=== PATIENT | male | born 1955 | race Caucasian/White ===

== ENCOUNTER 2017-12-11 09:53 | Outpatient (CLI) | payer MEDICARE, MEDICAID, SELFPAY ==
[2017-12-11] MEDS: Albuterol HFA 18 GM 200 PUFF INH IH (10:59)
[2017-12-11] MEDS: Inhaler, Assist Device 1 EACH MC (10:59)
--- NOTE | 2017-12-11 15:42 | PFT_ITS ---
PULMONARY FUNCTION TEST REPORT DATE OF SERVICE: December 11, 2017 REQUESTING PROVIDER: Tatyana Pugh APRN Spirometry shows no evidence of obstructive airways disease, but there is significant bronchodilator response. The flow-volume loop appears to have a fairly flattened inspiratory and expiratory loop. Lung volumes show mild restriction. Diffusion capacity normal. Airways resistance normal. IMPRESSION: Mild restrictive defect; this can represent restrictive lung disease however, given the fairly flattened appearance of the inspiratory and expiratory loop on flow-volume loop extrathoracic airway obstruction is also in the differential diagnosis. Therefore clinical correlation is recommended. CHICHI/brina D/ SEE SCANNED DOCUMENT IN THE EMR FOR DATA AND GRAPHS
== END 2017-12-11 10:13 ==
PROVIDERS: PCP Nurse Practitioner; Visit Provider Nurse Practitioner
DX: R05 Cough (principal)
CPT/HCPCS: 94060; 94150; 94726; 94729

== ENCOUNTER 2018-01-13 13:12 | Outpatient (REF) | payer MEDICARE, MEDICAID, SELFPAY ==
[2018-01-13 19:13] LABS: COMMENT (LAB VIEW ONLY) 44.14 mg/dL; Microalb ug/mg Crea 13.8 ug/mg Cr
== END 2018-01-13 13:32 ==
LOC: NCHCN 13:12
PROVIDERS: PCP Nurse Practitioner; Visit Provider Nurse Practitioner
DX: E11.9 Type 2 diabetes mellitus without complications (principal)
CPT/HCPCS: 82043; 82570

== ENCOUNTER → 2018-04-03 13:28 | Outpatient (BNVA) | payer MEDICARE, MEDICAID, SELFPAY | PROVIDERS: PCP Nurse Practitioner; Referring Provider Nurse Practitioner; Visit Provider Student in an Organized Health Care Education/Training Program | DX: R69 Illness, unspecified (principal) ==

== ENCOUNTER 2018-04-03 13:58 | Outpatient (CLI) | payer MEDICARE, MEDICAID, SELFPAY ==
[2018-04-03 14:44] LABS: Hemoglobin A1C 6.3 % (4.5-6.2)
[2018-04-03 14:45] LABS: Abs Immature Grans 0.01 k/cumm (0.0-0.09); Absolute Basophil Count 0.03 k/cumm (0.0-0.2); Absolute Monocyte Count 0.32 k/cumm (0.11-0.7); Absolute Neutrophil Count 2.42 k/cumm (1.2-6.7); Basophils % 0.7; Eosinophils % 4.6; HCT 39.3 % (40.0-50.0); HGB 12.8 g/dL (13.5-17.5); Immature Grans % 0.2; Mean Corp. HGB Concentration 32.6 g/dL (32.0-36.0); Mean Corpuscular Volume 89.1 fL (80-95); Mean Platelet Volume 9.6 fL (8.0-11.0); Monocytes % 7.3; Neutrophils % 55.2; Platelet Count 209 x1000/uL (130-400); RBC 4.41 m/cumm (4.50-6.00); RBC Distribution Width 13.2 % (11.8-14.1); White Blood Cell Count 4.38 k/cumm (4.4-10.8)
[2018-04-03 16:50] LABS: ALT 24 U/L (12-78); AST 20 U/L (15-37); Albumin 3.8 g/dL (3.4-5.0); Alkaline Phosphatase 79 U/L (46-116); Anion Gap 8.4 mmol/L (3-11); BUN 21 mg/dL (7-18); Bilirubin, Total 0.3 mg/dL (0.2-1.0); CO2 30.6 mmol/L (21.0-32.0); CREATININE 1.14 mg/dL (0.70-1.30); Chloride 102 mmol/L (98-107); Glucose 161 mg/dL (70-100); Magnesium 2.2 mg/dL (1.8-2.4); Potassium 3.9 mmol/L (3.5-5.1); Sodium 141 mmol/L (136-145); Total Protein 6.9 g/dL (6.4-8.2)
[2018-04-03 16:58] LABS: TSH (W/Ref FT4) 1.21 uIU/mL (0.358-3.74)
[2018-04-03 17:15] LABS: Cholesterol 115 mg/dL (50-200); HDL Cholesterol 28 mg/dL (40-60); LDL CHOLESTEROL 70 mg/dL (<100); Triglyceride 111 mg/dL (30-150)
== END 2018-04-03 14:18 ==
PROVIDERS: PCP Nurse Practitioner; Visit Provider Student in an Organized Health Care Education/Training Program
DX: I25.10 Atherosclerotic heart disease of native coronary artery without angina pectoris (principal); E11.9 Type 2 diabetes mellitus without complications; Z79.84 Long term (current) use of oral hypoglycemic drugs; I10 Essential (primary) hypertension
CPT/HCPCS: 36415; 80048; 80061; 80076; 83721; 99204; 99215; 83036; 83735; 84443; 85025; 93005; 93010; 93225

== ENCOUNTER → 2018-09-21 10:59 | Outpatient (BNVA) | payer MEDICARE, MEDICAID, SELFPAY | PROVIDERS: PCP Nurse Practitioner; Referring Provider Nurse Practitioner; Visit Provider Physical Therapy Assistant | DX: Z12.11 Encounter for screening for malignant neoplasm of colon (principal); I10 Essential (primary) hypertension; E11.9 Type 2 diabetes mellitus without complications; J44.9 Chronic obstructive pulmonary disease, unspecified; Z79.84 Long term (current) use of oral hypoglycemic drugs ==

== ENCOUNTER 2018-10-06 06:49 | Day surgery (SDC) | payer MEDICARE, MEDICAID, SELFPAY ==
[2018-10-06 07:38] VITALS: BP 128/84; PULSE 52; RESP 16; TEMP 36.4; O2SAT 98
[2018-10-06] MEDS: Lactated Ringers 1,000 ML 80 ML IV (07:44)
--- NOTE | 2018-10-06 09:14 | W.PM.DSUDISC ---
Discharge Plan Disposition Patient Disposition: HOME Condition: Good Discharge Details Attending Provider: Alisson Flower Primary Care Provider: Tatyana Pugh Home Meds and New Rx's Prescriptions: Continued metformin 500 mg tablet 500 mg PO DAILY RF: 0 aspirin [Aspir-81] 81 mg tablet,delayed release (DR/EC) 81 mg PO DAILY RF: 0 citalopram 20 mg tablet 20 mg PO DAILY RF: 0 omeprazole 20 mg capsule,delayed release(DR/EC) 20 mg PO DAILY RF: 0 metoprolol succinate 25 mg tablet extended release 24 hr 25 mg PO DAILY RF: 0 loratadine 10 mg capsule 10 mg PO DAILY RF: 0 Jardiance 10 mg tablet 10 mg PO DAILY RF: 0 One Daily Multi-Vit w-Mineral 4.5 mg iron tablet PO DAILY PRNRF: 0 sildenafil [Viagra] 50 mg tablet 50 mg PO DAILY PRNRF: 0 Symbicort 160-4.5 mcg/actuation HFA aerosol inhaler 2 puff IH Q12H RF: 0 lisinopril-hydrochlorothiazide 20-12.5 mg tablet 1 tab PO DAILY RF: 0 atorvastatin [Lipitor] 20 mg tablet 20 mg PO DAILY RF: 0 furosemide [Lasix] 20 mg tablet 20 mg PO DAILY RF: 0 ibuprofen 200 mg Tablet 800 mg PO PRN PRNRF: 0 Discontinued polyethylene glycol 3350 17 gram/dose powder 238 g PO ONCE Qty: 238 RF: 0 bisacodyl [Dulcolax (bisacodyl)] 5 mg tablet,delayed release (DR/EC) 5 mg PO ONCE Qty: 4 RF: 0 Discharge Instructions Additional Instructions: Your colonoscopy showed mild diverticulosis Make sure to take in 30 grams of fiber daily Plan for a screening colonoscopy in 10 years Activity:: Activity as Tolerated Diet:: As Tolerated Discharge Orders Discharge Orders: Discharge Order (Routine); Ordered 10/06/18 Ordered By: Alisson Flower DS: Diagnosis Discharge Diagnosis (1) Diverticulosis: Start date: 10/06/18 Start time: 09:16 Status: Acute
[2018-10-06 10:00] VITALS: BP 142/87; PULSE 60; RESP 16; TEMP 36.4; O2SAT 96
--- NOTE | 2018-10-06 13:59 | COLE_ITS ---
DATE OF PROCEDURE: October 06, 2018 PREOPERATIVE DIAGNOSIS: Need for screening. POSTOPERATIVE DIAGNOSIS: Mild diverticulosis. PROCEDURE: Colonoscopy. SURGEON: Alisson Flower M.D. ANESTHESIA: General. INDICATIONS: This is a 62-year-old man who presents for a routine colon evaluation. His last one wa s more than ten years ago. He has no symptoms or family history of colon cancer. PROCEDURE: He was placed in the left Melara' position. Propofol was titrated to sedation. Digital re ctal examination revealed no abnormalities. The scope was advanced to the cecum without difficulty. His prep was good. The distal ileum was briefly intubated and appeared normal. The scope was slowl y withdrawn with no abnormalities seen within the ascending, transverse or descending colon. In the sigmoid region he had scattered diverticular change. The rectum was normal, including on retroflex v iew. He tolerated the procedure well and was stable to recovery. He will need a follow-up screening exam again in ten years or sooner if symptoms indicate. cc: Tatyana Pugh APRN
== END 2018-10-06 10:10 | disposition home or self-care (01) ==
PROVIDERS: PCP Nurse Practitioner; Visit Provider Surgery
PROC: 0DJD8ZZ Inspection of Lower Intestinal Tract, Via Natural or Artificial Opening Endoscopic (ICD-10-PCS; CPT 45378; principal; 2018-10-06 08:30)
DX: Z12.11 Encounter for screening for malignant neoplasm of colon (principal); K57.30 Diverticulosis of large intestine without perforation or abscess without bleeding; I10 Essential (primary) hypertension; J44.9 Chronic obstructive pulmonary disease, unspecified
CPT/HCPCS: G0121

== ENCOUNTER 2019-02-08 11:30 | Outpatient (REF) | payer MEDICARE, MEDICAID, SELFPAY ==
[2019-02-08 18:56] LABS: COMMENT (LAB VIEW ONLY) 99.05 mg/dL
== END 2019-02-08 11:50 ==
LOC: NCHCN 11:30
PROVIDERS: PCP Nurse Practitioner; Visit Provider Nurse Practitioner
DX: E11.9 Type 2 diabetes mellitus without complications (principal)
CPT/HCPCS: 82043; 82570

== ENCOUNTER → 2019-04-08 09:02 | Outpatient (BNVA) | payer MEDICARE, MEDICAID, SELFPAY | PROVIDERS: PCP Nurse Practitioner; Referring Provider Nurse Practitioner; Visit Provider Internal Medicine Cardiovascular Disease | DX: R00.2 Palpitations (principal); I47.1 Supraventricular tachycardia; I49.1 Atrial premature depolarization; I25.10 Atherosclerotic heart disease of native coronary artery without angina pectoris; I10 Essential (primary) hypertension; E78.5 Hyperlipidemia, unspecified; I49.3 Ventricular premature depolarization | CPT/HCPCS: 99204; 99215; 93225 ==

== ENCOUNTER 2019-04-11 10:15 | Outpatient (CLI) | payer MEDICARE, MEDICAID, SELFPAY ==
--- NOTE | 2019-04-12 08:27 | W.HOLTRPT ---
Date of service: 04/12/19 Time of Service: 08:28 Holter Monitor Report Holter Monitor Note: This was a 2-day Holter monitor ordered for the indication of palpitations. ?The patient was in normal sinus rhythm for majority of the recording. ?There was one episode of supraventricular tachycardia which lasted 3 beats. There were rare (less than 1%) premature atrial contractions. ?There were 0 episodes of ventricular tachycardia and 8 single ventricular ectopic events. ?There were no episodes of atrial fibrillation, pauses greater than 3 seconds or evidence of high degree heart block. ?Patient diary events were associated with sinus rhythm, sinus tachycardia and lone premature atrial contraction.
== END 2019-04-11 10:35 ==
PROVIDERS: PCP Nurse Practitioner; Visit Provider Student in an Organized Health Care Education/Training Program
DX: R00.2 Palpitations (principal); I47.1 Supraventricular tachycardia; I49.1 Atrial premature depolarization; I49.3 Ventricular premature depolarization
CPT/HCPCS: 93226

== ENCOUNTER 2019-04-12 08:27 | Outpatient (CLI) | payer MEDICARE, MEDICAID, SELFPAY | END 2019-04-12 08:47 | PROVIDERS: PCP Nurse Practitioner; Referring Provider Nurse Practitioner; Visit Provider Internal Medicine Cardiovascular Disease | DX: R00.2 Palpitations (principal); I47.1 Supraventricular tachycardia; I49.1 Atrial premature depolarization; I49.3 Ventricular premature depolarization | CPT/HCPCS: 93227 ==

== ENCOUNTER 2019-05-04 13:25 | Outpatient (REF) | payer MEDICARE, MEDICAID, SELFPAY ==
[2019-05-04 14:41] LABS: ALT 34 U/L (16-63); AST 22 U/L (15-37); Anion Gap 11.4 mmol/L (3-11); BUN 18 mg/dL (7-18); Bilirubin, Total 0.6 mg/dL (0.2-1.0); CO2 25.6 mmol/L (21.0-32.0); CREATININE 1.03 mg/dL (0.70-1.30); Calculated LDL 55 mg/dL (<100); Chloride 103 mmol/L (98-107); Cholesterol 109 mg/dL (<200); Glucose 127 mg/dL (74-106); HDL Cholesterol 29 mg/dL (40-60); Potassium 4.5 mmol/L (3.5-5.1); Sodium 140 mmol/L (136-145); Total Protein 6.9 g/dL (6.4-8.2); Triglyceride 128 mg/dL (<150)
[2019-05-04 14:58] LABS: Alkaline Phosphatase 64 U/L (46-116); Calcium 8.4 mg/dL (8.5-10.1)
[2019-05-04 15:44] LABS: Hemoglobin A1C 6.5 % (3.8-5.6)
== END 2019-05-04 13:45 ==
LOC: NCHCN 13:25
PROVIDERS: PCP Nurse Practitioner; Visit Provider Nurse Practitioner
DX: E11.9 Type 2 diabetes mellitus without complications (principal); I10 Essential (primary) hypertension; E78.5 Hyperlipidemia, unspecified
CPT/HCPCS: 80053; 80061; 83036

== ENCOUNTER 2020-04-12 05:34 | Emergency (ER) | payer OTHER, MEDICAID, SELFPAY ==
[2020-04-12 05:39] VITALS: BP 144/80; PULSE 75; RESP 18; TEMP 36.6; O2SAT 97
[2020-04-12 05:46] VITALS: RESP 18
--- NOTE | 2020-04-12 05:51 | ED.GENADUL_ITS ---
Discharge Plan Disposition Patient Disposition: HOME Condition: Stable Discharge Details Clinical Impression: Globus pharyngeus Primary Care Provider: Tatyana Pugh ED Provider: Mark Wills Home Meds and New Rx's Prescriptions: New prednisone 20 mg tablet 60 mg PO DAILY 4 Days Qty: 12 RF: 0 Continued metformin 500 mg tablet 500 mg PO DAILY RF: 0 aspirin [Aspir-81] 81 mg tablet,delayed release (DR/EC) 81 mg PO DAILY RF: 0 citalopram 20 mg tablet 20 mg PO DAILY RF: 0 omeprazole 20 mg capsule,delayed release(DR/EC) 20 mg PO DAILY RF: 0 metoprolol succinate 25 mg tablet extended release 24 hr 25 mg PO DAILY RF: 0 loratadine 10 mg capsule 10 mg PO DAILY RF: 0 Jardiance 10 mg tablet 10 mg PO DAILY RF: 0 One Daily Multi-Vit w-Mineral 4.5 mg iron tablet PO DAILY PRNRF: 0 sildenafil [Viagra] 50 mg tablet 50 mg PO DAILY PRNRF: 0 Symbicort 160-4.5 mcg/actuation HFA aerosol inhaler 2 puff IH Q12H RF: 0 lisinopril-hydrochlorothiazide 20-12.5 mg tablet 1 tab PO DAILY RF: 0 atorvastatin [Lipitor] 20 mg tablet 20 mg PO DAILY RF: 0 furosemide [Lasix] 20 mg tablet 20 mg PO DAILY RF: 0 ibuprofen 200 mg Tablet 800 mg PO PRN PRNRF: 0 Discharge Instructions Additional Instructions: you likley are experiencing globus pharyngis which is the sensation of swelling in the throat I placed you on our follow up list to see an ears nose and throat specialist if you have inability to swallow liquids, feel more ill or have difficulty breathing return to the emergency department Medical Decision Making 64 yo male with hx of cad, copd, gerd, htn, t2dm comes in with feeling as though his tonsils are swollen. He states since he was in his 20's he's felt his tonsils have been enlarged but the last 3 months more so. This morning he felt a lump in the back of his throat so came here. Denies fevers, pain, difficulty breathing or swallowing. Arrives speaking in full sentences and swallowing normally without drooling. no submandibular swelling, no pain over the hyoid and no restricted neck movements. His uvual is midline, and doesn't appear swollen and no pharyngeal swelling, erythema or exudates. He is swallowing water n ormally and voice is unchanged per patient. I suspect globus pharyngeus and discussed this with the patient. I did offer to perform CT imaging but at this time given reassuring exam and chronicity of symptoms he would prefer to hold off and follow up with ENT for an exam and return if he feels he is worsening which I feel is reasonable given he has no findings on exam to suggest rpa, port captain or epiglotitis. Will place him on our care management follow up list to see ENT within a week and return precautions given. Differential Diagnosis Differential Diagnosis: globus pharyngeus, tonsilar hypertrophy Medical Records Medical records reviewed: Yes I reviewed the patient's medical records. HPI General Mode of arrival: ambulatory . Date/Time Provider Initiated Documentation: 04/12/20 05:36 . Limitations to Documentation: no limitations . Information obtained by: patient . History of Present Illness 64 year old M presents to the emergency department with the chief complaint of feels tonsils are swollen, Patient started experiencing this month(s) (3) and it has been constant. No relieving factors improve symptom(s), No exacerbating factors reported . Patient notes no other symptoms.. Patient did receive the following treatments prior to arrival, none Related Data Home Medications Medication Instructions Recorded Confirmed aspirin 81 mg tablet,delayed 81 mg PO DAILY 04/03/18 04/12/20 release citalopram 20 mg tablet 20 mg PO DAILY 04/03/18 04/12/20 empagliflozin 10 mg tablet 10 mg PO DAILY 04/03/18 04/12/20 loratadine 10 mg capsule 10 mg PO DAILY 04/03/18 04/12/20 metformin 500 mg tablet 500 mg PO DAILY tab 04/03/18 04/12/20 metoprolol succinate 25 mg 25 mg PO DAILY 04/03/18 04/12/20 tablet,extended release 24 hr omeprazole 20 mg capsule,delayed 20 mg PO DAILY 04/03/18 04/12/20 release atorvastatin 20 mg tablet 20 mg PO DAILY 09/01/18 04/12/20 budesonide-formoterol HFA 160 2 puff IH Q12H 09/01/18 04/12/20 mcg-4.5 mcg/actuation aerosol inhaler furosemide 20 mg tablet 20 mg PO DAILY 09/01/18 04/12/20 lisinopril 20 1 tab PO DAILY 09/01/18 04/12/20 mg-hydrochlorothiazide 12.5 mg tablet multivitamin with minerals-ferrous mg PO DAILY PRN tab 09/01/18 04/08/19 sulfate 4.5 mg iron tablet sildenafil 50 mg tablet 50 mg PO DAILY PRN 09/01/18 04/12/20 ibuprofen 800 mg PO PRN PRN 10/06/18 04/12/20 prednisone 60 mg PO DAILY 4 Days #12 tab 04/12/20 Previous Rx's Medication Instructions Recorded prednisone 60 mg PO DAILY 4 Days #12 tab 04/12/20 Allergies Allergy/AdvReac Type Severity Reaction Status Date / Time No Known Allergies Allergy Verified 04/08/19 09:14 General Stated Complaint: GenMedical EMILIANO: 3 Review of Systems All systems reviewed & are unremarkable except as noted in HPI and below Constitutional Constitutional: Denies chills, Denies fever(s) and Denies weakness ENT Ears, Nose, Mouth, and Throat: Denies change in voice Cardiovascular Cardiovascular: Denies chest pain and Denies dyspnea Respiratory Respiratory: Denies cough and Denies dyspnea Gastrointestinal Gastrointestinal: Denies abdominal pain, Denies nausea and Denies vomiting Musculoskeletal Musculoskeletal: Denies joint swelling Neurologic Neurologic: Denies weakness Psychiatric Psychiatric: Denies depression [facility] Medical History (Updated 04/12/20 @ 05:53 by Mark Wills MD) Balance problems CAD (coronary artery disease) Chest pain Chronic cough Chronic low back pain Depression Diverticulosis Dyslipidemia GERD (gastroesophageal reflux disease) History of non-insulin dependent diabetes mellitus Hypertension Positive cardiac stress test (~2015) PVD (peripheral vascular disease) Surgical History Bone spur of foot Excision Hx of heart artery stent SYLVESTER to D1 and RCA Hx of inguinal hernia repair Hx of umbilical hernia repair S/P colonoscopy done 10/06/18 Social History Smoking/Tobacco Use Status: Never Smoking risk assessment performed?: Yes Alcohol Intake: never Drug use: Never Substance use type: does not use What type of physical activity do you participate in: none Do you feel safe at home: Yes Do you feel safe in your relationship?: Yes Exam Const General: no acute distress Orientation: alert HENMT Head: normal to inspection Ears: external ears normal General nose exam: external nose normal Mouth: moist mucous membranes Eyes General: appearance normal, both eyes and all related structures Neck Neck: normal visual inspection Resp Effort & Inspection: normal respiratory effort and able to speak in complete sentences Cardio Rate: regular rate Skin General skin exam: no rashes or lesions noted Neuro General: patient alert and patient oriented x3 Extrem General: normal to inspection Psych Mental Status: mental status grossly normal Course Vital Signs Vital signs: Vital Signs Temperature 36.6 C 04/12/20 05:39 Pulse 75 04/12/20 05:39 Respiratory Rate 18 04/12/20 05:39 Blood Pressure 144/80 H 04/12/20 05:39 Pulse Oximetry 97 04/12/20 05:39 Temperature 36.6 C 04/12/20 05:39 Temperature Source Skin 04/12/20 05:39 Pulse 75 04/12/20 05:39 Respiratory Rate 18 04/12/20 05:46 Respiratory Effort Non-Labored 04/12/20 05:46 Respiratory Depth Normal 04/12/20 05:46 Respiratory Pattern Normal 04/12/20 05:46 Blood Pressure 144/80 H 04/12/20 05:39 Blood Pressure Position Sitting 04/12/20 05:39 Pulse Oximetry 97 04/12/20 05:39 Oxygen Delivery Method Room Air 04/12/20 05:39 Oxygen Flow Rate 0 04/12/20 05:39
[2020-04-12] MEDS: predniSONE 20 MG TAB 60 MG PO (05:57)
[2020-04-12 06:05] VITALS: BP 144/80; PULSE 75; RESP 18; TEMP 36.6; O2SAT 97
--- NOTE | 2020-04-12 07:25 | NUR.NOTE ---
Referral faxed to ENT for follow-up.Nursing Note:
== END 2020-04-12 06:05 | disposition home or self-care (01) ==
PROVIDERS: Emergency Provider Emergency Medicine; PCP Nurse Practitioner
DX: F45.8 Other somatoform disorders (principal); J44.9 Chronic obstructive pulmonary disease, unspecified; I10 Essential (primary) hypertension; E11.9 Type 2 diabetes mellitus without complications; Z79.84 Long term (current) use of oral hypoglycemic drugs
CPT/HCPCS: 99283; J7512

== ENCOUNTER → 2020-04-17 13:49 | Outpatient (BNVA) | payer OTHER, MEDICAID, SELFPAY | PROVIDERS: PCP Nurse Practitioner; Referring Provider Nurse Practitioner; Visit Provider Internal Medicine Cardiovascular Disease | DX: I25.10 Atherosclerotic heart disease of native coronary artery without angina pectoris (principal); J44.9 Chronic obstructive pulmonary disease, unspecified; R00.2 Palpitations | CPT/HCPCS: 99214; 99442 ==

== ENCOUNTER 2020-05-15 20:27 | Outpatient (REF) | payer OTHER, MEDICAID, SELFPAY ==
[2020-05-15 19:05] LABS: ALT 50 U/L (16-63); AST 27 U/L (15-37); Albumin 3.7 g/dL (3.4-5.0); Alkaline Phosphatase 60 U/L (46-116); Anion Gap 10.9 mmol/L (3-11); BUN 26 mg/dL (7-18); Bilirubin, Total 0.4 mg/dL (0.2-1.0); CO2 26.1 mmol/L (21.0-32.0); CREATININE 1.1 mg/dL (0.70-1.30); Calcium 8.6 mg/dL (8.5-10.1); Calculated LDL 31 mg/dL (<100); Chloride 104 mmol/L (98-107); Cholesterol 118 mg/dL (<200); Glucose 220 mg/dL (74-106); HDL Cholesterol 25 mg/dL (40-60); Potassium 4.1 mmol/L (3.5-5.1); Sodium 141 mmol/L (136-145); Total Protein 6.7 g/dL (6.4-8.2); Triglyceride 313 mg/dL (<150)
[2020-05-15 19:12] LABS: COMMENT (LAB VIEW ONLY) 37.01 mg/dL
== END 2020-05-15 20:28 | disposition home or self-care (01) ==
LOC: NCHCN 20:27
PROVIDERS: PCP Nurse Practitioner; Visit Provider Nurse Practitioner
DX: E11.8 Type 2 diabetes mellitus with unspecified complications (principal); I10 Essential (primary) hypertension; I25.10 Atherosclerotic heart disease of native coronary artery without angina pectoris; E78.5 Hyperlipidemia, unspecified
CPT/HCPCS: 80053; 80061; 82043; 82570; 83036

== ENCOUNTER → 2020-05-23 01:15 | Outpatient (CLI) | payer OTHER, MEDICAID, SELFPAY ==
--- NOTE | 2020-05-23 06:45 | DI.NM_ITS ---
APPROVED REPORT Exam: Pharmacologic Patient Location: Out-Patient Room/Bed: Stress Nurse: Betty Sharif RN Ordering Provider:IRA HAGEN, Contact Number: BMI: 35.87 Baseline Rhythm: Sinus Rhythm, RBBB Comment: inverted T waves in leads V1-V3 Indications: Shortness of breath, Coronary artery disease. Medical History Medical History: GERD, HTN, HLD, CAD, COPD, DM II, PVD, ARMANDO. Cardiac Medications: Sildenafil, Omeprazole, Metoprolol succinate, Metformin, Furosemdie, Atorvastati n, Aspirin, Empagliflozin. , Allergies: No known drug allergies Cardiac Risk Factors: HTN, Hyperlipidemia, Diabetes (non-insulin), FHX of CAD, COPD, PVD, CVD, Obesit y Previous Cardiac Procedures: PCI w/ stents x 2 Pretest Chest Pain Characteristics: No chest pain Exercise History: Sedentary Physical Disabilities: None. Lung Sounds: Clear to auscultation Heart Sounds: Regular Stress Test Details Test: Exercise stress converted to pharmacologic stress due to failure to obtain a diagnostic stress test. Reason for pharmacologic stress test: physical limitation. Nuclear Acquisition: Rest Tc-99m/Stress Tc-99m 1 day Rest Isotope: Tc-99m Sestamibi. Dose: 11.5 Date: 05/23/2020 Injection Time: 0915 Stress Isotope: Tc-99m Sestamibi. Dose: 32.8 Date: 05/23/2020 Injection Time: 1035 HR Resting HR Supine: 64 bpm Max Heart Rate (APMHR): 157 bpm Resting HR Standin bpm Target HR (85% APMHR): 133 bpm Max HR Achieved: 135 bpm % of APMHR: 85 Recovery HR: 96 bpm HR response to stress: Normal HR response to stress Comment: metoprolol succinate held for 48 hours. BP Resting BP Supine: 118/68 mmHg Resting BP Standin/68 mmHg Max BP: 130/72 mmHg Recovery BP: 124/68 mmHg BP response to stress: Normal blood pressure response to stress. ECG Resting ECG: Sinus Rhythm, RBBB Ectopy: None. Comment: inverted T waves in leads V1-V3 Stress ECG: Sinus Tachycardia, RBBB ST Change: No significant ST segment changes noted Arrhythmia: None Comment: T wave inversions in leads V1-V3 Recovery ECG: Sinus Rhythm, RBBB Recovery ST Change: No significant ST segment changes noted Recovery Arrhythmia: None Comment: inverted T waves in leads V1-V3 Clinical Reason for Termination: Dizziness Stress Symptoms: Headache, Dyspnea, Stomach pain, Dizziness Exercise duration: 4 min15 sec Highest Stage Reached: Stage 2: 2.5 mph at 12% grade. Exercise capacity: 6.21 METs Chopra Treadmill Score: 5.5 Rate Pressure Product: [id number] Stress ECG Conclusion 1. The patient exercised for 4 minutes (6 METS). Exercise was stopped due to dizziness. 2. Patient had no symptoms consistent with ischemia. 3. The ECG portion of this exam is nondiagnostic due to baseline abnormalities. Chopra Treadmill Score is 5.5 which is Low risk. Stress Test Summary STAGE Time (mins) Speed (mph) Grade (%) HR BP SYMPTOMS METS Supine 64 118/68 Standing 79 120/68 SpO2 97% 1 min post Lexiscan injection 119 122/70 SOB, stomach pain 3 min post Lexiscan injection 105 126/72 Headache. 6 min post Lexiscan injection 96 124/68 Symptoms resolved. MPI Conclusion The ejection fraction was 57% with stress. There were no wall motion abnormalities. There is a small area on the basal to mid lateral wall with a reversible perfusion defect suggestive of ischemia. This represents an abnormal SPECT stress test.
[2020-05-23] MEDS: Regadenoson 0.4 MG/5 ML SYR IVP (10:58)
== END ==
PROVIDERS: PCP Nurse Practitioner; Visit Provider Internal Medicine Cardiovascular Disease
DX: I25.10 Atherosclerotic heart disease of native coronary artery without angina pectoris (principal); R06.02 Shortness of breath; I10 Essential (primary) hypertension; E78.5 Hyperlipidemia, unspecified; E11.51 Type 2 diabetes mellitus with diabetic peripheral angiopathy without gangrene; Z82.49 Family history of ischemic heart disease and other diseases of the circulatory system; J44.9 Chronic obstructive pulmonary disease, unspecified; E66.9 Obesity, unspecified; G47.33 Obstructive sleep apnea (adult) (pediatric)
CPT/HCPCS: 78452; 93016; 93018; 93017; J2785

== ENCOUNTER 2020-06-07 16:42 | Inpatient (IN) | payer OTHER, MEDICAID, SELFPAY ==
[2020-06-07] VITALS (49 sets, daily range): BP systolic 102–150; BP diastolic 62–108; PULSE 53–73; RESP 10–21; TEMP 36–36.5; O2SAT 91–98
--- NOTE | 2020-06-07 16:45 | RT.EKG_ITS ---
APPROVED REPORT Exam: Resting ECG Patient Location: E HR:64 bpm ECG Measurements Heart Rate 64 AXIS AZ 160 P 39 QRSd 136 QRS -37 QT 440 T 17 QTc 453 Conclusion Sinus rhythm. Right bundle branch block Non specific ST changes
--- NOTE | 2020-06-07 16:54 | ED.GENADUL_ITS ---
Discharge Plan Disposition Patient Disposition: [facility] INPATIENT Condition: Stable Discharge Details Clinical Impression: CAD (coronary artery disease), Chest pain Admit Date/Time: 06/07/20 19:47 Admit Provider: Sinan Moreira Attending Provider: Sinan Moreira Primary Care Provider: Tatyana Pugh ED Provider: Chanda Sanches Discharge Data Discharge Date/Time-TO BE ENTERED AT DEPARTURE: 06/07/20 20:30 Medical Decision Making <Chanda Sanches - Last Filed: 06/08/20 21:03> 64-year-old male presents to the ER chief complaint of right-sided chest pain which he describes as sharp, intermittent comes and goes which began this morning. He is recent status post stent placement at [facility] on Friday. He reports headache, no nausea vomiting diarrhea, denies any shortness of breath or cough. He does state that movement makes it somewhat worse. He does take a baby aspirin daily and did take his normal daily medications today. He denies taking the Viagra he states last taken was 1 week ago. He has a past medical history of coronary artery disease, COPD, GERD, hypertension, type 2 diabetes, hyperlipidemia, obstructive sleep apnea. He had an abnormal cardiac SPECT stress test on May 23, 2020 which showed ejection fraction 57% with stress no wall motion abnormalities, the small area to the basal and mid lateral wall with reversible perfusion defect suggestive of acute ischemia. EKG was reviewed by Jose Diaz MD ER attending, please see his official report, there was old available for review. Normal sinus rhythm right bundle branch block nonspecific ST abnormalities. At this time 0.4 mg nitro sublingual x1 ordered patient states he has not taken Viagra in the last week. Patient states that pain came down from a 7 to 6 sublingual nitro. Instructed RN to give a second 0.4 mg nitro sublingual. 1700: Chest pain is now resolved after the second sublingual nitroglycerin sublingual tablet. 1710: O2 sat drops down to 88-89% on room air increases to 92% with deep breathing, will place patient on 2 L nasal cannula. O2 sat is now at 96% with encouraged deep breathing. Initial troponin is elevated at 0.10, patient denies any chest pain at this time after 2-0.4 sublingual nitro's. 181: Call made to transfer center to speak with cardiology at [facility] regarding patient possible transfer versus admission for observation. And serial troponins. 1856: Spoke with Dr. Torres with [facility] cardiology they are currently listing beds for tomorrow. He reccommends heparin gtt, and keeping him on the Brilinta, he accepts patient for transfer for tomorrow, [facility] is accepting. He did state that if troponins are increasing and chest pain returns or patient worsens in any way that they will consider a more urgent transfer for recatheterization. 1947: Spoke with Dr. Moreira who is on for hospitalist at this time he does accept patient for admission to ICU pending transfer to [facility]. Medical Records Medical records reviewed: Yes I reviewed the patient's medical records. Medical records narrative: Records reviewed from [facility] catheter which was done on 06/05, insurance agent was Dr. Reagan CAO he had a PCI of the ostial RCA with SYLVESTER stent placed, laser atherectomy, prior to stent placed he had 80 to 90% lesion of the RCA he was instructed to continue 81 mg aspirin daily, 90 mg Brilinta and increase his Lipitor to 40 mg a day. <Jose Diaz MD - Last Filed: 06/07/20 19:04> Patient seen, evaluated [id number], discussed with Ms. Sanches. I agree with her assessment and plan. HPI <Chanda Myron - Last Filed: 06/08/20 21:03> General Mode of arrival: wheelchair . Date/Time Provider Initiated Documentation: 06/07/20 16:43 . Limitations to Documentation: no limitations . Information obtained by: patient . HPI Narrative: 64-year-old male presents to the ER chief complaint of right-sided chest pain which he describes as sharp, intermittent comes and goes which began this morning. He is recent status post stent placement at [facility] on Friday. He reports headache, no nausea vomiting diarrhea, denies any shortness of breath or cough. He does state that movement makes it somewhat worse. He does take a baby aspirin daily and did take his normal daily medications today. He denies taking the Viagra he states last taken was 1 week ago. He has a past medical history of coronary artery disease, COPD, GERD, hypertension, type 2 diabetes, hyperlip idemia, obstructive sleep apnea. He had an abnormal cardiac SPECT stress test on May 23, 2020 which showed ejection fraction 57% with stress no wall motion abnormalities, the small area to the basal and mid lateral wall with reversible perfusion defect suggestive of acute ischemia. Related Data Home Medications Medication Instructions Recorded Confirmed aspirin 81 mg tablet,delayed 81 mg PO DAILY 04/03/18 06/07/20 release citalopram 20 mg tablet 20 mg PO DAILY 04/03/18 06/07/20 empagliflozin 10 mg tablet 10 mg PO DAILY 04/03/18 06/07/20 loratadine 10 mg capsule 10 mg PO DAILY 04/03/18 06/07/20 metformin 500 mg tablet 500 mg PO DAILY tab 04/03/18 06/07/20 metoprolol succinate 25 mg 25 mg PO DAILY 04/03/18 06/07/20 tablet,extended release 24 hr omeprazole 20 mg capsule,delayed 20 mg PO DAILY 04/03/18 06/07/20 release budesonide-formoterol HFA 160 2 puff IH Q12H 09/01/18 06/07/20 mcg-4.5 mcg/actuation aerosol inhaler furosemide 20 mg tablet 20 mg PO DAILY 09/01/18 06/07/20 lisinopril 20 1 tab PO DAILY 09/01/18 06/07/20 mg-hydrochlorothiazide 12.5 mg tablet multivitamin with minerals-ferrous mg PO DAILY PRN tab 09/01/18 04/08/19 sulfate 4.5 mg iron tablet sildenafil 50 mg tablet 50 mg PO DAILY PRN 09/01/18 06/07/20 ibuprofen 800 mg PO PRN PRN 10/06/18 06/07/20 Brilinta mg 06/07/20 06/07/20 atorvastatin [Lipitor] 40 mg PO QPM #0 tab 06/08/20 heparin (porcine) in 5 % dex 25,000 units IV INFUSION #0 ml 06/08/20 Previous Rx's Medication Instructions Recorded atorvastatin [Lipitor] 40 mg PO QPM #0 tab 06/08/20 heparin (porcine) in 5 % dex 25,000 units IV INFUSION #0 ml 06/08/20 Allergies Allergy/AdvReac Type Severity Reaction Status Date / Time No Known Allergies Allergy Verified 06/07/20 17:04 General EMILIANO: 3 Review of Systems <Chanda Sanches - Last Filed: 06/08/20 21:03> Narrative: Constitutional: Negative for weight loss, alert and oriented, well groomed, normal body habitus, appears comfortable. HEENT: Denies trauma, headaches, blurry vision, nasal discharge, sore throat, trouble swallowing. Chest: Denies palpitations, irregular rhythm, reports right sided sharp intermittent chest pains that began this morning. Respiratory: Denies cough, hemoptysis. Positive shortness of breath with exertion. GI: Denies abdominal pain, vomiting, diarrhea, constipation. Positive nausea no vomiting. : Denies dysuria, hematuria, flank pain, rectal bleeding. Neuro: Denies dizziness, blurry vision, weakness, syncope, headache or facial numbness. Hematologic: Denies easy bruising, intolerance to heat or cold, hair loss. PFSH <Chanda Sanches - Last Filed: 06/08/20 21:03> Medical History Balance problems CAD (coronary artery disease) Chest pain Chronic cough Chronic low back pain Depression Diverticulosis Dyslipidemia GERD (gastroesophageal reflux disease) History of non-insulin dependent diabetes mellitus Hypertension Positive cardiac stress test (~2015) PVD (peripheral vascular disease) Surgical History Bone spur of foot Excision Hx of heart artery stent SYLVESTER to D1 and RCA Hx of inguinal hernia repair Hx of umbilical hernia repair S/P colonoscopy done 10/06/18 Social History Smoking/Tobacco Use Status: Never Smoking risk assessment performed?: Yes Alcohol Intake: never Drug use: Never Substance use type: does not use What type of physical activity do you participate in: none Do you feel safe at home: Yes Do you feel safe in your relationship?: Yes Exam <Chanda Sanches - Last Filed: 06/08/20 21:03> Narrative Exam Narrative: Constitutional: Alert and oriented x3. Appears stated age. Normal body habitus. Head: Normocephalic, no trauma. Eyes: Pupils PERRLA, Red reflex noted, EOM's intact. Eyelids symmetrical without lesions, discharge, or swelling. ENT: Bilateral TM's WNL, External ear normal to inspection, no mastoid TTP, swelling, or erythema, Nasal turbinates WNL, no nasal discharge. Normal dentition, Posterior pharynx WNL, no exudate. Chest: RRR, Normal S1, S2, distal pulses intact. Resp: Lungs clear to auscultation bilaterally, no wheezes, rales, or rhonchi. Musculoskeletal: Normal gait, 5/5 strength to all four extremities. Skin: No suspicious rashes or lesions. Capillary refill less than 2 sec. Neurologic: Cranial nerves II-XII intact. Alert and oriented x 3. DTR's intact. Hematologic/Lymphatic: No ecchymosis, no lymphadenopathy.
[2020-06-07] MEDS: nitroGLYcerin 0.4 MG TAB SL ×2 (16:58→17:04)
[2020-06-07] MEDS: Normal Saline 1,000 ML 125 ML IV (17:00)
[2020-06-07] MEDS: Aspirin 81 MG CHEW 162 MG CH (17:02)
[2020-06-07 17:24] LABS: Abs Immature Grans 0.01 10^3/uL (0.0-0.06); Absolute Basophil Count 0.03 10^3/uL (0.0-0.2); Absolute Eosinophil Count 0.27 10^3/uL (0.0-0.7); Absolute Lymphocyte Count 1.79 10^3/uL (1.2-3.4); Absolute Monocyte Count 0.44 10^3/uL (0.1-0.8); Absolute Neutrophil Count 3.35 10^3/uL (1.2-6.7); Basophils % 0.5; Eosinophils % 4.6; HCT 44.8 % (40.0-50.0); HGB 14.6 g/dL (13.5-17.5); Immature Grans % 0.2; Lymphocytes % 30.4; MCH 28.3 pg (27.0-33.0); MCHC 32.6 % (32.0-36.0); MPV 9.8 fL (8.0-11.0); Monocytes % 7.5; Neutrophils % 56.8; Nucleated RBC 0 %; Platelet Count 251 10^3/uL (130-400); RBC 5.15 10^6/uL (4.36-5.78); RDW 13.5 % (11.8-14.1); RDW-SD 43.4 fL; WBC 5.89 10^3/uL (4.4-10.8)
[2020-06-07 17:37] LABS: Prothrombin Time 9.8 sec (9.3-11.0)
[2020-06-07 17:48] LABS: ALT 45 U/L (16-63); AST 19 U/L (15-37); Albumin 4.2 g/dL (3.4-5.0); Alkaline Phosphatase 70 U/L (46-116); Anion Gap 9.7 mmol/L (3-11); BUN 22 mg/dL (7-18); Bilirubin, Total 0.6 mg/dL (0.2-1.0); CO2 26.3 mmol/L (21.0-32.0); CREATININE 1.1 mg/dL (0.70-1.30); Calcium 9.1 mg/dL (8.5-10.1); Chloride 101 mmol/L (98-107); Glucose 127 mg/dL (74-106); Magnesium 2.3 mg/dL (1.8-2.4); Sodium 137 mmol/L (136-145); Total Protein 7.8 g/dL (6.4-8.2)
--- NOTE | 2020-06-07 18:32 | DI.RAD_ITS ---
EXAM: XR CHEST 2V PA LATERAL CLINICAL HISTORY: Chest pain, Recent Stent placed. TECHNIQUE: 2D digital imaging was performed. COMPARISON: No exams were available for comparison FINDINGS: Heart size is upper normal. The mediastinum is not widened. There is platelike atelectasis in the left lung base. Right lung is clear. No pleural effusion. No pneumothorax. IMPRESSION: Subsegmental platelike atelectasis or scarring in the lingular segment of the left lung base. DATA REPOSITORY: RADIATION DOSE DELIVERED:
--- NOTE | 2020-06-07 18:41 | DI.VRAD_ITS ---
PROCEDURE INFORMATION: Exam: XR Chest Exam date and time: 06/07/2020 4:53 PM Age: 64 years old Clinical indication: Chest pain; Prior surgery TECHNIQUE: Imaging protocol: XR of the chest Views: 2 views. COMPARISON: No relevant prior studies available. FINDINGS: Lungs: Clear lungs. Pleural spaces: No pneumothorax. No sizable pleural effusion. Heart/Mediastinum: No cardiomegaly. Bones/joints: Unremarkable. IMPRESSION: Clear lungs. Dictated and Authenticated by: Shyam Alexandre MD. Ordering:BRANDEE Armas MD
[2020-06-07] MEDS: nitroGLYcerin 2% 1 INCH/1 GM PKT TP (18:58)
[2020-06-07] MEDS: Aspirin 81 MG CHEW CH (19:24)
--- NOTE | 2020-06-07 19:30 | RT.EKG_ITS ---
APPROVED REPORT Exam: Resting ECG Patient Location: E HR:54 bpm ECG Measurements Heart Rate 54 AXIS WI 183 P -7 QRSd 144 QRS -34 QT 473 T 4 QTc 448 Conclusion Sinus bradycardia Right bundle branch block. Nonspecific st changes
[2020-06-07] MEDS: Acetaminophen 500 MG TAB PO (19:36)
[2020-06-07] MEDS: Atorvastatin 40 MG TAB PO (19:36)
[2020-06-07] MEDS: Ticagrelor 90 MG TAB PO (19:37)
[2020-06-07 20:13] LABS: Troponin I 0.12 ng/mL (<0.06)
[2020-06-07 20:22] LABS: PTT Activated 23.6 sec (21.0-27.5)
[2020-06-07] MEDS: Budesonide/Formoterol 160/4.5 6 GM 60 PUFF INH IH (21:28)
[2020-06-07] MEDS: Citalopram 20 MG TAB PO (21:28)
--- NOTE | 2020-06-07 21:34 | W.PM.HP.N ---
Date of service: 06/07/20 Time of Service: 21:34 Assessment and Plan Assessment and plan (1) Acute coronary syndrome with high troponin: Status: Acute Assessment and plan: Systemic heparin topical Nitropaste his blood pressure allows, serial troponin levels, dual antiplatelet therapy and beta-blockers. Transfer to [facility] cardiology service in the morning bed becomes available. We will keep n.p.o. after midnight in the event he needs urgent cardiac catheterization. (2) CAD (coronary artery disease): Status: Chronic Assessment and plan: Continue beta-blockers, atorvastatin, and dual antiplatelet therapy with Brilinta and aspirin. Continue systemic heparin Qualifiers: Associated angina: with unstable angina Coronary Disease-Associated Artery/Lesion type: [place] artery [place] vs. transplanted heart: [place] heart Qualified Code(s): I25.110 - Atherosclerotic heart disease of [place] coronary artery with unstable angina pectoris (3) Hypertension: Status: Chronic Assessment and plan: Continue lisinopril and hydrochlorothiazide Qualifiers: Hypertension type: essential hypertension Qualified Code(s): I10 - Essential (primary) hypertension (4) Type 2 diabetes mellitus: Status: Chronic Assessment and plan: Hold patient's Jardiance and Metformin. Will monitor blood sugars before meals and at bedtime and cover with sliding scale NovoLog Qualifiers: Diabetes mellitus complication detail: with polyneuropathy Diabetes mellitus complication status: with neurologic complications Diabetes mellitus intermediate project manager insulin use: without intermediate project manager use Qualified Code(s): E11.42 - Type 2 diabetes mellitus with diabetic polyneuropathy (5) Hyperlipidemia: Status: Chronic Assessment and plan: Continue high-dose atorvastatin Qualifiers: Hyperlipidemia type: unspecified Qualified Code(s): E78.5 - Hyperlipidemia, unspecified History of Present Illness History of Present Illness Chief Complaint: chest pain Narrative: 64-year-old male non-smoker with history of diabetes mellitus type 2, essential hypertension, coronary artery disease who is status post drug-eluting stent to first diagonal as well as the ostium of his RCA in 2016 who recently underwent stress MPI and was found to have ischemia in his RCA territory subsequently underwent cardiac catheterization found to have 75% in-stent restenosis of his ostial RCA stent with patent diagonal stent. He underwent cardiac catheterization June 05, 2020 which she had laser atherectomy without complications. Since that time patient's been experiencing exertional dyspnea and right-sided sharp chest pains with exertion and alleviated with rest. Symptoms have been waxing and waning throughout the day with activity but relieved w/ rest. 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 Upon arrival to emergency department he was found to have EKG was sinus rhythm with right bundle branch block but no acute ischemic ST or T wave changes. Initial troponin 0.1 0 repeat at 3 hours after admission was 0.12. Chest pain was alleviated by 2 sublingual nitroglycerin tablets and was put on nitroglycerin paste. CHAVA Costa in the emergency department at [facility] contacted [facility] financial aid director cement contractor and spoke with the [employer] administrator Dr.Rajan Torres, who indicated that the patient's troponin may be residual from the PCI procedure on Friday or the patient may have sustained an NSTEMI today and he recommended hospitalization at [facility] and initiation of heparin. Patient's been compliant with his dual platelet antitherapy including Brilinta and aspirin. [facility] do not have any beds available tonight but indicated that they would take him tomorrow soon as a bed becomes available. Patient is now admitted to intensive care unit on nitroglycerin paste on a heparin drip along his continue beta-blockers and dual antiplatelet therapy and atorvastatin. Dr. Torres recommended exercising caution with use of nitrates because of the patient's area of his stent could involve his RV and if he sustains an RV infarct he may become preload dependent and developed hypotension. Currently patient is pain-free. Review of Systems All systems reviewed & are unremarkable except as noted in HPI and below Constitutional Constitutional: Reports as per HPI Cardiovascular Cardiovascular: Reports as per HPI, Reports chest pain with activity, Reports dyspnea and Reports dyspnea on exertion Respiratory Respiratory: Denies chest congestion, Denies cough, Reports dyspnea, Reports dyspnea on exertion and Denies wheezing Gastrointestinal Gastrointestinal: Reports system reviewed and no additional complaints, except as documented Genitourinary Genitourinary: Reports system reviewed and no additional complaints, except as documented Musculoskeletal Musculoskeletal: Reports system reviewed and no additional complaints, except as documented Allergic/Immunologic Allergic/Immunologic: Denies wheezing [facility] Medical History (Updated 06/07/20 @ 23:01 by Sinan Moreira) Balance problems CAD (coronary artery disease) Chest pain Chronic cough Chronic low back pain Depression Diverticulosis Dyslipidemia GERD (gastroesophageal reflux disease) History of non-insulin dependent diabetes mellitus Hypertension Positive cardiac stress test (~2016) PVD (peripheral vascular disease) Surgical History Bone spur of foot Excision Hx of heart artery stent SYLVESTER to D1 and RCA Hx of inguinal hernia repair Hx of umbilical hernia repair S/P colonoscopy done 10/06/18 Social History Smoking/Tobacco Use Status: Never Smoking risk assessment performed?: Yes Alcohol Intake: never Drug use: Never Substance use type: does not use What type of physical activity do you participate in: none Do you feel safe at home: Yes Do you feel safe in your relationship?: Yes Meds Home Medications and Allergies Allergies Allergy/AdvReac Type Severity Reaction Status Date / Time No Known Allergies Allergy Verified 06/07/20 17:04 Home Medications Medication Instructions Recorded Confirmed Type aspirin 81 mg tablet,delayed 81 mg PO DAILY 04/03/18 06/07/20 History release citalopram 20 mg tablet 20 mg PO DAILY 04/03/18 06/07/20 History empagliflozin 10 mg tablet 10 mg PO DAILY 04/03/18 06/07/20 History loratadine 10 mg capsule 10 mg PO DAILY 04/03/18 06/07/20 History metformin 500 mg tablet 500 mg PO DAILY tab 04/03/18 06/07/20 History metoprolol succinate 25 mg 25 mg PO DAILY 04/03/18 06/07/20 History tablet,extended release 24 hr omeprazole 20 mg capsule,delayed 20 mg PO DAILY 04/03/18 06/07/20 History release atorvastatin 20 mg tablet 20 mg PO DAILY 09/01/18 06/07/20 History budesonide-formoterol HFA 160 2 puff IH Q12H 09/01/18 06/07/20 History mcg-4.5 mcg/actuation aerosol inhaler furosemide 20 mg tablet 20 mg PO DAILY 09/01/18 06/07/20 History lisinopril 20 1 tab PO DAILY 09/01/18 06/07/20 History mg-hydrochlorothiazide 12.5 mg tablet multivitamin with minerals-ferrous mg PO DAILY PRN tab 09/01/18 04/08/19 History sulfate 4.5 mg iron tablet sildenafil 50 mg tablet 50 mg PO DAILY PRN 09/01/18 06/07/20 History ibuprofen 800 mg PO PRN PRN 10/06/18 06/07/20 History ticagrelor [Brilinta] mg 06/07/20 06/07/20 History Exam Narrative Exam Narrative: Obese male sitting up in bed in semifowler position in no acute distress. HEENT is remarkable for scarred left cornea. Right pupils equally round and reactive. Fundi without papilledema. Oropharynx noninjected no exudate he is edentulous. Neck is supple no JVD no HJR normal carotid pulses no bruits no thyromegaly no cervical lymphadenopathy Lungs with bibasilar rales no rhonchi or wheezes Heart regular rate and rhythm without appreciable murmur rub or gallop. Abdomen is obese soft nontender no bruits no organomegaly no palpable masses Lower extremities without peripheral edema he has normal pedal pulses. Neuro exam grossly intact nonfocal. Genitalia rectal exam deferred Results Imaging Chest x-ray: report reviewed and image reviewed EKG: image reviewed Labs Result diagrams: 06/07/20 16:57 06/07/20 16:57 Labs: Laboratory Results - last 24 hr 06/07/20 06/07/20 06/07/20 16:57 16:57 16:57 WBC 5.89 RBC 5.15 Hgb 14.6 Hct 44.8 MCV 87.0 MCH 28.3 MCHC 32.6 RDW 13.5 Plt Count 251 MPV 9.8 Immature Gran % 0.2 Neutrophils % 56.8 Lymphocytes % 30.4 Monocytes % 7.5 Eosinophils % 4.6 Basophils % 0.5 Nucleated RBC % 0 Absolute Neutrophils 3.35 Absolute Lymphocytes 1.79 Absolute Monocytes 0.44 Absolute Eosinophils 0.27 Absolute Basophils 0.03 PT 9.8 INR 1.0 APTT Sodium 137 Potassium 4.0 Chloride 101 Carbon Dioxide 26.3 Anion Gap 9.7 BUN 22 H Creatinine 1.1 Estimated GFR/1.73 m2 >= 60.00 Glucose 127 H Calcium 9.1 Magnesium 2.3 Total Bilirubin 0.6 AST 19 ALT 45 Alkaline Phosphatase 70 Troponin I 0.10 H* Total Protein 7.8 Albumin 4.2 COVID-19 Source 06/07/20 06/07/20 06/07/20 16:57 18:50 19:45 WBC RBC Hgb Hct MCV MCH MCHC RDW Plt Count MPV Immature Gran % Neutrophils % Lymphocytes % Monocytes % Eosinophils % Basophils % Nucleated RBC % Absolute Neutrophils Absolute Lymphocytes Absolute Monocytes Absolute Eosinophils Absolute Basophils PT INR APTT 23.6 Sodium Potassium Chloride Carbon Dioxide Anion Gap BUN Creatinine Estimated GFR/1.73 m2 Glucose Calcium Magnesium Total Bilirubin AST ALT Alkaline Phosphatase Troponin I 0.12 H* Total Protein Albumin COVID-19 Source Nasopharyx Last Vital Signs Temp 36.5 C 06/07/20 20:43 Pulse 56 L 06/07/20 20:43 Resp 20 06/07/20 20:43 BP 143/74 H 06/07/20 20:43 Pulse Ox 95 06/07/20 20:43 COVID-19 Screening Have you, or household traveled for leisure in last 14 days?: No Had IN PERSON contact w/suspected or confirmed C-19 person: No
[2020-06-07 21:44] LABS: COVID-19 PCR Negative (Negative)
[2020-06-07] MEDS: Insulin Aspart 300 UNITS/3 ML PEN SC (22:18)
[2020-06-07 23:23] LABS: Troponin I 0.11 ng/mL (<0.06)
[2020-06-08] VITALS (21 sets, daily range): BP systolic 105–134; BP diastolic 62–82; PULSE 54–75; RESP 11–22; TEMP 36.2–36.5; O2SAT 93–98
[2020-06-08 01:54] LABS: NT-proBNP 126 pg/mL (<300)
[2020-06-08] MEDS: Acetaminophen 325 MG TAB PO ×2 (02:19→11:40)
[2020-06-08] MEDS: nitroGLYcerin 2% 1 INCH/1 GM PKT 0.5 GM TP ×2 (06:00→12:08)
[2020-06-08] MEDS: Budesonide/Formoterol 160/4.5 6 GM 60 PUFF INH IH (07:43)
--- NOTE | 2020-06-08 07:50 | RESPIRATORY ---
Addendum entered by aYnni Sevilla 06/08/20 14:44: RT called patients DME of [facility] to find out setting for device: Patient has a DreamStation with Auto-titrating CPAP min 6/max 16 on RA and wears a full face mask size Medium. Original Note: RT spoke with patient concerning his history of ARMANDO listed in his medical records. Pt stated he does have a machine to use at night but hasn't been because it feels like its suffocating him when he sleeps. He stated he has a history of claustrophomia and feels like he can't breathe with the full face mask on. RT informed Patient to contact the DME to see if maybe they can do something different concerning different type of full face mask. He mentioned he doesn't know the settings of his current device but may bring in to take to [facility] so they can work with him concerning the mask. Patient was instructed to bring in his home unit the next time he's admitted into the hospital so he can use his own personal unit.
[2020-06-08] MEDS: Metoprolol CR 25 MG TABCR PO (08:26)
[2020-06-08] MEDS: Aspirin E.C. 81 MG TABEC PO (08:26)
[2020-06-08] MEDS: Ticagrelor 90 MG TAB PO (08:26)
[2020-06-08 08:28] LABS: PTT Activated 54.3 sec (21.0-27.5)
[2020-06-08] MEDS: Normal Saline 1,000 ML 50 ML IV (09:52)
[2020-06-08] MEDS: Normal Saline Flush 10 ML SYR IVP (10:40)
--- NOTE | 2020-06-08 14:42 | DSE_ITS ---
Date of service: 06/08/20 Time of Service: 14:43 DS: Diagnosis Discharge Diagnosis (1) Acute coronary syndrome with high troponin: Status: Acute (2) CAD (coronary artery disease): Status: Chronic (3) Hypertension: Status: Chronic (4) Type 2 diabetes mellitus: Status: Chronic (5) Hyperlipidemia: Status: Chronic Discharge Plan Disposition Patient Disposition: [facility] Condition: Stable Discharge Details Reason For Visit: ACUTE CORONARY SYNDROME Admit Date/Time: 06/07/20 19:47 Admit Provider: Sinan Moreira Attending Provider: Sinan Moreira Primary Care Provider: Tatyana Pugh Hospital Course Hospital Course: 64-year-old male non-smoker with history of diabetes mellitus type 2, essential hypertension, coronary artery disease who is status post drug-eluting stent to first diagonal as well as the ostium of his RCA in 2016 who recently underwent stress MPI and was found to have ischemia in his RCA territory subsequently underwent cardiac catheterization found to have 75% in-stent restenosis of his ostial RCA stent with patent diagonal stent. He underwent cardiac catheterization June 05, 2020 which she had laser atherectomy without complications. Since that time patient's been experiencing exertional dyspnea and right-sided sharp chest pains with exertion and alleviated with rest. Symptoms have been waxing and waning throughout the day with activity but relieved w/ rest. 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 Upon arrival to emergency department he was found to have EKG was sinus rhythm with right bundle branch block but no acute ischemic ST or T wave changes. Initial troponin 0.1 0 repeat at 3 hours after admission was 0.12. Chest pain was alleviated by 2 sublingual nitroglycerin tablets and was put on nitroglycerin paste. CHAVA Costa in the emergency department at [facility] contacted [facility] sustainable development policy analyst elementary instructional coach and spoke with the design inserter Dr.Rajan Torres, who indicated that the patient's troponin may be residual from the PCI procedure on Friday or the patient may have sustained an NSTEMI today and he recommended hospitalization at [facility] and initiation of heparin. Patient's been compliant with his dual platelet anti-platlet therapy including Brilinta and aspirin. [facility] do not have any beds available initially but indicated that they would take him the following day and this did occur. Patient is now admitted to intensive care unit on nitroglycerin paste on a heparin drip along his continue beta-blockers and dual antiplatelet therapy and atorvastatin. Dr. Torres recommended exercising caution with use of nitrates because of the patient's area of his stent could involve his RV and if he sustains an RV infarct he may become preload dependent and developed hypotension. Upon admission he was pain-free. Subsequent troponins were 0.11 and 0.10. Transferring to [facility] for further evaluation. Home Meds and New Rx's Prescriptions: New atorvastatin [Lipitor] 40 mg Tablet 40 mg PO QPM Qty: 0 RF: 0 heparin (porcine) in 5 % dex 25,000 unit/250 mL(100 unit/mL) Parenteral Solution 25,000 units IV INFUSION Qty: 0 RF: 0 Continued metformin 500 mg tablet 500 mg PO DAILY RF: 0 aspirin [Aspir-81] 81 mg tablet,delayed release (DR/EC) 81 mg PO DAILY RF: 0 citalopram 20 mg tablet 20 mg PO DAILY RF: 0 omeprazole 20 mg capsule,delayed release(DR/EC) 20 mg PO DAILY RF: 0 metoprolol succinate 25 mg tablet extended release 24 hr 25 mg PO DAILY RF: 0 loratadine 10 mg capsule 10 mg PO DAILY RF: 0 Jardiance 10 mg tablet 10 mg PO DAILY RF: 0 One Daily Multi-Vit w-Mineral 4.5 mg iron tablet PO DAILY PRNRF: 0 sildenafil [Viagra] 50 mg tablet 50 mg PO DAILY PRNRF: 0 Symbicort 160-4.5 mcg/actuation HFA aerosol inhaler 2 puff IH Q12H RF: 0 lisinopril-hydrochlorothiazide 20-12.5 mg tablet 1 tab PO DAILY RF: 0 furosemide [Lasix] 20 mg tablet 20 mg PO DAILY RF: 0 Brilinta 90 mg tablet RF: 0 ibuprofen 200 mg Tablet 800 mg PO PRN PRNRF: 0 Discontinued atorvastatin [Lipitor] 20 mg tablet 20 mg PO DAILY RF: 0 Discharge Instructions Activity:: bedrest Diet:: NPO Discharge Orders Discharge Orders: Discharge Order (Routine); Ordered 06/08/20 Ordered By: Fabian Vang DS: Summary Time Spent with Patient providing and/or coordinating discharge services: Greater than 30 minutes Status at Discharge Functional status at discharge: bed bound (precautionary) Overall status at discharge: patient is not back to baseline Mental Status: mental status grossly normal Speech and Movement: speech and movement normal Mood: congruent mood Affect: normal affect Exam Const General: cooperative and no acute distress Eyes Sclera: sclerae normal Pupils: PERRL Resp Effort & Inspection: normal respiratory effort Auscultation: clear to auscultation bilaterally Cardio Rate: regular rate Rhythm: regular rhythm Heart Sounds: S1 normal and S2 normal GI Palpation: soft and nontender Extrem General: no pedal edema and no calf tenderness Psych Mental Status: mental status grossly normal Speech and Movement: speech and movement normal Mood: congruent mood Affect: normal affect DS: Data Vitals/I&O Vitals and I&O: Vital Signs Temperature 36.5 C 06/08/20 12:00 Temperature Source Temporal Artery Scan 06/08/20 12:00 Pulse 61 06/08/20 14:07 Pulse 61 06/08/20 14:07 Respiratory Rate 14 06/08/20 14:07 Respiratory Effort 06/08/20 12:00 Respiratory Depth Normal 06/08/20 12:00 Respiratory Pattern Normal 06/08/20 12:00 Blood Pressure 117/74 06/08/20 14:07 Blood Pressure Mean 80 06/08/20 14:07 Blood Pressure Position Sitting 06/08/20 12:00 Pulse Oximetry 96 06/08/20 14:07 Oxygen Delivery Method Room Air 06/08/20 12:00 Oxygen Flow Rate 0 06/08/20 12:00 Pain Level 5 06/08/20 12:00 Comment 06/07/20 17:02 Intake & Output 06/07/20 06/08/20 06/08/20 23:59 11:59 23:59 Intake Total 906.333 / 996.333 768.367 / 768.367 Output Total 550 / 550 475 / 475 Balance 356.333 / 446.333 293.367 / 293.367 Weight 102.6 kg Intake: IV 456.333 / 546.333 768.367 / 768.367 Oral 450 / 450 Output: Urine 550 / 550 475 / 475 Other: Urine Color Yellow Yellow Urine Appearance Clear Clear Urine Odor None None Comment Mixed with loose BM Stool Size Small Stool Characteristics Liquid Brown Voiding Methods Urinal Urinal Data Completed and Pending Labs on day of discharge: Labs from last 24 hours 06/08/20 06/08/20 06/08/20 08:00 06:25 00:24 WBC RBC Hgb Hct MCV MCH MCHC RDW Plt Count MPV Immature Gran % Neutrophils % Lymphocytes % Monocytes % Eosinophils % Basophils % Nucleated RBC % Absolute Neutrophils Absolute Lymphocytes Absolute Monocytes Absolute Eosinophils Absolute Basophils PT INR APTT 54.3 H D 39.0 H D Sodium Potassium Chloride Carbon Dioxide Anion Gap BUN Creatinine Estimated GFR/1.73 m2 Glucose Calcium Magnesium Total Bilirubin AST ALT Alkaline Phosphatase Troponin I 0.10 H* NT-Pro-B Natriuret Pep Total Protein Albumin COVID-19 Source SARS-CoV-2 (PCR) 06/07/20 06/07/20 06/07/20 22:58 19:45 18:50 WBC RBC Hgb Hct MCV MCH MCHC RDW Plt Count MPV Immature Gran % Neutrophils % Lymphocytes % Monocytes % Eosinophils % Basophils % Nucleated RBC % Absolute Neutrophils Absolute Lymphocytes Absolute Monocytes Absolute Eosinophils Absolute Basophils PT INR APTT Sodium Potassium Chloride Carbon Dioxide Anion Gap BUN Creatinine Estimated GFR/1.73 m2 Glucose Calcium Magnesium Total Bilirubin AST ALT Alkaline Phosphatase Troponin I 0.11 H* 0.12 H* NT-Pro-B Natriuret Pep 126 Total Protein Albumin COVID-19 Source Nasopharyx SARS-CoV-2 (PCR) Negative 06/07/20 06/07/20 06/07/20 16:57 16:57 16:57 WBC 5.89 RBC 5.15 Hgb 14.6 Hct 44.8 MCV 87.0 MCH 28.3 MCHC 32.6 RDW 13.5 Plt Count 251 MPV 9.8 Immature Gran % 0.2 Neutrophils % 56.8 Lymphocytes % 30.4 Monocytes % 7.5 Eosinophils % 4.6 Basophils % 0.5 Nucleated RBC % 0 Absolute Neutrophils 3.35 Absolute Lymphocytes 1.79 Absolute Monocytes 0.44 Absolute Eosinophils 0.27 Absolute Basophils 0.03 PT INR APTT 23.6 Sodium 137 Potassium 4.0 Chloride 101 Carbon Dioxide 26.3 Anion Gap 9.7 BUN 22 H Creatinine 1.1 Estimated GFR/1.73 m2 >= 60.00 Glucose 127 H Calcium 9.1 Magnesium 2.3 Total Bilirubin 0.6 AST 19 ALT 45 Alkaline Phosphatase 70 Troponin I 0.10 H* NT-Pro-B Natriuret Pep Total Protein 7.8 Albumin 4.2 COVID-19 Source SARS-CoV-2 (PCR) 06/07/20 16:57 WBC RBC Hgb Hct MCV MCH MCHC RDW Plt Count MPV Immature Gran % Neutrophils % Lymphocytes % Monocytes % Eosinophils % Basophils % Nucleated RBC % Absolute Neutrophils Absolute Lymphocytes Absolute Monocytes Absolute Eosinophils Absolute Basophils PT 9.8 INR 1.0 APTT Sodium Potassium Chloride Carbon Dioxide Anion Gap BUN Creatinine Estimated GFR/1.73 m2 Glucose Calcium Magnesium Total Bilirubin AST ALT Alkaline Phosphatase Troponin I NT-Pro-B Natriuret Pep Total Protein Albumin COVID-19 Source SARS-CoV-2 (PCR) [facility] Medical History Balance problems CAD (coronary artery disease) Chest pain Chronic cough Chronic low back pain Depression Diverticulosis Dyslipidemia GERD (gastroesophageal reflux disease) History of non-insulin dependent diabetes mellitus Hypertension Positive cardiac stress test (~2015) PVD (peripheral vascular disease) Surgical History Bone spur of foot Excision Hx of heart artery stent SYLVESTER to D1 and RCA Hx of inguinal hernia repair Hx of umbilical hernia repair S/P colonoscopy done 10/06/18 Social History Smoking/Tobacco Use Status: Never Smoking risk assessment performed?: Yes Alcohol Intake: never Drug use: Never Substance use type: does not use What type of physical activity do you participate in: none Do you feel safe at home: Yes Do you feel safe in your relationship?: Yes
== END 2020-06-08 15:32 | disposition short-term general hospital (02) | DRG 311 ==
LOC: ER 19:47 → ICU 20:36
PROVIDERS: Admitting Provider Internal Medicine; Emergency Provider Registered Nurse Emergency; PCP Nurse Practitioner; Visit Provider Internal Medicine
DX: I24.9 Acute ischemic heart disease, unspecified (principal); I25.110 Atherosclerotic heart disease of native coronary artery with unstable angina pectoris; E78.5 Hyperlipidemia, unspecified; E11.42 Type 2 diabetes mellitus with diabetic polyneuropathy; Z95.5 Presence of coronary angioplasty implant and graft; I45.10 Unspecified right bundle-branch block; Z79.84 Long term (current) use of oral hypoglycemic drugs; G89.29 Other chronic pain; M54.5 Low back pain; F32.9 Major depressive disorder, single episode, unspecified; I10 Essential (primary) hypertension; I73.9 Peripheral vascular disease, unspecified
CPT/HCPCS: 36415; 80053; 87635; 93005; 94640; 96361; 96365; 96376; 99223; 99239; 99285; 71046; 83735; 83880; 84484; 85025; 85610; 85730; 93010; J3490

== ENCOUNTER 2020-06-26 14:53 | Outpatient (RCR) | payer OTHER, MEDICAID, SELFPAY ==
--- OUTSIDE RECORDS SUMMARY | 2020-06-30 14:47 | XMS_ITS ---
:1955 Author Care Team Providers Name Role Phone MICHAEL LAND Primary Care Provider [phone] Allergies Code Code System Name Reaction Severity Status Onset Seasonale (91) ? ? Active ? Medications Name Status Start Date Stop Date ? ? atorvastatin 20 mg tablet Active ? Not av ailable Take 1 tablet every day by oral route. calcium Active ? Not available citalopram 20 mg tablet Active ? Not avai lable Take 1 tablet every day by oral route. Flonase Allergy Relief Active ? Not avail able furosemide 20 mg tablet Active ? Not avai lable Take 1 tablet every day by oral route. Jardiance 10 mg tablet Active ? Not avail able Take 1 tablet every day by oral route. lisinopril 20 mg-hydrochlorothiazide 12.5 mg tablet Active ? Not available Take 1 tablet every day by oral route. loratadine 10 mg capsule Active ? Not francis ilable Take by oral route. Low Dose Aspirin 81 mg tablet,delayed release Active ? Not available Take 1 tablet every day by oral route. metformin 500 mg tablet Active ? Not avai lable Take 1 tablet twice a day by oral route. metoprolol succ 25 mg-hydrochlorothiazide 12.5 mg tablet,ext.rel 24 hr Active ? Not available Take 1 tablet every day by oral route. multivitamin Active ? Not available omeprazole 20 mg capsule,delayed release Active ? Not available Take 1 capsule every day by oral route. Proair Digihaler 90 mcg/actuation aerosol powder breath act, sen sor Active ? Not available Inhale 2 puffs every 4 hours by inhalation route. sildenafil 100 mg tablet Active ? Not francis ilable Take 1 tablet every day by oral route. Symbicort 160 mcg-4.5 mcg/actuation HFA aerosol inhaler Active ? Not available Inhale 2 puffs twice a day by inhalation route. zolpidem 5 mg tablet Completed ? 01/25/2020 take 1-2 PO night of sleep study if needed Problems Name Status Onset Date Source ? 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 Type 2 Diabetes Mellitus Active 11/18/2019 ? Dyslipidemia Active 11/18/2019 ? Impotence Active 11/18/2019 ? Depressive Disorder Active 11/18/2019 ? Hypertensive Disorder Active 11/18/2019 ? Coronary Arteriosclerosis Active 11/18/2019 ? Peripheral Vascular Disease Active 11/18/2019 ? Gastroesophageal Reflux Disease Active 11/18/2019 ? Low Back Pain Active 11/18/2019 ? Coordination Problem Active 11/18/2019 ? Cough Active 11/18/2019 ? At Risk of Apnea Active 11/18/2019 ? Snoring Active 11/24/2019 ? Obstructive Sleep Apnea Syndrome Active 01/21/2020 ? Procedures Date Name Performed by ? 11/25/2019 Polysomnogram Information not avai lable Results Lab Results None recorded. Past Encounters 04/04/2020 Obstructive Sleep Apnea Syndrome [facility] [employer]: [address] [place] [phone], Ph. 01/25/2020 Obstructive Sleep Apnea Syndrome [facility] [employer]: [address] [place] [phone], Ph. 11/25/2019 Snoring; Sleeptalking [facility] [employer]: [address] [place] [phone], Ph. Social History Tobacco Smoking Status Never Smoker Vaccine List None recorded. Plan of Care Reminders Provider Appointments None ? ? recorded. Lab None ? ? recorded. Referral None ? ? recorded. Procedures None ? ? recorded. Surgeries None ? ? recorded. Imaging None ? ? recorded. Vitals 04/04/2020 01:30PM Office 30 Height Weight BMI 172.72 cm 99.79 kg 33.5 kg/m2 01/25/2020 09:45AM Office 30 Height Weight BMI 172.72 cm 99.79 kg 33.5 kg/m2 11/25/2019 10:00AM Office 30 Height Weight BMI Blood Pressure 172.72 cm 106.59 kg 35.7 kg/m2 126/82 mm[Hg]
--- OUTSIDE RECORDS SUMMARY | 2020-06-30 14:48 | XMS_ITS | Encounter Summary ---
:1955 Author Care Team Providers Name Role Phone Tatyana Pugh Primary Care Provider [phone] Reason for Visit Telehealth visit - Patient at home Assessment and Plan Assessment Note This visit was performed virtually using synchronous audio-visual connection via Zoom. As such, the physical examination is necessarily limited. The risks and benefits of the use of this alternative platform were discussed with the parent and verbal consent was obtained. My assessme nt and plans are based on such examination. Further evaluation, including in-person examination, may be needed depending on the response to management or today's recomm endation. 1. Obstructive sleep apnea syndr ome Mild ARMANDO with a RDI of 9.4/hr. I ordered CPAP 6-16cm last visit but he still has not received this because of an insurance issue that has since been resolved. He does not have any teeth so an oral appliance is not an option. He stil l has symptoms of loud snoring, daytime sleepiness (ESS 13), nocturnal gasping, sleep fragmentation, morning headaches, night sweats, nocturnal heartburn and noct uria. I reordered CPAP and reminded him of insurance compliance requirements. I will see him back in about two months. He is asked to call the clinic for any sleep related questions or concerns. I provided greater than 15 minutes in [facility] care of this patient, more than half the time was spent in [id number] counseling. ? CPAP machine Discussion Note: None recorded.Patient educational handouts: No information available. Plan of Care Reminders Provider Appointments None ? ? recorded. Lab None ? ? recorded. Referral None ? ? recorded. Procedures None ? ? recorded. Surgeries None ? ? recorded. Imaging None ? ? recorded. Medications Name Start Date ? ? atorvastatin 20 mg tablet ? Take 1 tablet every day by oral route. calcium ? citalopram 20 mg tablet ? Take 1 tablet every day by oral route. Flonase Allergy Relief ? furosemide 20 mg tablet ? Take 1 tablet every day by oral route. Jardiance 10 mg tablet ? Take 1 tablet every day by oral route. lisinopril 20 mg-hydrochlorothiazide 12.5 mg tablet ? Take 1 tablet every day by oral route. loratadine 10 mg capsule ? Take by oral route. Low Dose Aspirin 81 mg tablet,delayed release ? Take 1 tablet every day by oral route. metformin 500 mg tablet ? Take 1 tablet twice a day by oral route. metoprolol succ 25 mg-hydrochlorothiazide 12.5 mg tabl et,ext.rel 24 hr ? Take 1 tablet every day by oral route. multivitamin ? omeprazole 20 mg capsule,delayed release ? Take 1 capsule every day by oral route. Proair Digihaler 90 mcg/actuation aerosol powder breat h act, sensor ? Inhale 2 puffs every 4 hours by inhalation route. sildenafil 100 mg tablet ? Take 1 tablet every day by oral route. Symbicort 160 mcg-4.5 mcg/actuation HFA aerosol inhale r ? Inhale 2 puffs twice a day by inhalation route. Medications Administered None recorded. Vitals Height Weight BMI 5 ft 8 in 220 lbs 33.5 kg/m2 Results Lab Results None recorded. Allergies Code Code System Name Reaction Severity Onset Seasonale () ? ? ? Problems Name Status Onset Date Source ? [...] Sleep Apnea Syndrome Active 01/21/2020 ? Procedures None recorded. Vaccine List None recorded. Social History Tobacco Smoking Status Never Smoker Alcohol intake None Live alone or with others? with others Animal exposure? Y Notes: DOG, CAT Are you currently employed? N Blind or serious difficulty seeing Y Not es: GLASSES BLIND IN LEFT EYE Hard of hearing or deaf in one or N both ears? Caffeine intake Occasional Notes: 4 CUPS COF FEE THROUGHOUT DAYiced tea in the s ummer Drug Use N Functional Status Blind or serious Yes difficulty seeing? Past Encounters 04/04/2020 Obstructive Sleep Apnea Syndrome [facility] Xiao, [employer]: [address] [place] [address] [address], [place] [phone], Ph. History of Present Illness Note: <p>Maurilio Cain has a Zoom visit for ARMANDO follow-up. He has given consent to have a telehealth visit. Patient is at home, provider is in the office</p><p>
</p><p>Maurilio was seen by me on 01/25/20. He has a medical history to include CAD (s/p stents), HTN, DM, GERD, PVD, depression, chronic cough, ED, lipoma and obesity. Labs 11/15/19 A1C 6.5%, 05/04/19 BMP and liver panel wnl, 04/03/18 CBC and TSH unremarkable. He noted symptoms of loud snoring, daytime sleepiness (ESS 13), nocturnal gasping, sleep fragmentation, morning headaches, night sweats, nocturnal heartburn and nocturia.</p><p>Polysomnogram was completed on {{DATE 01/14/2020}} (BMI 35.73). Sleep efficiency was {{69# 80}}%, AHI {{2.5# NUMBER}}/hr, RDI {{9.4# NUMBER}}/hr, REM AHI {{10.6# NUMBER}}/hr, REM RDI {{20# NUMBER}}/hr, supine AHI {{5# NUMBER}}/hr, right lateral AHI {{0# NUMBER}}/hr,left lateral AHI {{0# NUMBER}}/hr, sp02 brittany {{86# NUMBER}}%, {{0# NUMBER}} minutes were spent at asaturation <88%, arousal index {{16# NUMBER}}/hr, PLMi {{15.6# NUMBER}}/hr, PLM arousal index{{1.8# NUMBER}}/hr. EKG showed {{NSR*}}. Mild to moderate snoring heard. Poor sleep reported secondary to back pain. Last visit I ordered CPAP 6-16 cm.</p><p>
</p><p>Wilmar michelle tells me he was never set up with CPAP. Apparently when [facility] received the order they closed it out without notifying us because they did not accept his secondary insurance (this was verified by Farhana yesterday).</p><p>
</p>Review of Systems: ROS as noted in the HPI Review of Systems None recorded. Physical Exam ? Notes: <p>N/A</p>
== END 2020-07-21 23:59 | disposition home or self-care (01) ==
LOC: CR 14:53
PROVIDERS: PCP Nurse Practitioner; Visit Provider Family Medicine
DX: I25.2 Old myocardial infarction (principal); Z51.89 Encounter for other specified aftercare; Z95.5 Presence of coronary angioplasty implant and graft
CPT/HCPCS: S9472

== ENCOUNTER → 2020-06-30 10:17 | Outpatient (BNVA) | payer OTHER, MEDICAID, SELFPAY | PROVIDERS: PCP Nurse Practitioner; Referring Provider Nurse Practitioner; Visit Provider Internal Medicine Cardiovascular Disease | DX: I25.110 Atherosclerotic heart disease of native coronary artery with unstable angina pectoris (principal); R07.9 Chest pain, unspecified; I10 Essential (primary) hypertension; E11.42 Type 2 diabetes mellitus with diabetic polyneuropathy; E78.5 Hyperlipidemia, unspecified | CPT/HCPCS: 99214 ==

== ENCOUNTER 2020-07-12 14:58 | Outpatient (RCR) | payer OTHER, MEDICAID, SELFPAY | END 2020-07-21 23:59 | disposition home or self-care (01) | LOC: CR 14:58 | PROVIDERS: PCP Nurse Practitioner; Visit Provider Family Medicine | DX: I25.2 Old myocardial infarction (principal); Z51.89 Encounter for other specified aftercare; Z95.5 Presence of coronary angioplasty implant and graft ==

== ENCOUNTER → 2020-12-28 10:42 | Outpatient (BNVA) | payer OTHER, MEDICAID, SELFPAY | PROVIDERS: PCP Nurse Practitioner; Referring Provider Nurse Practitioner; Visit Provider Internal Medicine Cardiovascular Disease | DX: I25.110 Atherosclerotic heart disease of native coronary artery with unstable angina pectoris (principal); I10 Essential (primary) hypertension; E78.5 Hyperlipidemia, unspecified; Z95.818 Presence of other cardiac implants and grafts | CPT/HCPCS: 99214; 99213 ==

== ENCOUNTER 2021-03-14 17:32 | Inpatient (IN) | payer OTHER, MEDICAID, SELFPAY ==
[2021-03-14] VITALS (73 sets, daily range): BP systolic 95–126; BP diastolic 56–92; PULSE 50–74; RESP 7–26; TEMP 36.6; O2SAT 88–99
--- NOTE | 2021-03-14 17:30 | RT.EKG_ITS ---
APPROVED REPORT Exam: Resting ECG Reason for Exam: SOB Patient Location: E HR:68 bpm ECG Measurements Heart Rate 68 AXIS [place] 156 P 33 QRSd 132 QRS -37 QT 441 T 19 QTc 471 Conclusion Sinus rhythm...normal P axis, V-rate 60- 99 Right bundle branch block...QRSd>120, terminal axis(90,270)
--- NOTE | 2021-03-14 17:45 | DI.RAD_ITS ---
Exam(s) XR PORTABLE CHEST AP EXAM: XR PORTABLE CHEST AP CLINICAL HISTORY: chest pain TECHNIQUE: 2D digital imaging was performed. COMPARISON: CR,XR XR CHEST 2V PA LATERAL from 06/07/2020 FINDINGS: LUNGS: Emphysematous and fibrotic changes, otherwise clear. No pleural abnormality seen. HEART: Normal. MEDIASTINUM: Normal. BONES: Unremarkable. IMPRESSION: No acute pulmonary findings. DATA REPOSITORY: RADIATION DOSE DELIVERED:
--- NOTE | 2021-03-14 18:05 | W.ED.GENAD ---
Discharge Plan Disposition Patient Disposition: [facility] INPATIENT Condition: Critical Discharge Details Chief Complaint: Chest Pain Clinical Impression: Chest pain Primary Care Provider: Lamberto Briceño ED Provider: Angus Hernandez Home Meds and New Rx's Prescriptions: No Action metformin 500 mg tablet 500 mg PO DAILY RF: 0 aspirin [Aspir-81] 81 mg tablet,delayed release (DR/EC) 81 mg PO DAILY RF: 0 citalopram 20 mg tablet 20 mg PO DAILY RF: 0 omeprazole 20 mg capsule,delayed release(DR/EC) 20 mg PO DAILY RF: 0 metoprolol succinate 25 mg tablet extended release 24 hr 25 mg PO DAILY RF: 0 loratadine 10 mg capsule 10 mg PO DAILY RF: 0 Jardiance 10 mg tablet 15 mg PO DAILY RF: 0 One Daily Multi-Vit w-Mineral 4.5 mg iron tablet 1 mg PO DAILY PRNRF: 0 lisinopril-hydrochlorothiazide 20-12.5 mg tablet 1 tab PO DAILY RF: 0 furosemide [Lasix] 20 mg tablet 20 mg PO DAILY RF: 0 sildenafil [Viagra] 50 mg tablet 100 mg PO DAILY PRNRF: 0 nitroglycerin 0.4 mg tablet, sublingual 0.4 mg sublingual ONCE RF: 0 fluticasone propionate [Flonase Allergy Relief] 50 mcg/actuation spray,suspension 1 spray intranasal BID RF: 0 budesonide-formoterol [Symbicort] 160-4.5 mcg/actuation HFA aerosol inhaler 2 puff inhalation BID RF: 0 atorvastatin [Lipitor] 40 mg Tablet 40 mg PO QPM Qty: 0 RF: 0 Brilinta 90 mg tablet 90 mg PO BID RF: 0 ibuprofen 200 mg Tablet 800 mg PO PRN PRNRF: 0 Medical Decision Making 1809??65-year-old male with history of coronary artery disease, status post 2 stents, on aspirin and Brilinta, hypertension, diabetes, hyperlipidemia, here with substernal chest pain that was initially intermittent yesterday and worse and more persistent today. Pain did initially respond to nitroglycerin sublingual x2 but has returned. Patient does have dyspnea on exertion and trace bilateral pitting edema. No calf tenderness. Screening EKG was reviewed and interpreted by me: No STEMI, please see report, right bundle branch block is present. I am concerned about ACS. I will check troponin. Consider CHF given dyspnea on exertion and edema bilaterally. I will check BNP. -- Labs reviewed: Initial troponin negative. BNP is normal. Chest x-ray was reviewed and interpreted by radiology: Chronic interstitial opacities. Patient was reassessed and chest pain resolved on nitroglycerin infusion. His blood pressure has decreased. I will attempt to titrate down nitro drip. We will also give heparin bolus and infusion. I called and spoke with Dr. Noel, on-call hospitalist, discussed ED presentation and course - he will admit the patient and request bridging orders placed to the ICU. Lab Data Lab results reviewed: Yes I reviewed the patient's lab results. Labs: Laboratory Tests Range/Units 03/14/21 03/14/21 03/14/21 17:57 17:57 17:57 WBC (4.4-10.8) 10^3/uL 5.67 RBC (4.36-5.78) 10^6/uL 4.69 Hgb (13.5-17.5) g/dL 12.9 L Hct (40.0-50.0) % 41.4 MCV (80-95) fL 88.3 MCH (27.0-33.0) pg 27.5 MCHC (32.0-36.0) % 31.2 L RDW (11.8-14.1) % 13.5 Plt Count (130-400) 10^3/uL 260 MPV (8.0-11.0) fL 9.5 Immature Gran % 0.2 Neutrophils % 56.9 Lymphocytes % 29.5 Monocytes % 7.9 Eosinophils % 4.6 Basophils % 0.9 Nucleated RBC % % 0 Absolute Neutrophils (1.2-6.7) 10^3/uL 3.23 Absolute Lymphocytes (1.2-3.4) 10^3/uL 1.67 Absolute Monocytes (0.1-0.8) 10^3/uL 0.45 Absolute Eosinophils (0.0-0.7) 10^3/uL 0.26 Absolute Basophils (0.0-0.2) 10^3/uL 0.05 APTT (21.0-27.5) sec 22.7 D-Dimer (<500) ng/mlFEU Sodium (136-145) mmol/L 139 Potassium (3.5-5.1) mmol/L 3.6 Chloride (98-107) mmol/L 104 Carbon Dioxide (21.0-32.0) mmol/L 27.3 Anion Gap (3-11) mmol/L 7.7 BUN (7-18) mg/dL 20 H Creatinine (0.70-1.30) mg/dL 1.3 Estimated GFR/1.73 m2 (mL/min/1.73m2) 55.58 Glucose (74-106) mg/dL 166 H Calcium (8.5-10.1) mg/dL 8.8 Total Bilirubin (0.2-1.0) mg/dL 0.5 AST (15-37) U/L 19 ALT (16-63) U/L 31 Alkaline Phosphatase (46-116) U/L 79 Troponin I (<or=60) ng/L < 50 Total Protein (6.4-8.2) g/dL 7.4 Albumin (3.4-5.0) g/dL 3.9 COVID-19 Source Range/Units 03/14/21 03/14/21 17:57 18:20 WBC (4.4-10.8) 10^3/uL RBC (4.36-5.78) 10^6/uL Hgb (13.5-17.5) g/dL Hct (40.0-50.0) % MCV (80-95) fL MCH (27.0-33.0) pg MCHC (32.0-36.0) % RDW (11.8-14.1) % Plt Count (130-400) 10^3/uL MPV (8.0-11.0) fL Immature Gran % Neutrophils % Lymphocytes % Monocytes % Eosinophils % Basophils % Nucleated RBC % % Absolute Neutrophils (1.2-6.7) 10^3/uL Absolute Lymphocytes (1.2-3.4) 10^3/uL Absolute Monocytes (0.1-0.8) 10^3/uL Absolute Eosinophils (0.0-0.7) 10^3/uL Absolute Basophils (0.0-0.2) 10^3/uL APTT (21.0-27.5) sec D-Dimer (<500) ng/mlFEU 430 Sodium (136-145) mmol/L Potassium (3.5-5.1) mmol/L Chloride (98-107) mmol/L Carbon Dioxide (21.0-32.0) mmol/L Anion Gap (3-11) mmol/L BUN (7-18) mg/dL Creatinine (0.70-1.30) mg/dL Estimated GFR/1.73 m2 (mL/min/1.73m2) Glucose (74-106) mg/dL Calcium (8.5-10.1) mg/dL Total Bilirubin (0.2-1.0) mg/dL AST (15-37) U/L ALT (16-63) U/L Alkaline Phosphatase (46-116) U/L Troponin I (<or=60) ng/L Total Protein (6.4-8.2) g/dL Albumin (3.4-5.0) g/dL COVID-19 Source Nasal/Nares HPI General Mode of arrival: ambulatory. Date/Time Provider Initiated Documentation: 03/14/21 17:43. Limitations to Documentation: no limitations. Information obtained by: patient. HPI Narrative: 55-year-old male with multiple local problems including history of coronary artery disease status post 2 stents, pulmonary emphysema, hypertension, diabetes, hyperlipidemia, COPD, here with chief complaint of chest pain. Patient notes that chest pain started yesterday and was initially intermittent and moderate worse with exertion. Today pain is been more persistent and severe occurring at rest. He notes that he took 2 nitroglycerin this afternoon around 4 PM which did help his pain it quickly returned. He has associated diaphoresis. No associated nausea or vomiting. He does note some dyspnea on exertion. No leg swelling or calf pain Related Data Home Medications Medication Instructions Recorded Confirmed aspirin 81 mg tablet,delayed 81 mg PO DAILY 04/03/18 03/14/21 release citalopram 20 mg tablet 20 mg PO DAILY 04/03/18 03/14/21 loratadine 10 mg capsule 10 mg PO DAILY 04/03/18 03/14/21 metformin 500 mg tablet 500 mg PO DAILY tab 04/03/18 03/14/21 metoprolol succinate 25 mg 25 mg PO DAILY 04/03/18 03/14/21 tablet,extended release 24 hr omeprazole 20 mg capsule,delayed 20 mg PO DAILY 04/03/18 03/14/21 release furosemide 20 mg tablet 20 mg PO DAILY 09/01/18 03/14/21 lisinopril 20 1 tab PO DAILY 09/01/18 03/14/21 mg-hydrochlorothiazide 12.5 mg tablet multivitamin with minerals-ferrous 1 mg PO DAILY PRN tab 09/01/18 03/14/21 sulfate 4.5 mg iron tablet ibuprofen 800 mg PO PRN PRN 10/06/18 03/14/21 atorvastatin [Lipitor] 40 mg PO QPM #0 tab 06/08/20 03/14/21 empagliflozin 10 mg tablet 15 mg PO DAILY tab 06/30/20 03/14/21 sildenafil 50 mg tablet 100 mg PO DAILY PRN tab 06/30/20 03/14/21 ticagrelor 90 mg tablet 90 mg PO BID tab 06/30/20 03/14/21 budesonide-formoterol HFA 160 2 puff INHALATION BID 03/05/21 03/14/21 mcg-4.5 mcg/actuation aerosol inhaler fluticasone propionate 50 1 spray INTRANASAL BID 03/05/21 03/14/21 mcg/actuation nasal spray,suspension nitroglycerin 0.4 mg sublingual 0.4 mg SUBLINGUAL ONCE 03/05/21 03/14/21 tablet Previous Rx's Medication Instructions Recorded atorvastatin [Lipitor] 40 mg PO QPM #0 tab 06/08/20 Allergies Allergy/AdvReac Type Severity Reaction Status Date / Time No Known Allergies Allergy Verified 03/14/21 17:44 General Stated Complaint: Chest Pain EMILIANO: 2 Review of Systems All systems reviewed & are unremarkable except as noted in HPI and below Constitutional Constitutional: Denies fever(s) Cardiovascular Cardiovascular: Reports as per HPI Respiratory Respiratory: Reports as per HPI PFSH All Active Problems (Updated 03/14/21 @ 20:14 by Angus Hernandez MD) Chest pain (Acute) NSTEMI (non-ST elevated myocardial infarction) (Acute) Pulmonary emphysema (Acute) Astigmatism with presbyopia (Acute) Cataract (Chronic) Glaucoma (Chronic) Lipoma (Acute) ED (erectile dysfunction) (Acute) Physical deconditioning (Acute) Uvular hypertrophy (Acute) Acute coronary syndrome with high troponin (Acute) Chest pain (Acute) Obstructive sleep apnea (Chronic) Uvular edema (Acute) CAD (coronary artery disease) (Chronic) Diverticulosis (Acute) COPD (chronic obstructive pulmonary disease) (Chronic) GERD (gastroesophageal reflux disease) (Chronic) Hypertension (Chronic) Type 2 diabetes mellitus (Chronic) Hyperlipidemia (Chronic) Medical History Balance problems Chest pain Chronic cough Chronic low back pain Depression Dyslipidemia GERD (gastroesophageal reflux disease) H/O coronary angiogram History of non-insulin dependent diabetes mellitus Hypertension Positive cardiac stress test (~2015) PVD (peripheral vascular disease) Surgical History Bone spur of foot Excision Hx of heart artery stent SYLVESTER to D1 and RCA Hx of inguinal hernia repair Hx of umbilical hernia repair S/P colonoscopy done 10/06/18 Family History Mother Skin cancer Diabetes Hyperlipidemia Stroke Father , 83 Diabetes Heart disease Sister No problems noted. Sister , 50 No problems noted. Brother No problems noted. Brother No problems noted. Brother No problems noted. Social History Smoking/Tobacco Use Status: Former Tobacco Use tobacco type: cigarettes Quit Date: 03/24/97 Tobacco: How many years used: 5 Second Hand Exposure: Yes Smoking risk assessment performed?: Yes Alcohol Intake: former Drug use: Never Substance use type: does not use Caregiver/Support person: No Household members: significant other Housing: house Communication Needs: None Do you need help understanding health information?: Often Pets and animals: Yes Pets and animals: dog(s) Sexually active: Yes Do you think of yourself as: lesbian/burton/homosexual Current gender identity: male What is your relationship status?: living with partner How often do you talk on the phone with friends or family?: decline to answer How often do you get together with friends or relatives?: decline to answer How often do you attend bahai or quaker services?: decline to answer Do you belong to any clubs or organized social groups?: no Panel score (0-1 are the most socially isolated patients): 1 What type of physical activity do you participate in: none and walking Duration: 30-45 minutes/day Frequency: 1-2 times per week Franca/Tenriism: Worship Special franca needs: No Seatbelt use: always Helmet use: No Drive intox or ride w/intox 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: No Do you feel safe at home: Yes Do you feel safe in your relationship?: Yes Exam Const General: cooperative and no acute distress HENMT Mouth: moist mucous membranes Eyes Conjunctivae: normal conjunctivae Sclera: normal sclerae Neck Neck: trachea midline and supple Resp Auscultation: clear to auscultation bilaterally, no rales, no rhonchi and no wheezes Cardio Rate: regular rate and not tachycardic Rhythm: regular rhythm GI Palpation: soft, not firm, no guarding, no masses, not rigid and nontender Skin General skin exam: no rashes or lesions noted Neuro General: patient alert, patient awake and tone normal Extrem General: no calf tenderness and pedal edema bilaterally non-pitting and 1+ Psych Appearance: grossly normal Mental Status: mental status grossly normal Speech and Movement: speech and movement normal Course Vital Signs Vital signs: Vital Signs Temperature 36.6 C 03/14/21 17:42 Pulse 72 03/14/21 17:42 Respiratory Rate 14 03/14/21 17:42 Pulse Oximetry 99 03/14/21 17:42 Temperature 36.6 C 03/14/21 17:42 Temperature Source Skin 03/14/21 17:42 Pulse 72 03/14/21 17:42 Respiratory Rate 14 03/14/21 17:42 Respiratory Effort Non-Labored 03/14/21 17:49 Respiratory Depth Normal 03/14/21 17:49 Respiratory Pattern Normal 03/14/21 17:49 Blood Pressure Position Sitting 03/14/21 17:42 Pulse Oximetry 99 03/14/21 17:42 Oxygen Delivery Method Room Air 03/14/21 17:42 Oxygen Flow Rate 0 03/14/21 17:42 Pain Level 7 03/14/21 17:49 Critical Care Time Critical Care Time Critical Care Time: Yes Total Critical Care Time: 45 Attestation: I spent greater than 45 minutes addressing this patient's immediate life threats. Please see MDM section of note. This time was spent engaged in work directly related to the patient's care, exclusive of separate procedures, and failure to initiate these interventions would have likely resulted in clinically significant or life threatening deterioration in the patient's condition.
[2021-03-14] MEDS: nitroGLYcerin in D5W 50 MG/250 ML BTL IV (18:14)
[2021-03-14] MEDS: Normal Saline 250 ML 500 ML IV (18:14)
[2021-03-14 18:24] LABS: PTT Activated 22.7 sec (21.0-27.5)
[2021-03-14 18:24] LABS: Source Nasal/Nares
[2021-03-14 18:25] LABS: Abs Immature Grans 0.01 10^3/uL (0.0-0.06); Absolute Basophil Count 0.05 10^3/uL (0.0-0.2); Absolute Eosinophil Count 0.26 10^3/uL (0.0-0.7); Absolute Lymphocyte Count 1.67 10^3/uL (1.2-3.4); Absolute Monocyte Count 0.45 10^3/uL (0.1-0.8); Absolute Neutrophil Count 3.23 10^3/uL (1.2-6.7); Basophils % 0.9; Eosinophils % 4.6; HCT 41.4 % (40.0-50.0); HGB 12.9 g/dL (13.5-17.5); Immature Grans % 0.2; Lymphocytes % 29.5; MCH 27.5 pg (27.0-33.0); MCHC 31.2 % (32.0-36.0); MCV 88.3 fL (80-95); MPV 9.5 fL (8.0-11.0); Monocytes % 7.9; Neutrophils % 56.9; Nucleated RBC 0 %; Platelet Count 260 10^3/uL (130-400); RBC 4.69 10^6/uL (4.36-5.78); RDW 13.5 % (11.8-14.1); RDW-SD 43.2 fL; WBC 5.67 10^3/uL (4.4-10.8)
[2021-03-14 18:27] LABS: ALT 31 U/L (16-63); AST 19 U/L (15-37); Albumin 3.9 g/dL (3.4-5.0); Alkaline Phosphatase 79 U/L (46-116); Anion Gap 7.7 mmol/L (3-11); BUN 20 mg/dL (7-18); Bilirubin, Total 0.5 mg/dL (0.2-1.0); CO2 27.3 mmol/L (21.0-32.0); CREATININE 1.3 mg/dL (0.70-1.30); Calcium 8.8 mg/dL (8.5-10.1); Chloride 104 mmol/L (98-107); Estimated GFR 55.58 (mL/min/1.73m2); Glucose 166 mg/dL (74-106); Potassium 3.6 mmol/L (3.5-5.1); Sodium 139 mmol/L (136-145); Total Protein 7.4 g/dL (6.4-8.2); Troponin I < 50 ng/L (<or=60)
[2021-03-14 18:46] LABS: D-Dimer 430 ng/mlFEU (<500)
[2021-03-14] MEDS: Acetaminophen 325 MG TAB 650 MG PO (18:49)
--- NOTE | 2021-03-14 19:29 | DI.VRAD_ITS ---
PROCEDURE INFORMATION: Exam: XR Chest Exam date and time: 03/14/2021 5:57 PM Age: 65 years old Clinical indication: Other: Chest pain TECHNIQUE: Imaging protocol: XR of the chest. Views: 1 view. Total images: 1 COMPARISON: CR XR CHEST 2V PA LATERAL 06/07/2020 6:11 PM FINDINGS: Lungs: There are coarse interstitial opacities. No consolidation. Pleural spaces: No pleural effusion. No pneumothorax. Heart/Mediastinum: Heart size is normal for technique. Bones/joints: No acute bone abnormality. IMPRESSION: Chronic interstitial opacities. Dictated and Authenticated by: Berta Murcia MD. Ordering:NAN Greco MD
[2021-03-14 20:21] LABS: COVID-19 PCR Negative (Negative)
--- NOTE | 2021-03-14 20:43 | NUR.NOTE ---
Per Dr. Noel we could discontinue the nitro to see how the patient tolerated. Nursing Note:
--- NOTE | 2021-03-14 20:45 | RT.EKG_ITS ---
APPROVED REPORT Exam: Resting ECG Reason for Exam: repeat 3 hr Patient Location: E HR:54 bpm ECG Measurements Heart Rate 54 AXIS MN 172 P 17 QRSd 139 QRS -34 QT 473 T 5 QTc 448 Conclusion Sinus bradycardia...rate< 60 Right bundle branch block...QRSd>120, terminal axis(90,270) Probable lateral infarct, old...Q>35mS, abnormal ST-T, V5-6 I aVL
--- NOTE | 2021-03-14 20:48 | W.PM.HP.N ---
Date of service: 03/14/21 Time of Service: 20:48 Assessment and Plan Assessment and plan (1) Chest pain: Status: Acute Assessment and plan: I have evaluated him and reviewed his studies. We have stopped his intravenous nitroglycerin at the present time. We will see how he does off the nitroglycerin but we will admit him to the hospital for observation. His second troponin level is pending. I do not see anything acutely abnormal with his electrocardiogram that he does have a home right bundle branch block. History of Present Illness History of Present Illness Chief Complaint: chest pain Narrative: This 65-year-old male is here because of chest discomfort. He has a history of coronary artery disease, diabetes mellitus hypertension COPD. He says he had a stent placed in [place] about 17 years ago. He also says he had a stent placed he thinks in March of this year at [facility]. He says he has intermittent chest pain frequently but is not severe. 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 He says that taking care of her is quite stressful for him. He says he has to take care of all his mother's needs but they do have a geological sample tester that comes in once a week to help clean. Over the last 2 days he has had increased amount of chest discomfort. There is tightness in pressure in the central part of his chest without radiation. Today about 4 PM he developed pain and took 2 nitroglycerin tablets. The pain was relieved but got worse again and he came here to be seen. The pain today was associated with diaphoresis and shortness of breath but no nausea or vomiting. He does not use tobacco and he says he quit drinking alcohol about 22 years ago. He has not been around anyone's been sick. He has had 2 coronavirus vaccine doses but has not had a booster yet. His sugar this morning is 162 and he says his last A1c was about 5.7. He says his sugars go up and down frequently. He was placed on nitroglycerin infusion here. He is currently on nitroglycerin 2.5 mg and this has been reduced from 10 when he first Review of Systems Constitutional Constitutional: Denies chills and Denies fever(s) Cardiovascular Cardiovascular: Reports chest pain, Reports chest pain at rest, Reports diaphoresis, Denies rapid heart rate, Denies palpitations, Reports dyspnea and Denies slow heart rate Respiratory Respiratory: Denies cough, Denies hemoptysis and Reports dyspnea Gastrointestinal Gastrointestinal: Denies constipation, Denies cramping, Denies diarrhea, Denies nausea and Denies vomiting Genitourinary Genitourinary: Denies oliguria and Denies difficulty urinating Endocrine Endocrine: Denies palpitations PFSH All Active Problems (Updated 03/14/21 @ 20:14 by Angus Hernandez MD) Chest pain (Acute) NSTEMI (non-ST elevated myocardial infarction) (Acute) Pulmonary emphysema (Acute) Astigmatism with presbyopia (Acute) Cataract (Chronic) Glaucoma (Chronic) Lipoma (Acute) ED (erectile dysfunction) (Acute) Physical deconditioning (Acute) Uvular hypertrophy (Acute) Acute coronary syndrome with high troponin (Acute) Chest pain (Acute) Obstructive sleep apnea (Chronic) Uvular edema (Acute) CAD (coronary artery disease) (Chronic) Diverticulosis (Acute) COPD (chronic obstructive pulmonary disease) (Chronic) GERD (gastroesophageal reflux disease) (Chronic) Hypertension (Chronic) Type 2 diabetes mellitus (Chronic) Hyperlipidemia (Chronic) Medical History Balance problems Chest pain Chronic cough Chronic low back pain Depression Dyslipidemia GERD (gastroesophageal reflux disease) H/O coronary angiogram History of non-insulin dependent diabetes mellitus Hypertension Positive cardiac stress test (~2015) PVD (peripheral vascular disease) Surgical History Bone spur of foot Excision Hx of heart artery stent SYLVESTER to D1 and RCA Hx of inguinal hernia repair Hx of umbilical hernia repair S/P colonoscopy done 10/06/18 Family History Mother Skin cancer Diabetes Hyperlipidemia Stroke Father , 83 Diabetes Heart disease Sister No problems noted. Sister , 50 No problems noted. Brother No problems noted. Brother No problems noted. Brother No problems noted. Social History Smoking/Tobacco Use Status: Former Tobacco Use tobacco type: cigarettes Quit Date: 03/24/97 Tobacco: How many years used: 5 Second Hand Exposure: Yes Smoking risk assessment performed?: Yes Alcohol Intake: former Drug use: Never Substance use type: does not use Caregiver/Support person: No Household members: significant other Housing: house Communication Needs: None Do you need help understanding health information?: Often Pets and animals: Yes Pets and animals: dog(s) Sexually active: Yes Do you think of yourself as: lesbian/burton/homosexual Current gender identity: male What is your relationship status?: living with partner How often do you talk on the phone with friends or family?: decline to answer How often do you get together with friends or relatives?: decline to answer How often do you attend oriental orthodox or baptism services?: decline to answer Do you belong to any clubs or organized social groups?: no Panel score (0-1 are the most socially isolated patients): 1 What type of physical activity do you participate in: none and walking Duration: 30-45 minutes/day Frequency: 1-2 times per week Franca/Spiritism: Muslim Special franca needs: No Seatbelt use: always Helmet use: No Drive intox or ride w/intox 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: No Do you feel safe at home: Yes Do you feel safe in your relationship?: Yes Meds Allergies and Home Medications Allergies Allergy/AdvReac Type Severity Reaction Status Date / Time No Known Allergies Allergy Verified 03/14/21 17:44 Home Medications Medication Instructions Recorded Confirmed Type aspirin 81 mg tablet,delayed 81 mg PO DAILY 04/03/18 03/14/21 History release citalopram 20 mg tablet 20 mg PO DAILY 04/03/18 03/14/21 History loratadine 10 mg capsule 10 mg PO DAILY 04/03/18 03/14/21 History metformin 500 mg tablet 500 mg PO DAILY tab 04/03/18 03/14/21 History metoprolol succinate 25 mg 25 mg PO DAILY 04/03/18 03/14/21 History tablet,extended release 24 hr omeprazole 20 mg capsule,delayed 20 mg PO DAILY 04/03/18 03/14/21 History release furosemide 20 mg tablet 20 mg PO DAILY 09/01/18 03/14/21 History lisinopril 20 1 tab PO DAILY 09/01/18 03/14/21 History mg-hydrochlorothiazide 12.5 mg tablet multivitamin with minerals-ferrous 1 mg PO DAILY PRN tab 09/01/18 03/14/21 History sulfate 4.5 mg iron tablet ibuprofen 800 mg PO PRN PRN 10/06/18 03/14/21 History atorvastatin [Lipitor] 40 mg PO QPM #0 tab 06/08/20 03/14/21 Rx empagliflozin 10 mg tablet 15 mg PO DAILY tab 06/30/20 03/14/21 History sildenafil 50 mg tablet 100 mg PO DAILY PRN tab 06/30/20 03/14/21 History ticagrelor 90 mg tablet 90 mg PO BID tab 06/30/20 03/14/21 History budesonide-formoterol HFA 160 2 puff INHALATION BID 03/05/21 03/14/21 History mcg-4.5 mcg/actuation aerosol inhaler fluticasone propionate 50 1 spray INTRANASAL BID 03/05/21 03/14/21 History mcg/actuation nasal spray,suspension nitroglycerin 0.4 mg sublingual 0.4 mg SUBLINGUAL ONCE 03/05/21 03/14/21 History tablet Exam Const General: cooperative, comfortable, no acute distress, disheveled and not ill appearing Nutritional Appearance: overweight Orientation: alert, awake and oriented x3 Neck Neck: normal visual inspection and no lymphadenopathy Thyroid: thyroid normal Chest Chest: normal palpation of entire chest wall and no tenderness Resp Effort & Inspection: normal respiratory effort and able to speak in complete sentences Auscultation: clear to auscultation bilaterally, no rales and no rhonchi Cardio Jugular venous pressure: no JVD Rate: regular rate Rhythm: regular rhythm Heart Sounds: S1 normal, S2 normal, no gallops and no murmurs GI Inspection: normal to inspection Palpation: soft, no hepatosplenomegaly and nontender Skin General skin exam: no rashes or lesions noted Extrem General: normal to inspection, no pedal edema and no calf tenderness Results Labs Result diagrams: 03/14/21 17:57 03/14/21 17:57 Labs: Laboratory Results - last 24 hr 03/14/21 03/14/21 03/14/21 17:57 17:57 17:57 WBC 5.67 RBC 4.69 Hgb 12.9 L Hct 41.4 MCV 88.3 MCH 27.5 MCHC 31.2 L RDW 13.5 Plt Count 260 MPV 9.5 Immature Gran % 0.2 Neutrophils % 56.9 Lymphocytes % 29.5 Monocytes % 7.9 Eosinophils % 4.6 Basophils % 0.9 Nucleated RBC % 0 Absolute Neutrophils 3.23 Absolute Lymphocytes 1.67 Absolute Monocytes 0.45 Absolute Eosinophils 0.26 Absolute Basophils 0.05 APTT 22.7 D-Dimer Sodium 139 Potassium 3.6 Chloride 104 Carbon Dioxide 27.3 Anion Gap 7.7 BUN 20 H Creatinine 1.3 Estimated GFR/1.73 m2 55.58 Glucose 166 H Calcium 8.8 Total Bilirubin 0.5 AST 19 ALT 31 Alkaline Phosphatase 79 Troponin I < 50 Total Protein 7.4 Albumin 3.9 COVID-19 Source SARS-CoV-2 (PCR) 03/14/21 03/14/21 17:57 18:20 WBC RBC Hgb Hct MCV MCH MCHC RDW Plt Count MPV Immature Gran % Neutrophils % Lymphocytes % Monocytes % Eosinophils % Basophils % Nucleated RBC % Absolute Neutrophils Absolute Lymphocytes Absolute Monocytes Absolute Eosinophils Absolute Basophils APTT D-Dimer 430 Sodium Potassium Chloride Carbon Dioxide Anion Gap BUN Creatinine Estimated GFR/1.73 m2 Glucose Calcium Total Bilirubin AST ALT Alkaline Phosphatase Troponin I Total Protein Albumin COVID-19 Source Nasal/Nares SARS-CoV-2 (PCR) Negative Last Vital Signs Temp 36.6 C 03/14/21 17:42 Pulse 57 L 03/14/21 20:31 Resp 18 03/14/21 20:31 BP 107/72 03/14/21 20:31 Pulse Ox 98 03/14/21 20:31
[2021-03-14 21:23] LABS: Troponin I < 50 ng/L (<or=60)
[2021-03-15 00:05] VITALS: PULSE 64
[2021-03-15 01:13] LABS: PTT Activated 34.3 sec (21.0-27.5)
[2021-03-15] MEDS: Normal Saline Flush 10 ML SYR IVP ×3 (02:05→08:29)
[2021-03-15 03:34] VITALS: BP 142/87; PULSE 55; RESP 18; TEMP 36.3; O2SAT 98
[2021-03-15 07:00] VITALS: PULSE 54
[2021-03-15] MEDS: Citalopram 20 MG TAB PO (07:56)
[2021-03-15] MEDS: Metoprolol CR 25 MG TABCR PO (07:56)
[2021-03-15] MEDS: hydroCHLOROthiazide 12.5 MG TAB PO (07:56)
[2021-03-15] MEDS: Loratidine 10 MG TAB PO (07:57)
[2021-03-15] MEDS: Aspirin E.C. 81 MG TABEC PO (07:57)
[2021-03-15] MEDS: Lisinopril 20 MG TAB PO (07:57)
[2021-03-15] MEDS: Omeprazole 20 MG CAPCR PO (07:57)
[2021-03-15] MEDS: Furosemide 20 MG TAB PO (07:57)
[2021-03-15] MEDS: Ticagrelor 90 MG TAB PO (07:57)
[2021-03-15] MEDS: metFORMIN 500 MG TAB PO (07:57)
[2021-03-15] MEDS: Budesonide/Formoterol 160/4.5 6 GM 60 PUFF INH IH (08:02)
[2021-03-15] MEDS: Fluticasone NASAL SPRAY 16 GM BTL NS (08:28)
[2021-03-15 08:42] VITALS: BP 133/79; PULSE 60; RESP 17; TEMP 36.6; O2SAT 98
[2021-03-15 09:25] LABS: PTT Activated 39.2 sec (21.0-27.5)
--- NOTE | 2021-03-15 09:57 | W.PM.DS.N ---
Date of service: 03/15/21 Time of Service: 09:57 DS: Diagnosis Discharge Diagnosis (1) Chest pain: Discharge Plan Disposition Patient Disposition: HOME Condition: Stable Discharge Details Reason For Visit: Chest Pain Admit Date/Time: 03/14/21 18:55 Admit Provider: Usman Noel Attending Provider: Usman Noel Primary Care Provider: Lamberto Briceño Hospital Course Hospital Course: This 65-year-old male who presented to the ED with c/o chest discomfort. He has a history of coronary artery disease, diabetes mellitus hypertension COPD. He says he had a stent placed in [place] about 17 years ago. He also says he had a stent placed he thinks in March of this year at [facility]. He says he has intermittent chest pain frequently but is not severe. 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 He says that taking care of her is quite stressful for him. He says he has to take care of all his mother's needs but they do have a gas station manager that comes in once a week to help clean. Over the last 2 days he has had increased amount of chest discomfort. There is tightness in pressure in the central part of his chest without radiation. Today about 4 PM he developed pain and took 2 nitroglycerin tablets. The pain was relieved but got worse again and he came here to be seen. The pain was associated with diaphoresis and shortness of breath but no nausea or vomiting. He was placed on nitroglycerin infusion in the ED which was quickly weaned off. His troponins remained negative and he remained pain free. He will be discharged on home on isorsobide mononitrate 30 mg with close follow up with cardiology. discussed with Dr Scruggs Home Meds and New Rx's Prescriptions: New isosorbide mononitrate 30 mg tablet extended release 24 hr 30 mg PO DAILY Qty: 30 RF: 0 Continued metformin 500 mg tablet 500 mg PO DAILY RF: 0 aspirin [Aspir-81] 81 mg tablet,delayed release (DR/EC) 81 mg PO DAILY RF: 0 citalopram 20 mg tablet 20 mg PO DAILY RF: 0 omeprazole 20 mg capsule,delayed release(DR/EC) 20 mg PO DAILY RF: 0 metoprolol succinate 25 mg tablet extended release 24 hr 25 mg PO DAILY RF: 0 loratadine 10 mg capsule 10 mg PO DAILY RF: 0 Jardiance 10 mg tablet 10 mg PO DAILY RF: 0 One Daily Multi-Vit w-Mineral 4.5 mg iron tablet 1 mg PO DAILY PRNRF: 0 lisinopril-hydrochlorothiazide 20-12.5 mg tablet 1 tab PO DAILY RF: 0 furosemide [Lasix] 20 mg tablet 20 mg PO DAILY RF: 0 nitroglycerin 0.4 mg tablet, sublingual 0.4 mg sublingual ONCE RF: 0 fluticasone propionate [Flonase Allergy Relief] 50 mcg/actuation spray,suspension 1 spray intranasal BID RF: 0 budesonide-formoterol [Symbicort] 160-4.5 mcg/actuation HFA aerosol inhaler 2 puff inhalation BID RF: 0 atorvastatin [Lipitor] 40 mg Tablet 40 mg PO QPM Qty: 0 RF: 0 Brilinta 90 mg tablet 90 mg PO BID RF: 0 ibuprofen 200 mg Tablet 800 mg PO PRN PRNRF: 0 Discontinued sildenafil [Viagra] 50 mg tablet 100 mg PO DAILY PRNRF: 0 Discharge Instructions Instructions: Chest Pain (DC) Additional Instructions: discuss if safe to take viagra while on imdur with your cardiology Stand Alone Forms: Nursing Discharge Form Referrals: Jaelyn Rizzo MD [ [facility] STAFF PHYSICIAN] - Lamberto Briceño MD [Primary Care Provider] - 03/21/21 9:20 am Activity:: Activity as Tolerated Equipment/Supplies:: No Equipment Needed Diet:: As Tolerated Discharge Orders Discharge Orders: Discharge Order (Routine); Ordered 03/15/21 Ordered By: Blanca Onofre Other Ambulatory Orders: [facility] MPI rest & stress grp (Routine) Location: None Selected Ordered By: Blanca Onofre Discharge Data Discharge Date/Time-TO BE ENTERED AT DEPARTURE: 03/15/21 11:44 DS: Summary Time Spent with Patient providing and/or coordinating discharge services: Less than 30 minutes Status at Discharge Functional status at discharge: independent ambulation Overall status at discharge: patient is back to baseline Mental Status: mental status grossly normal Speech and Movement: speech and movement normal Mood: congruent mood Affect: normal affect Exam Psych Mental Status: mental status grossly normal Speech and Movement: speech and movement normal Mood: congruent mood Affect: normal affect DS: Data Vitals/I&O Vitals and I&O: Vital Signs Temperature 36.6 C 03/15/21 08:42 Temperature Source Tympanic 03/15/21 08:42 Pulse 60 03/15/21 08:42 Pulse Rhythm Regular 03/15/21 08:47 Pulse 59 L 03/14/21 23:16 Respiratory Rate 17 03/15/21 08:42 Respiratory Effort Non-Labored 03/15/21 08:47 Respiratory Depth Normal 03/15/21 08:47 Respiratory Pattern Normal 03/15/21 08:47 Blood Pressure 133/79 03/15/21 08:42 Blood Pressure Mean 74 03/14/21 23:16 Blood Pressure Position Sitting 03/14/21 17:42 Pulse Oximetry 98 03/15/21 08:42 Oxygen Delivery Method Room Air 03/15/21 08:42 Oxygen Flow Rate 0 03/15/21 08:42 Pain Level 0 03/15/21 08:42 Intake & Output 03/14/21 03/14/21 03/15/21 11:59 23:59 11:59 Intake Total 253.613 / 253.613 146.933 / 146.933 Output Total 500 / 500 Balance 253.613 / 253.613 -353.067 / -353.067 Weight 101.4 kg Intake: IV 253.613 / 253.613 146.933 / 146.933 Output: Urine 500 / 500 Other: Urine Color Straw Urine Appearance Clear Urine Odor Normal Comment No hat in toilet when patient arrived to measure. He walked from the stretcher to the bathroom then to bed. Voiding Methods Toilet Toilet Data Completed and Pending Labs on day of discharge: Labs from last 24 hours 03/15/21 03/15/21 03/14/21 08:25 00:55 20:56 WBC RBC Hgb Hct MCV MCH MCHC RDW Plt Count MPV Immature Gran % Neutrophils % Lymphocytes % Monocytes % Eosinophils % Basophils % Nucleated RBC % Absolute Neutrophils Absolute Lymphocytes Absolute Monocytes Absolute Eosinophils Absolute Basophils APTT 39.2 H 34.3 H D D-Dimer Sodium Potassium Chloride Carbon Dioxide Anion Gap BUN Creatinine Estimated GFR/1.73 m2 Glucose Calcium Total Bilirubin AST ALT Alkaline Phosphatase Troponin I < 50 Total Protein Albumin COVID-19 Source SARS-CoV-2 (PCR) 03/14/21 03/14/21 03/14/21 18:20 17:57 17:57 WBC RBC Hgb Hct MCV MCH MCHC RDW Plt Count MPV Immature Gran % Neutrophils % Lymphocytes % Monocytes % Eosinophils % Basophils % Nucleated RBC % Absolute Neutrophils Absolute Lymphocytes Absolute Monocytes Absolute Eosinophils Absolute Basophils APTT 22.7 D-Dimer 430 Sodium Potassium Chloride Carbon Dioxide Anion Gap BUN Creatinine Estimated GFR/1.73 m2 Glucose Calcium Total Bilirubin AST ALT Alkaline Phosphatase Troponin I Total Protein Albumin COVID-19 Source Nasal/Nares SARS-CoV-2 (PCR) Negative 03/14/21 03/14/21 17:57 17:57 WBC 5.67 RBC 4.69 Hgb 12.9 L Hct 41.4 MCV 88.3 MCH 27.5 MCHC 31.2 L RDW 13.5 Plt Count 260 MPV 9.5 Immature Gran % 0.2 Neutrophils % 56.9 Lymphocytes % 29.5 Monocytes % 7.9 Eosinophils % 4.6 Basophils % 0.9 Nucleated RBC % 0 Absolute Neutrophils 3.23 Absolute Lymphocytes 1.67 Absolute Monocytes 0.45 Absolute Eosinophils 0.26 Absolute Basophils 0.05 APTT D-Dimer Sodium 139 Potassium 3.6 Chloride 104 Carbon Dioxide 27.3 Anion Gap 7.7 BUN 20 H Creatinine 1.3 Estimated GFR/1.73 m2 55.58 Glucose 166 H Calcium 8.8 Total Bilirubin 0.5 AST 19 ALT 31 Alkaline Phosphatase 79 Troponin I < 50 Total Protein 7.4 Albumin 3.9 COVID-19 Source SARS-CoV-2 (PCR) PFSH All Active Problems (Updated 03/16/21 @ 00:01 by EMILIA BARRIOS) NSTEMI (non-ST elevated myocardial infarction) (Acute) Pulmonary emphysema (Acute) Astigmatism with presbyopia (Acute) Cataract (Chronic) Glaucoma (Chronic) Lipoma (Acute) ED (erectile dysfunction) (Acute) Physical deconditioning (Acute) Uvular hypertrophy (Acute) Acute coronary syndrome with high troponin (Acute) Chest pain (Acute) Obstructive sleep apnea (Chronic) Uvular edema (Acute) CAD (coronary artery disease) (Chronic) Diverticulosis (Acute) COPD (chronic obstructive pulmonary disease) (Chronic) GERD (gastroesophageal reflux disease) (Chronic) Hypertension (Chronic) Type 2 diabetes mellitus (Chronic) Hyperlipidemia (Chronic) Medical History Balance problems Chest pain Chronic cough Chronic low back pain Depression Dyslipidemia GERD (gastroesophageal reflux disease) H/O coronary angiogram History of non-insulin dependent diabetes mellitus Hypertension Positive cardiac stress test (~2015) PVD (peripheral vascular disease) Surgical History Bone spur of foot Excision Hx of heart artery stent SYLVESTER to D1 and RCA Hx of inguinal hernia repair Hx of umbilical hernia repair S/P colonoscopy done 10/06/18 Family History Mother Skin cancer Diabetes Hyperlipidemia Stroke Father , 83 Diabetes Heart disease Sister No problems noted. Sister , 50 No problems noted. Brother No problems noted. Brother No problems noted. Brother No problems noted. Social History Smoking/Tobacco Use Status: Former Tobacco Use tobacco type: cigarettes Quit Date: 03/24/97 Tobacco: How many years used: 5 Second Hand Exposure: Yes Smoking risk assessment performed?: Yes Alcohol Intake: former Drug use: Never Substance use type: does not use Caregiver/Support person: No Household members: significant other Housing: house Communication Needs: None Do you need help understanding health information?: Often Pets and animals: Yes Pets and animals: dog(s) Sexually active: Yes Do you think of yourself as: lesbian/burton/homosexual Current gender identity: male What is your relationship status?: living with partner How often do you talk on the phone with friends or family?: decline to answer How often do you get together with friends or relatives?: decline to answer How often do you attend pentecostalism or cheondoism services?: decline to answer Do you belong to any clubs or organized social groups?: no Panel score (0-1 are the most socially isolated patients): 1 What type of physical activity do you participate in: none and walking Duration: 30-45 minutes/day Frequency: 1-2 times per week Franca/Denominational: Confucianism Special franca needs: No Seatbelt use: always Helmet use: No Drive intox or ride w/intox driver guide: No Do you feel safe at home: Yes Do you feel safe in your relationship?: Yes
== END 2021-03-15 11:44 | disposition home or self-care (01) | DRG 313 ==
LOC: ER 23:46 → MS 23:48
PROVIDERS: Admitting Provider Family Medicine; Emergency Provider Student in an Organized Health Care Education/Training Program; PCP Family Medicine; Visit Provider Family Medicine
DX: R07.89 Other chest pain (principal); I25.10 Atherosclerotic heart disease of native coronary artery without angina pectoris; E11.9 Type 2 diabetes mellitus without complications; I10 Essential (primary) hypertension; J44.9 Chronic obstructive pulmonary disease, unspecified; Z95.5 Presence of coronary angioplasty implant and graft; R06.02 Shortness of breath; H40.9 Unspecified glaucoma; G47.33 Obstructive sleep apnea (adult) (pediatric); K21.9 Gastro-esophageal reflux disease without esophagitis; E78.5 Hyperlipidemia, unspecified; Z79.84 Long term (current) use of oral hypoglycemic drugs; I73.9 Peripheral vascular disease, unspecified; F32.A Depression, unspecified; G89.29 Other chronic pain; M54.50 Low back pain, unspecified; I45.10 Unspecified right bundle-branch block
CPT/HCPCS: 36415; 80053; 87635; 93005; 94640; 96361; 96365; 96366; 96367; 96376; 99291; 71045; 84484; 85025; 85379; 85730; 93010; 99222; 99238; J3490

== ENCOUNTER → 2021-03-26 12:55 | Outpatient (BNVA) | payer OTHER, MEDICAID, SELFPAY | PROVIDERS: PCP Family Medicine; Referring Provider Family Medicine; Visit Provider Internal Medicine Cardiovascular Disease | DX: I25.110 Atherosclerotic heart disease of native coronary artery with unstable angina pectoris (principal); I10 Essential (primary) hypertension; E78.5 Hyperlipidemia, unspecified | CPT/HCPCS: 99214; 99213 ==

== ENCOUNTER 2021-05-05 09:01 | Emergency (ER) | payer OTHER, MEDICAID, SELFPAY ==
[2021-05-05 09:04] VITALS: BP 135/73; PULSE 68; RESP 18; TEMP 36.3; O2SAT 98
--- NOTE | 2021-05-05 09:30 | DI.RAD_ITS ---
Exam(s) XR HAND RT COMPLETE EXAM: XR HAND RT COMPLETE CLINICAL HISTORY: fall injury. TECHNIQUE: 2D digital imaging was performed of the right hand. Three images were obtained. AP, late ral and oblique views were obtained. COMPARISON: No exams were available for comparison FINDINGS: BONES: No acute fracture is present. No bony destructive lesion is seen. JOINTS: No dislocation present. Arthritic changes of the hand. SOFT TISSUE: Normal. IMPRESSION: No acute fracture or dislocation. DATA REPOSITORY: RADIATION DOSE DELIVERED:
--- NOTE | 2021-05-05 09:30 | DI.RAD_ITS ---
Exam(s) XR SHOULDER RT COMPLETE 2+V EXAM: XR SHOULDER RT COMPLETE 2+V CLINICAL HISTORY: fall injury. TECHNIQUE: 2D digital imaging was performed of the right shoulder. Five images were obtained. AP, Grashey, Y-view and axillary views were obtained. COMPARISON: No exams were available for comparison FINDINGS: BONES: No acute fracture is present. No bony destructive lesion is seen. JOINTS: No dislocation present. Mild degenerative changes of the AC joint and glenohumeral joint. SOFT TISSUE: Normal. IMPRESSION: No acute fracture or dislocation. DATA REPOSITORY: RADIATION DOSE DELIVERED:
--- NOTE | 2021-05-05 09:33 | W.ED.GENAD ---
Discharge Plan Disposition Patient Disposition: HOME Condition: Stable Discharge Details Clinical Impression: Hand pain, right, Right shoulder pain Primary Care Provider: Lamberto Briceño ED Provider: Sinan Figueroa Home Meds and New Rx's Prescriptions: Continued metformin 500 mg tablet 500 mg PO DAILY 0RF Rx Instructions: 500mg in am, 1000mg in the evening aspirin [Aspir-81] 81 mg tablet,delayed release (DR/EC) 81 mg PO DAILY 0RF citalopram 20 mg tablet 20 mg PO DAILY 0RF omeprazole 20 mg capsule,delayed release(DR/EC) 20 mg PO DAILY 0RF metoprolol succinate 25 mg tablet extended release 24 hr 25 mg PO DAILY 0RF loratadine 10 mg capsule 10 mg PO DAILY 0RF Jardiance 10 mg tablet 10 mg PO DAILY 0RF One Daily Multi-Vit w-Mineral 4.5 mg iron tablet 1 mg PO DAILY PRN0RF lisinopril-hydrochlorothiazide 20-12.5 mg tablet 1 tab PO DAILY 0RF furosemide [Lasix] 20 mg tablet 20 mg PO DAILY 0RF nitroglycerin 0.4 mg tablet, sublingual 0.4 mg sublingual ONCE 0RF Rx Instructions: as a single dose; administer 5-10 minutes before situation known to precipitate angina attack fluticasone propionate [Flonase Allergy Relief] 50 mcg/actuation spray,suspension 1 spray intranasal BID 0RF Rx Instructions: administer into each nostril budesonide-formoterol [Symbicort] 160-4.5 mcg/actuation HFA aerosol inhaler 2 puff inhalation BID 0RF atorvastatin [Lipitor] 40 mg Tablet 40 mg PO QPM Qty: 0 0RF Brilinta 90 mg tablet 90 mg PO BID 0RF ibuprofen 200 mg Tablet 800 mg PO PRN PRN0RF Discharge Instructions Instructions: Shoulder Pain (ED), Hand Sprain (ED) Additional Instructions: X-ray of your hand and shoulder were both unremarkable. Wear splint and use sling as needed, advance activity as tolerated. Be sure to passive range of motion at least 4 times a day to avoid a frozen shoulder. [id number] Tylenol and/or Motrin as directed for discomfort. Cool compresses every 2 hours for 20 minutes. Please watch for new or worsening symptoms and return to the ER for any concerns. Lastly, I am giving you the name and number of our local orthopedic team if symptoms not improving over the next 5 days I recommend contacting their office for outpatient reevaluation. Referrals: Junaid Jj MD [ [facility] STAFF PHYSICIAN] - Medical Decision Making 65-year-old gentleman, [id number], presents for mechanical fall 5 weeks ago injuring his right shoulder and hand. Simply not improving, now seeking medical attention. Neuro, vascular, tendon intact. No obvious deformity. Plan is to obtain shoulder x-ray as well as hand x-ray. X-ray of shoulder and hand are unremarkable. Discussed findings with patient. Will place the patient into a shoulder sling and universal wrist-hand splint. We discussed the importance of passive range of motion to avoid a frozen shoulder. Rest, elevate, cool compresses as tolerated. [id number] Tylenol and/or Motrin as directed for discomfort. Orthopedic referral given. Standard discharge and return precautions provided This documentation was generated using Nitro dictation system, please disregard any oddities of phrase or misspellings. Medical Records Medical records reviewed: Yes I reviewed the patient's medical records. Imaging Data Radiologic Study: Radiologist's impression: PROCEDURE INFORMATION: Exam: XR Right Shoulder Exam date and time: 05/05/2021 9:32 AM Age: 65 years old Clinical indication: Other: Trauma, right shoulder pain TECHNIQUE: Imaging protocol: XR Right shoulder. Views: 2 or more views. COMPARISON: XR PORTABLE CHEST AP 03/14/2021 6:05 PM FINDINGS: Bones/joints: No evidence of an acute bony abnormality. Moderate arthrosis of the acromioclavicular joint is present. Minimal arthrosis of the glenohumeral joint is present. Soft tissues: Normal. IMPRESSION: No acute findings. Radiologic Study #2: Radiologist's impression: PROCEDURE INFORMATION: Exam: XR Right Hand Exam date and time: 05/05/2021 9:32 AM Age: 65 years old Clinical indication: Other: Trauma, right hand pain TECHNIQUE: Imaging protocol: XR Right hand. Views: 3 or more views. COMPARISON: No relevant prior studies available. FINDINGS: Bones/joints: No evidence of an acute displaced fracture. Old posttraumatic changes present about the 5th metacarpal. Mild scattered osteoarthritic changes present. Soft tissues: Normal. IMPRESSION: No acute findings HPI General Date/Time Provider Initiated Documentation: 05/05/21 09:31. Limitations to Documentation: no limitations. Information obtained by: patient. HPI Narrative: This is a 65-year-old gentleman, past medical history that includes CAD, COPD, GERD, hypertension, diabetes, hyperlipidemia, depression, former smoker, presenting to the ER for evaluation of right shoulder and hand pain. Patient reports that he is right-hand dominant. Approximately 5 weeks ago he was shoveling snow outside on a ramp, fell backwards striking his right arm. He reports the pain is in 2 distinct locations both in his shoulder and right hand and occasionally there is shooting pain between the 2. He reports the pain is moderate to severe, worse with movement. He denies any other injury, numbness, tingling, weakness. He did not strike his head. Patient has not sought medical attention for this because he was waiting for it to get better on its own. He is taking [id number] ibuprofen with no relief. Related Data Home Medications Medication Instructions Recorded Confirmed aspirin 81 mg tablet,delayed 81 mg PO DAILY 04/03/18 05/05/21 release (Aspir-) citalopram 20 mg tablet 20 mg PO DAILY 04/03/18 05/05/21 loratadine 10 mg capsule 10 mg PO DAILY 04/03/18 05/05/21 metformin 500 mg tablet 500 mg PO DAILY tab 04/03/18 05/05/21 metoprolol succinate 25 mg 25 mg PO DAILY 04/03/18 05/05/21 tablet,extended release 24 hr omeprazole 20 mg capsule,delayed 20 mg PO DAILY 04/03/18 05/05/21 release furosemide 20 mg tablet (Lasix) 20 mg PO DAILY 09/01/18 05/05/21 lisinopril 20 1 tab PO DAILY 09/01/18 05/05/21 mg-hydrochlorothiazide 12.5 mg tablet multivitamin with minerals-ferrous 1 mg PO DAILY PRN tab 09/01/18 05/05/21 sulfate 4.5 mg iron tablet (One Daily Multivitamins with Minerals) ibuprofen 200 mg tablet 800 mg PO PRN PRN 10/06/18 05/05/21 atorvastatin 40 mg tablet (Lipitor) 40 mg PO QPM #0 tab 06/08/20 05/05/21 empagliflozin 10 mg tablet 10 mg PO DAILY tab 06/30/20 05/05/21 (Jardiance) ticagrelor 90 mg tablet (Brilinta) 90 mg PO BID tab 06/30/20 05/05/21 budesonide-formoterol HFA 160 2 puff INHALATION BID 03/05/21 05/05/21 mcg-4.5 mcg/actuation aerosol inhaler (Symbicort) fluticasone propionate 50 1 spray INTRANASAL BID 03/05/21 05/05/21 mcg/actuation nasal spray,suspension (Flonase Allergy Relief) nitroglycerin 0.4 mg sublingual 0.4 mg SUBLINGUAL ONCE 03/05/21 05/05/21 tablet Previous Rx's Medication Instructions Recorded atorvastatin 40 mg tablet (Lipitor) 40 mg PO QPM #0 tab 06/08/20 Allergies Allergy/AdvReac Type Severity Reaction Status Date / Time isosorbide AdvReac headache, Verified 05/05/21 09:11 ,lightheaded General Stated Complaint: Orthopedic EMILIANO: 3 Review of Systems Constitutional Constitutional: Denies fever(s), Denies headache(s) and Denies weakness ENT Ears, Nose, Mouth, and Throat: Denies headache(s) and Denies neck pain Cardiovascular Cardiovascular: Denies chest pain Gastrointestinal Gastrointestinal: Denies abdominal pain, Denies nausea and Denies vomiting Musculoskeletal Musculoskeletal: Denies neck pain, Denies numbness and Denies tingling Neurologic Neurologic: Denies headache(s), Denies numbness, Denies tingling and Denies weakness PFSH All Active Problems (Updated 05/05/21 @ 10:23 by CHAVA Avilez) Hand pain, right (Acute) Right shoulder pain (Acute) Astigmatism with presbyopia (Acute) Cataract (Chronic) Glaucoma (Chronic) Lipoma (Acute) ED (erectile dysfunction) (Acute) Obstructive sleep apnea (Chronic) CAD (coronary artery disease) (Chronic) [id number] , treated at [facility], stent to RCA which was a revision, followed by cardiology at [facility] COPD (chronic obstructive pulmonary disease) (Chronic) GERD (gastroesophageal reflux disease) (Chronic) Hypertension (Chronic) Type 2 diabetes mellitus (Chronic) [id number] foot Hyperlipidemia (Chronic) Medical History Balance problems Chest pain Chest pain Chronic cough Chronic low back pain Depression Dyslipidemia GERD (gastroesophageal reflux disease) H/O coronary angiogram History of non-insulin dependent diabetes mellitus Hypertension Positive cardiac stress test (~2015) PVD (peripheral vascular disease) Surgical History Bone spur of foot Excision Hx of heart artery stent SYLVESTER to D1 and RCA Hx of inguinal hernia repair Hx of umbilical hernia repair S/P colonoscopy done 10/06/18 Family History Mother Skin cancer Diabetes Hyperlipidemia Stroke Father , 83 Diabetes Heart disease Sister No problems noted. Sister , 50 No problems noted. Brother No problems noted. Brother No problems noted. Brother No problems noted. Social History Smoking/Tobacco Use Status: Former Tobacco Use tobacco type: cigarettes Quit Date: 03/24/97 Tobacco: How many years used: 5 Second Hand Exposure: Yes Smoking risk assessment performed?: Yes Alcohol Intake: former Drug use: Never Substance use type: does not use Caregiver/Support person: No Household members: significant other Housing: house Communication Needs: None Do you need help understanding health information?: Often Pets and animals: Yes Pets and animals: dog(s) Sexually active: Yes Do you think of yourself as: lesbian/burton/homosexual Current gender identity: male What is your relationship status?: living with partner How often do you talk on the phone with friends or family?: decline to answer How often do you get together with friends or relatives?: decline to answer How often do you attend taoism or rastafari services?: decline to answer Do you belong to any clubs or organized social groups?: no Panel score (0-1 are the most socially isolated patients): 1 What type of physical activity do you participate in: none and walking Duration: 30-45 minutes/day Frequency: 1-2 times per week Franca/Mandaeism: Yarsanism Special franca needs: No Seatbelt use: always Helmet use: No Drive intox or ride w/intox transport driver: No Do you feel safe at home: Yes Do you feel safe in your relationship?: Yes Exam Const General: cooperative, healthy appearing, comfortable and no acute distress Orientation: alert and awake [facility] Head: normal to inspection, normocephalic and atraumatic Eyes Conjunctivae: conjunctivae normal Neck Neck: normal visual inspection, full ROM, trachea midline, supple and nontender Resp Effort & Inspection: normal respiratory effort and able to speak in complete sentences Cardio Rate: regular rate Rhythm: regular rhythm Skin General skin exam: no rashes or lesions noted Neuro General: patient alert, patient awake, moves all extremities and no focal motor deficits Cognition: normal cognition Speech: speech normal Gait: normal gait Motor: muscle tone normal throughout Sensory Exam: no sensory deficits noted Extrem General: normal to inspection, full ROM and capillary refill normal Other: Patient with diffuse discomfort to his posterior-lateral right shoulder as well as the dorsal aspect of his right hand. There is no deformity or bony point tenderness. There is no swelling, erythema, ecchymosis. Full range of motion. Neuro, vascular, tendon intact. Normal radial pulse and capillary refill. Psych Appearance: grossly normal Mental Status: mental status grossly normal Course Vital Signs Vital signs: Vital Signs Temperature 36.3 C L 05/05/21 09:04 Pulse 68 05/05/21 09:04 Respiratory Rate 18 05/05/21 09:04 Blood Pressure 135/73 05/05/21 09:04 Pulse Oximetry 98 05/05/21 09:04 Temperature 36.3 C L 05/05/21 09:04 Temperature Source Skin 05/05/21 09:04 Pulse 68 05/05/21 09:04 Respiratory Rate 18 05/05/21 09:04 Respiratory Effort 05/05/21 09:12 Blood Pressure 135/73 05/05/21 09:04 Pulse Oximetry 98 05/05/21 09:04 Oxygen Delivery Method Room Air 05/05/21 09:04 Oxygen Flow Rate 0 05/05/21 09:04 Pain Level 10 05/05/21 09:13
--- NOTE | 2021-05-05 10:10 | DI.VRAD_ITS ---
PROCEDURE INFORMATION: Exam: XR Right Hand Exam date and time: 05/05/2021 9:32 AM Age: 65 years old Clinical indication: Other: Trauma, right hand pain TECHNIQUE: Imaging protocol: XR Right hand. Views: 3 or more views. COMPARISON: No relevant prior studies available. FINDINGS: Bones/joints: No evidence of an acute displaced fracture. Old posttraumatic changes present about the 5th metacarpal. Mild scattered osteoarthritic changes present. Soft tissues: Normal. IMPRESSION: No acute findings. Dictated and Authenticated by: Gus Winter MD. Ordering:NIRAV Menon MD
--- NOTE | 2021-05-05 10:11 | DI.VRAD_ITS ---
PROCEDURE INFORMATION: Exam: XR Right Shoulder Exam date and time: 05/05/2021 9:32 AM Age: 65 years old Clinical indication: Other: Trauma, right shoulder pain TECHNIQUE: Imaging protocol: XR Right shoulder. Views: 2 or more views. COMPARISON: XR PORTABLE CHEST AP 03/14/2021 6:05 PM FINDINGS: Bones/joints: No evidence of an acute bony abnormality. Moderate arthrosis of the acromioclavicular joint is present. Minimal arthrosis of the glenohumeral joint is present. Soft tissues: Normal. IMPRESSION: No acute findings. Dictated and Authenticated by: Gus Winter MD. Ordering:NIRAV Menon MD
== END 2021-05-05 10:41 | disposition home or self-care (01) ==
PROVIDERS: Emergency Provider Physician Assistant; PCP Family Medicine
DX: M25.511 Pain in right shoulder (principal); M79.641 Pain in right hand; W18.39XA Other fall on same level, initial encounter
CPT/HCPCS: 29125; 99284; 73030; 73130; 99283

== ENCOUNTER 2021-05-15 08:37 | Emergency (ER) | payer OTHER, MEDICAID, SELFPAY ==
[2021-05-15] VITALS (21 sets, daily range): BP systolic 93–144; BP diastolic 50–102; PULSE 59–90; RESP 12–24; TEMP 36.7; O2SAT 94–98
--- NOTE | 2021-05-15 08:30 | RT.EKG_ITS ---
APPROVED REPORT Exam: Resting ECG Reason for Exam: racing heart Patient Location: E HR:69 bpm ECG Measurements Heart Rate 69 AXIS NC 150 P 40 QRSd 130 QRS -26 QT 447 T 23 QTc 480 Conclusion Sinus rhythm...normal P axis, V-rate 60- 99 Right bundle branch block...QRSd>120, terminal axis(90,270) sinus rhythm, right bundle branch block, non ischemic
--- NOTE | 2021-05-15 08:45 | DI.RAD_ITS ---
Exam(s) XR PORTABLE CHEST AP EXAM: XR PORTABLE CHEST AP CLINICAL HISTORY: Palpitations. TECHNIQUE: 2D digital imaging was performed. COMPARISON: CR,XR XR PORTABLE CHEST AP from 03/14/2021 FINDINGS: LUNGS: Clear. No pleural abnormality seen. HEART: Normal. MEDIASTINUM: Normal. OTHER FINDINGS: None. IMPRESSION: No acute pulmonary findings. DATA REPOSITORY: RADIATION DOSE DELIVERED: Total DLP
--- NOTE | 2021-05-15 09:10 | W.ED.GENAD ---
Discharge Plan Disposition Patient Disposition: HOME Condition: Improving Discharge Details Clinical Impression: Palpitations Primary Care Provider: Lamberto Briceño ED Provider: Sinan Figueroa Home Meds and New Rx's Prescriptions: Continued metformin 500 mg tablet 500 mg PO DAILY 0RF Rx Instructions: 500mg in am, 1000mg in the evening aspirin [Aspir-81] 81 mg tablet,delayed release (DR/EC) 81 mg PO DAILY 0RF citalopram 20 mg tablet 20 mg PO DAILY 0RF omeprazole 20 mg capsule,delayed release(DR/EC) 20 mg PO DAILY 0RF metoprolol succinate 25 mg tablet extended release 24 hr 25 mg PO DAILY 0RF loratadine 10 mg capsule 10 mg PO DAILY 0RF Jardiance 10 mg tablet 10 mg PO DAILY 0RF One Daily Multi-Vit w-Mineral 4.5 mg iron tablet 1 mg PO DAILY PRN0RF lisinopril-hydrochlorothiazide 20-12.5 mg tablet 1 tab PO DAILY 0RF furosemide [Lasix] 20 mg tablet 20 mg PO DAILY 0RF nitroglycerin 0.4 mg tablet, sublingual 0.4 mg sublingual ONCE 0RF Rx Instructions: as a single dose; administer 5-10 minutes before situation known to precipitate angina attack fluticasone propionate [Flonase Allergy Relief] 50 mcg/actuation spray,suspension 1 spray intranasal BID 0RF Rx Instructions: administer into each nostril budesonide-formoterol [Symbicort] 160-4.5 mcg/actuation HFA aerosol inhaler 2 puff inhalation BID 0RF atorvastatin [Lipitor] 40 mg Tablet 40 mg PO QPM Qty: 0 0RF Brilinta 90 mg tablet 90 mg PO BID 0RF ibuprofen 200 mg Tablet 800 mg PO PRN PRN0RF Discharge Instructions Instructions: Heart Palpitations (ED) Additional Instructions: Work-up in the ER does not reveal any obvious emergent process but unfortunately I do not have a clear source of your symptoms. I have set you up with a 48-hour Holter monitor, please follow the instructions given to you by respiratory therapy. Please watch for new or worsening symptoms and return to the ER for any concerns. Lastly, I recommend contacting your primary care provider later today or tomorrow to discuss your ER visit and ongoing symptoms and set up outpatient reevaluation Medical Decision Making This is a 65-year-old gentleman presenting for what he describes as acute on chronic palpitations with in turn causes his breath to be taken away and supervisory it specialist with generalized weakness which makes his baseline ataxia worse. He states that began this morning while standing, and movement does tend to make his symptoms worse. He admits to drinking multiple cups of coffee daily but only 1 glass of water. At rest she is currently asymptomatic but states that he can replicate the sensation with movement. He denies any chest pain whatsoever. Clinically he is slightly anxious but appears well, nontoxic and his vital signs are hemodynamically stable. I have asked that we obtain orthostatics. Plan is to obtain IV access, give IV fluid, initiate cardiac work-up including D-dimer and thyroid studies. Orthostatic were not impressive. Upon standing patient reports that his sensation has returned but he shows no evidence of arrhythmia or tachycardia. Initial laboratory values are unremarkable for any obvious emergent process. No leukocytosis or anemia. D-dimer is normal, we will not pursue CTA of the chest. Electrolytes normal, creatinine 1.2 with a GFR greater than 60. Magnesium 2.1 glucose 129, troponin less than 50, TSH 2.38. Urine unremarkable for infectious process. COVID negative Discussed initial work-up with patient. He is relieved is concerned and frustrated. He is agreeable to awaiting a repeat troponin. In the meantime he will be given lunch and he was witnessed ambulating steadily to the restroom multiple times Multiple reassessments obtained, patient remains hemodynamically stable and neurologically intact. Again he is ambulatory to the restroom very steadily. Given his palpitation feelings, will set him up with a 48-hour Holter monitor Delta troponin is unremarkable. Remains less than 50. Discussed delta troponin with patient. Patient reports feeling much improvement and is resting comfortably. He is comfortable discharge and has no additional questions or concerns. Standard discharge and return precautions were provided. This documentation was generated using [employer] system, please disregard any oddities of phrase or misspellings. Medical Records Medical records reviewed: Yes I reviewed the patient's medical records. Imaging Data Radiologic Study: Attestation: I personally reviewed and interpreted this imaging study as follows: Imaging: X-Ray Radiologist's impression: Exam(s) XR PORTABLE CHEST AP EXAM:? XR PORTABLE CHEST AP CLINICAL HISTORY: ? Palpitations.? TECHNIQUE:? 2D digital imaging was performed. COMPARISON:? CR,XR XR PORTABLE CHEST AP from 03/14/2021 FINDINGS: LUNGS: Clear. No pleural abnormality seen. HEART: Normal. MEDIASTINUM: Normal. OTHER FINDINGS: None. IMPRESSION: No acute pulmonary findings. Lab Data Lab results reviewed: Yes I reviewed the patient's lab results. Labs: Laboratory Tests Range/Units 05/15/21 05/15/21 05/15/21 09:10 09:10 09:10 WBC (4.4-10.8) 10^3/uL 5.21 RBC (4.36-5.78) 10^6/uL 4.81 Hgb (13.5-17.5) g/dL 13.1 L Hct (40.0-50.0) % 41.1 MCV (80-95) fL 85.4 MCH (27.0-33.0) pg 27.2 MCHC (32.0-36.0) % 31.9 L RDW (11.8-14.1) % 13.5 Plt Count (130-400) 10^3/uL 214 MPV (8.0-11.0) fL 9.4 Immature Gran % 0.4 Neutrophils % 63.5 Lymphocytes % 24.2 Monocytes % 6.9 Eosinophils % 4.2 Basophils % 0.8 Nucleated RBC % % 0 Absolute Neutrophils (1.2-6.7) 10^3/uL 3.31 Absolute Lymphocytes (1.2-3.4) 10^3/uL 1.26 Absolute Monocytes (0.1-0.8) 10^3/uL 0.36 Absolute Eosinophils (0.0-0.7) 10^3/uL 0.22 Absolute Basophils (0.0-0.2) 10^3/uL 0.04 D-Dimer (<500) ng/mlFEU 493 Sodium (136-145) mmol/L 139 Potassium (3.5-5.1) mmol/L 4.0 Chloride (98-107) mmol/L 102 Carbon Dioxide (21.0-32.0) mmol/L 25.6 Anion Gap (3-11) mmol/L 11.4 H BUN (7-18) mg/dL 30 H Creatinine (0.70-1.30) mg/dL 1.2 Estimated GFR/1.73 m2 (mL/min/1.73m2) >= 60.00 Glucose (74-106) mg/dL 129 H Calcium (8.5-10.1) mg/dL 8.9 Magnesium (1.8-2.4) mg/dL 2.1 Total Bilirubin (0.2-1.0) mg/dL 0.5 AST (15-37) U/L 20 ALT (16-63) U/L 31 Alkaline Phosphatase (46-116) U/L 77 Troponin I (<or=60) ng/L < 50 Total Protein (6.4-8.2) g/dL 7.6 Albumin (3.4-5.0) g/dL 4.1 TSH (0.36-3.74) uIU/mL 2.38 Urine Color (Yellow) Urine Clarity (Clear) Urine pH (5-8) Ur Specific Simms (1.005-1.025) Urine Protein (Negative) mg/dL Urine Ketones (Negative) mg/dL Urine Blood (Negative) Urine Nitrite (Negative) Urine Bilirubin (Negative) Urine Urobilinogen (Up TO 0.2) EU/dL Ur Leukocyte Esterase (Negative) Urine Glucose (Negative) mg/dL COVID-19 Source SARS-CoV-2 (PCR) (Negative) Range/Units 05/15/21 05/15/21 05/15/21 09:35 09:40 11:50 WBC (4.4-10.8) 10^3/uL RBC (4.36-5.78) 10^6/uL Hgb (13.5-17.5) g/dL Hct (40.0-50.0) % MCV (80-95) fL MCH (27.0-33.0) pg MCHC (32.0-36.0) % RDW (11.8-14.1) % Plt Count (130-400) 10^3/uL MPV (8.0-11.0) fL Immature Gran % Neutrophils % Lymphocytes % Monocytes % Eosinophils % Basophils % Nucleated RBC % % Absolute Neutrophils (1.2-6.7) 10^3/uL Absolute Lymphocytes (1.2-3.4) 10^3/uL Absolute Monocytes (0.1-0.8) 10^3/uL Absolute Eosinophils (0.0-0.7) 10^3/uL Absolute Basophils (0.0-0.2) 10^3/uL D-Dimer (<500) ng/mlFEU Sodium (136-145) mmol/L Potassium (3.5-5.1) mmol/L Chloride (98-107) mmol/L Carbon Dioxide (21.0-32.0) mmol/L Anion Gap (3-11) mmol/L BUN (7-18) mg/dL Creatinine (0.70-1.30) mg/dL Estimated GFR/1.73 m2 (mL/min/1.73m2) Glucose (74-106) mg/dL Calcium (8.5-10.1) mg/dL Magnesium (1.8-2.4) mg/dL Total Bilirubin (0.2-1.0) mg/dL AST (15-37) U/L ALT (16-63) U/L Alkaline Phosphatase (46-116) U/L Troponin I (<or=60) ng/L < 50 Total Protein (6.4-8.2) g/dL Albumin (3.4-5.0) g/dL TSH (0.36-3.74) uIU/mL Urine Color (Yellow) Yellow Urine Clarity (Clear) Clear Urine pH (5-8) 7.0 Ur Specific Simms (1.005-1.025) 1.015 Urine Protein (Negative) mg/dL Negative Urine Ketones (Negative) mg/dL Negative Urine Blood (Negative) Negative Urine Nitrite (Negative) Negative Urine Bilirubin (Negative) Negative Urine Urobilinogen (Up TO 0.2) EU/dL 0.2 Ur Leukocyte Esterase (Negative) Negative Urine Glucose (Negative) mg/dL 500 H COVID-19 Source Nasal/Nares SARS-CoV-2 (PCR) (Negative) Negative ECG Data Attestation: I personally reviewed and interpreted this ECG (s) as follows: Interpretation: Please see official report from Dr. Seals. Sinus rhythm, ventricular rate of 69. Right bundle branch block. No ischemic changes HPI General Mode of arrival: EMS. Date/Time Provider Initiated Documentation: 05/15/21 08:47. Limitations to Documentation: no limitations. Information obtained by: patient and EMS. HPI Narrative: This is a 65-year-old gentleman, past medical history of CAD, COPD, GERD, hypertension, diabetes, baseline balance issues, chronic low back pain, presenting to the ER for evaluation of palpitation. Patient reports a sensation of rapid heart rate intermittently now for at least a year, when this happens it takes his breath away, makes him feel generally weak which makes his baseline balance issues worse. He states this morning his symptoms began around 4 AM while making lunch. He states at rest he feels well. He states the symptoms have been going on for quite some time, worse this morning which prompted his ER visit. He tells me he has been evaluated for this multiple times both in the ER and through his primary care provider, no clear diagnosis made and he is increasingly frustrated. He denies recent illness or trauma. Denies headache, visual changes, neck pain, chest pain, cough, abdominal pain, nausea, vomiting, focal weakness, numbness or tingling. No medications given prior to arrival Related Data Home Medications Medication Instructions Recorded Confirmed aspirin 81 mg tablet,delayed 81 mg PO DAILY 04/03/18 05/15/21 release (Aspir-) citalopram 20 mg tablet 20 mg PO DAILY 04/03/18 05/15/21 loratadine 10 mg capsule 10 mg PO DAILY 04/03/18 05/15/21 metformin 500 mg tablet 500 mg PO DAILY tab 04/03/18 05/15/21 metoprolol succinate 25 mg 25 mg PO DAILY 04/03/18 05/15/21 tablet,extended release 24 hr omeprazole 20 mg capsule,delayed 20 mg PO DAILY 04/03/18 05/15/21 release furosemide 20 mg tablet (Lasix) 20 mg PO DAILY 09/01/18 05/15/21 lisinopril 20 1 tab PO DAILY 09/01/18 05/15/21 mg-hydrochlorothiazide 12.5 mg tablet multivitamin with minerals-ferrous 1 mg PO DAILY PRN tab 09/01/18 05/15/21 sulfate 4.5 mg iron tablet (One Daily Multivitamins with Minerals) ibuprofen 200 mg tablet 800 mg PO PRN PRN 10/06/18 05/15/21 atorvastatin 40 mg tablet (Lipitor) 40 mg PO QPM #0 tab 06/08/20 05/15/21 empagliflozin 10 mg tablet 10 mg PO DAILY tab 06/30/20 05/15/21 (Jardiance) ticagrelor 90 mg tablet (Brilinta) 90 mg PO BID tab 06/30/20 05/15/21 budesonide-formoterol HFA 160 2 puff INHALATION BID 03/05/21 05/15/21 mcg-4.5 mcg/actuation aerosol inhaler (Symbicort) fluticasone propionate 50 1 spray INTRANASAL BID 03/05/21 05/15/21 mcg/actuation nasal spray,suspension (Flonase Allergy Relief) nitroglycerin 0.4 mg sublingual 0.4 mg SUBLINGUAL ONCE 03/05/21 05/15/21 tablet Previous Rx's Medication Instructions Recorded atorvastatin 40 mg tablet (Lipitor) 40 mg PO QPM #0 tab 06/08/20 Allergies Allergy/AdvReac Type Severity Reaction Status Date / Time isosorbide AdvReac headache, Verified 05/15/21 08:59 ,lightheaded General Stated Complaint: Palpitatns EMILIANO: 3 Review of Systems Constitutional Constitutional: Denies fatigue, Denies fever(s), Denies headache(s) and Reports weakness (General) Eyes Eyes: Denies change in vision ENT Ears, Nose, Mouth, and Throat: Denies headache(s) and Denies neck pain Cardiovascular Cardiovascular: Denies chest pain, Reports palpitations and Reports dyspnea Respiratory Respiratory: Reports dyspnea Gastrointestinal Gastrointestinal: Denies abdominal pain, Denies nausea and Denies vomiting Genitourinary Genitourinary: Denies dysuria Musculoskeletal Musculoskeletal: Denies neck pain, Denies numbness and Denies tingling Integumentary/Breasts Skin/Breast: Denies rash Neurologic Neurologic: Denies headache(s), Denies numbness, Denies tingling and Reports weakness (General) Psychiatric Psychiatric: Reports anxiety Endocrine Endocrine: Denies fatigue and Reports palpitations Hematologic/Lymphatic Hematologic/Lymphatic: Denies easy bleeding and Denies easy bruising PFSH All Active Problems (Updated 05/15/21 @ 13:12 by CHAVA Avilez) Hand pain, right (Acute) Right shoulder pain (Acute) Palpitations (Acute) Astigmatism with presbyopia (Acute) Cataract (Chronic) Glaucoma (Chronic) Lipoma (Acute) ED (erectile dysfunction) (Acute) Obstructive sleep apnea (Chronic) CAD (coronary artery disease) (Chronic) 2120NSTEMI , treated at [facility], stent to RCA which was a revision, followed by cardiology at [facility] COPD (chronic obstructive pulmonary disease) (Chronic) GERD (gastroesophageal reflux disease) (Chronic) Hypertension (Chronic) Type 2 diabetes mellitus (Chronic) 122/[id number] foot Hyperlipidemia (Chronic) Medical History Balance problems Chest pain Chest pain Chronic cough Chronic low back pain Depression Dyslipidemia GERD (gastroesophageal reflux disease) H/O coronary angiogram History of non-insulin dependent diabetes mellitus Hypertension Positive cardiac stress test (~2016) PVD (peripheral vascular disease) Surgical History Bone spur of foot Excision Hx of heart artery stent SYLVESTER to D1 and RCA Hx of inguinal hernia repair Hx of umbilical hernia repair S/P colonoscopy done 10/06/18 Family History Mother Skin cancer Diabetes Hyperlipidemia Stroke Father , 83 Diabetes Heart disease Sister No problems noted. Sister , 50 No problems noted. Brother No problems noted. Brother No problems noted. Brother No problems noted. Social History Smoking/Tobacco Use Status: Former Tobacco Use tobacco type: cigarettes Quit Date: 03/24/97 Tobacco: How many years used: 5 Second Hand Exposure: Yes Smoking risk assessment performed?: Yes Alcohol Intake: former Drug use: Never Substance use type: does not use Caregiver/Support person: No Household members: significant other Housing: house Communication Needs: None Do you need help understanding health information?: Often Pets and animals: Yes Pets and animals: dog(s) Sexually active: Yes Do you think of yourself as: lesbian/burton/homosexual Current gender identity: male What is your relationship status?: living with partner How often do you talk on the phone with friends or family?: decline to answer How often do you get together with friends or relatives?: decline to answer How often do you attend judaism or episcopalian services?: decline to answer Do you belong to any clubs or organized social groups?: no Panel score (0-1 are the most socially isolated patients): 1 What type of physical activity do you participate in: none and walking Duration: 30-45 minutes/day Frequency: 1-2 times per week Franca/Worship: Zoroastrianism Special franca needs: No Seatbelt use: always Helmet use: No Drive intox or ride w/intox electric mule driver: No Do you feel safe at home: Yes Do you feel safe in your relationship?: Yes Exam Const General: cooperative, healthy appearing, comfortable, no acute distress and anxious (Slightly) Orientation: alert, awake and oriented x3 HENMT Head: normal to inspection, normocephalic and atraumatic Face and sinus: normal facial exam Mouth: moist mucous membranes Eyes Conjunctivae: conjunctivae normal Neck Neck: normal visual inspection, full ROM, trachea midline, supple and nontender Resp Effort & Inspection: normal respiratory effort and able to speak in complete sentences Auscultation: clear to auscultation bilaterally Cardio Rate: regular rate Rhythm: regular rhythm GI Inspection: obesity Palpation: soft and nontender Back/Spine/Pelvis Back: No back tenderness Skin General skin exam: no rashes or lesions noted Neuro General: patient alert, patient awake, patient oriented x3, moves all extremities and no focal motor deficits Cognition: normal cognition Speech: speech normal Gait: normal gait Motor: muscle tone normal throughout and strength 5/5 throughout Sensory Exam: no sensory deficits noted Extrem General: normal to inspection, full ROM, capillary refill normal, no pedal edema and no calf tenderness Psych Appearance: grossly normal Mental Status: mental status grossly normal Course Vital Signs Vital signs: Vital Signs Temperature 36.7 C 05/15/21 08:44 Pulse 73 05/15/21 08:44 Respiratory Rate 18 05/15/21 08:44 Blood Pressure 140/82 05/15/21 08:44 Pulse Oximetry 98 05/15/21 08:44 Temperature 36.7 C 05/15/21 08:44 Temperature Source Temporal Artery Scan 05/15/21 08:44 Pulse 73 05/15/21 08:44 Respiratory Rate 18 05/15/21 08:44 Respiratory Effort Non-Labored 05/15/21 08:47 Blood Pressure 140/82 05/15/21 08:44 Blood Pressure Position Sitting 05/15/21 08:44 Pulse Oximetry 98 05/15/21 08:44 Oxygen Delivery Method Room Air 05/15/21 08:44 Oxygen Flow Rate 0 05/15/21 08:44
[2021-05-15] MEDS: Normal Saline 1,000 ML 1000 ML IV (09:11)
[2021-05-15 09:20] LABS: Abs Immature Grans 0.02 10^3/uL (0.0-0.06); Absolute Basophil Count 0.04 10^3/uL (0.0-0.2); Absolute Eosinophil Count 0.22 10^3/uL (0.0-0.7); Absolute Lymphocyte Count 1.26 10^3/uL (1.2-3.4); Absolute Monocyte Count 0.36 10^3/uL (0.1-0.8); Absolute Neutrophil Count 3.31 10^3/uL (1.2-6.7); Basophils % 0.8; Eosinophils % 4.2; HCT 41.1 % (40.0-50.0); HGB 13.1 g/dL (13.5-17.5); Immature Grans % 0.4; Lymphocytes % 24.2; MCH 27.2 pg (27.0-33.0); MCHC 31.9 % (32.0-36.0); MCV 85.4 fL (80-95); MPV 9.4 fL (8.0-11.0); Monocytes % 6.9; Neutrophils % 63.5; Nucleated RBC 0 %; Platelet Count 214 10^3/uL (130-400); RBC 4.81 10^6/uL (4.36-5.78); RDW 13.5 % (11.8-14.1); RDW-SD 42.1 fL; WBC 5.21 10^3/uL (4.4-10.8)
[2021-05-15 09:40] LABS: Source Nasal/Nares
[2021-05-15 09:46] LABS: ALT 31 U/L (16-63); AST 20 U/L (15-37); Albumin 4.1 g/dL (3.4-5.0); Alkaline Phosphatase 77 U/L (46-116); Anion Gap 11.4 mmol/L (3-11); BUN 30 mg/dL (7-18); Bilirubin, Total 0.5 mg/dL (0.2-1.0); CO2 25.6 mmol/L (21.0-32.0); CREATININE 1.2 mg/dL (0.70-1.30); Calcium 8.9 mg/dL (8.5-10.1); Chloride 102 mmol/L (98-107); Glucose 129 mg/dL (74-106); Magnesium 2.1 mg/dL (1.8-2.4); Sodium 139 mmol/L (136-145); TSH (W/Ref FT4) 2.38 uIU/mL (0.36-3.74); Troponin I < 50 ng/L (<or=60)
[2021-05-15 09:51] LABS: D-Dimer 493 ng/mlFEU (<500)
[2021-05-15 09:57] LABS: Total Protein 7.6 g/dL (6.4-8.2)
[2021-05-15 10:00] LABS: Bilirubin Negative (Negative); Blood Negative (Negative); Clarity Clear (Clear); Glucose 500 mg/dL (Negative); Ketones Negative (Negative); Leukocyte Esterase Negative (Negative); Nitrite Negative (Negative); Specific Gravity 1.015 (1.005-1.025); Urobilinogen 0.2 EU/dL (Up TO 0.2)
[2021-05-15 10:32] LABS: COVID-19 PCR Negative (Negative)
--- NOTE | 2021-05-15 11:34 | NUR.NOTE ---
Pt ate 100% of a carb controlled lunch and walked to the bathroom with stand by guarding only, pt tolerated this well, pt states he feels better.
[2021-05-15 12:17] LABS: Troponin I < 50 ng/L (<or=60)
== END 2021-05-15 13:31 | disposition home or self-care (01) ==
PROVIDERS: Emergency Provider Physician Assistant; PCP Family Medicine
DX: R00.2 Palpitations (principal); Z20.822 Contact with and (suspected) exposure to COVID-19; R53.1 Weakness
CPT/HCPCS: 36415; 80053; 87635; 93005; 96360; 99283; 99284; 71045; 81003; 83735; 84443; 84484; 85025; 85379; 93010; 93225

== ENCOUNTER 2021-05-15 11:56 | Outpatient (RCR) | payer OTHER, MEDICAID, SELFPAY ==
--- NOTE | 2021-05-15 10:45 | HOLTER_ITS ---
APPROVED REPORT Conclusion This is a 48-hour Holter monitor ordered for palpitations Predominant rhythm was sinus. Average heart rate was 69. Minimum was 53, maximum 142 There were very rare atrial premature beats There were occasional ventricular ectopic beats There was no atrial fibrillation, no high-grade AV block, no pauses greater than 3 seconds There were no apparent patient symptoms
== END 2021-05-21 23:59 | disposition home or self-care (01) ==
LOC: RT 11:56
PROVIDERS: PCP Family Medicine; Visit Provider Physician Assistant
DX: R00.2 Palpitations (principal); I49.3 Ventricular premature depolarization
CPT/HCPCS: 93225; 93226

== ENCOUNTER 2021-05-17 13:58 | Outpatient (CLI) | payer OTHER, MEDICAID, SELFPAY ==
--- NOTE | 2021-05-17 13:45 | RT.EKG_ITS ---
APPROVED REPORT Exam: Resting ECG Reason for Exam: ED F/u Patient Location: O HR:68 bpm ECG Measurements Heart Rate 68 AXIS OH 166 P 53 QRSd 126 QRS -31 QT 420 T 32 QTc 447 Conclusion Sinus rhythm...normal P axis, V-rate 60- 99 Right bundle branch block...QRSd>120, terminal axis(90,270)
== END 2021-05-17 13:59 | disposition home or self-care (01) ==
LOC: DI.CM 13:59
PROVIDERS: PCP Family Medicine; Visit Provider Emergency Medicine
DX: R00.2 Palpitations (principal); R94.31 Abnormal electrocardiogram [ECG] [EKG]; I45.10 Unspecified right bundle-branch block
CPT/HCPCS: 93010

== ENCOUNTER 2021-05-29 11:32 | Outpatient (CLI) | payer OTHER, MEDICAID, SELFPAY | END 2021-05-29 11:33 | LOC: CARDO 06-21 16:05 | PROVIDERS: PCP Family Medicine; Referring Provider Physician Assistant; Visit Provider Internal Medicine Cardiovascular Disease | DX: R00.2 Palpitations (principal); I49.3 Ventricular premature depolarization | CPT/HCPCS: 93227 ==

== ENCOUNTER → 2021-06-28 10:49 | Outpatient (BNVA) | payer OTHER, MEDICAID, SELFPAY | PROVIDERS: PCP Family Medicine; Referring Provider Family Medicine; Visit Provider Internal Medicine Cardiovascular Disease | DX: I25.110 Atherosclerotic heart disease of native coronary artery with unstable angina pectoris (principal); I10 Essential (primary) hypertension; E78.5 Hyperlipidemia, unspecified | CPT/HCPCS: 99214; 99213 ==

== ENCOUNTER 2021-07-20 01:49 | Outpatient (CLI) | payer OTHER, MEDICAID, SELFPAY ==
[2021-07-20 08:58] LABS: Hemoglobin A1C 6.9 % (<5.7)
[2021-07-20 09:41] LABS: ALT 35 U/L (16-63); AST 16 U/L (15-37); Albumin 4.2 g/dL (3.4-5.0); Alkaline Phosphatase 76 U/L (46-116); Anion Gap 7.8 mmol/L (3-11); BUN 23 mg/dL (7-18); Bilirubin, Total 0.6 mg/dL (0.2-1.0); CO2 29.2 mmol/L (21.0-32.0); CREATININE 1.1 mg/dL (0.70-1.30); Calcium 8.8 mg/dL (8.5-10.1); Calculated LDL 56 mg/dL (<100); Chloride 101 mmol/L (98-107); Cholesterol 125 mg/dL (<200); Glucose 142 mg/dL (74-106); HDL Cholesterol 33 mg/dL (40-60); Potassium 4.1 mmol/L (3.5-5.1); Sodium 138 mmol/L (136-145); Total Protein 7.2 g/dL (6.4-8.2); Triglyceride 183 mg/dL (<150)
[2021-07-20 09:53] LABS: COMMENT (LAB VIEW ONLY) 29.17 mg/dL; Microalb ug/mg Crea 6.9 ug/mg Cr
[2021-07-20 18:56] LABS: PSA, Screening 0.4 ng/mL (<=4.5)
[2021-07-23 09:57] LABS: Hepatitis C Ab w Rflx HCV PCR Negative (Negative)
[2021-07-23 10:03] LABS: HIV-1/2 Ag & Ab Screen Negative (Negative)
== END 2021-07-20 01:50 | disposition home or self-care (01) ==
LOC: LBO 01:49
PROVIDERS: PCP Family Medicine; Visit Provider Family Medicine
DX: E11.9 Type 2 diabetes mellitus without complications (principal); E78.5 Hyperlipidemia, unspecified; I10 Essential (primary) hypertension; Z12.5 Encounter for screening for malignant neoplasm of prostate; Z11.59 Encounter for screening for other viral diseases; Z11.4 Encounter for screening for human immunodeficiency virus [HIV]
CPT/HCPCS: 36415; 80053; 80061; 84153; 86803; 87389; 82043; 82570; 83036

== ENCOUNTER → 2021-10-08 00:06 | Outpatient (CLI) | payer OTHER, MEDICAID, SELFPAY ==
--- NOTE | 2021-10-08 07:00 | DI.MRI_ITS ---
Exam(s) MR UPPER JOINT RT WO EXAM: MR UPPER JOINT RT WO CLINICAL HISTORY: persistent shoulder pain, s/p fall-6 months ago,internal impingement,? rota. TECHNIQUE: Multiplanar multisequence MRI was performed. COMPARISON: Plain films 05 May 2021 FINDINGS: Exam is limited by patient motion. Bones: There is no fracture or contusion pattern. AC joint: The acromioclavicular joint shows mild spurring. There is fluid in the subacromial subdeltoid bursa, subcoracoid bursa as well as within the glenohume ral joint. Rotator Cuff: No muscle atrophy. The supraspinatus tendon shows thickening and intermediate signal but no definite focal tear. The in fraspinatus is unremarkable. The subscapularis and teres minor are normal. Labrum and biceps anchor: The biceps tendon is located. The anchor is grossly intact. The labrum is not well seen due to motio n. IMPRESSION: Limited exam due to motion. Supraspinatus tendinosis. Joint effusion. DATA REPOSITORY:
== END ==
PROVIDERS: PCP Nurse Practitioner Family; Visit Provider Family Medicine
DX: M75.41 Impingement syndrome of right shoulder; M25.411 Effusion, right shoulder; M67.813 Other specified disorders of tendon, right shoulder; W19.XXXA Unspecified fall, initial encounter
CPT/HCPCS: 73221

== ENCOUNTER → 2021-11-21 09:29 | Outpatient (BNVA) | payer OTHER, MEDICAID, SELFPAY | PROVIDERS: PCP Nurse Practitioner Family; Referring Provider Nurse Practitioner Family; Visit Provider Student in an Organized Health Care Education/Training Program | DX: M75.21 Bicipital tendinitis, right shoulder (principal); S46.011A Strain of muscle(s) and tendon(s) of the rotator cuff of right shoulder, initial encounter; W19.XXXA Unspecified fall, initial encounter; E11.42 Type 2 diabetes mellitus with diabetic polyneuropathy; I25.110 Atherosclerotic heart disease of native coronary artery with unstable angina pectoris; Z95.5 Presence of coronary angioplasty implant and graft; M75.51 Bursitis of right shoulder | CPT/HCPCS: 20610; 99204; 99214; J1030 ==

== ENCOUNTER → 2022-01-08 13:53 | Outpatient (BNVA) | payer OTHER, MEDICAID, SELFPAY | PROVIDERS: PCP Nurse Practitioner Family; Visit Provider Internal Medicine Cardiovascular Disease | DX: I25.110 Atherosclerotic heart disease of native coronary artery with unstable angina pectoris (principal); I10 Essential (primary) hypertension; E78.5 Hyperlipidemia, unspecified; Z95.5 Presence of coronary angioplasty implant and graft; R60.0 Localized edema | CPT/HCPCS: 99213 ==

== ENCOUNTER → 2022-01-23 10:22 | Outpatient (BNVA) | payer OTHER, MEDICAID, SELFPAY | PROVIDERS: PCP Nurse Practitioner Family; Referring Provider Nurse Practitioner Family; Visit Provider Student in an Organized Health Care Education/Training Program | DX: S46.011D Strain of muscle(s) and tendon(s) of the rotator cuff of right shoulder, subsequent encounter (principal); X58.XXXD Exposure to other specified factors, subsequent encounter; M75.51 Bursitis of right shoulder; M75.21 Bicipital tendinitis, right shoulder | CPT/HCPCS: 99214 ==

== ENCOUNTER 2022-04-11 08:57 | Day surgery (SDC) | payer OTHER, MEDICAID, SELFPAY ==
[2022-04-11] VITALS (14 sets, daily range): BP systolic 116–155; BP diastolic 64–98; PULSE 51–73; RESP 10–24; TEMP 36.4–36.6; O2SAT 94–98; BMI 35.2
--- NOTE | 2022-04-11 09:48 | ANES.PREOP_ITS ---
General Info Date of Service Date Performed: 04/11/22 Height: 5 ft 8 in Weight: 104.9 kg Body Mass Index (BMI): 35.2 Surgical Procedure: Operation Date: 04/11/22 11:10 Proposed Procedure Side Surgeon p Shoulder Possible Rotator Cuff Arthroscopic w/Extensive Debridement,Biceps Tenodesis,Subacromial Decompression Right Gurinder Villa MD Meds Allergies and Home Medications Allergies Allergy/AdvReac Type Severity Reaction Status Date / Time isosorbide AdvReac headache, Verified 04/11/22 09:47 ,lightheaded Home Medication Medication Instructions Recorded aspirin 81 mg tablet,delayed 81 mg PO DAILY 04/03/18 release (Aspir-) loratadine 10 mg capsule 10 mg PO DAILY 04/03/18 fluticasone propionate 50 1 spray intranasal BID 03/05/21 mcg/actuation nasal spray,suspension (Flonase Allergy Relief) nitroglycerin 0.4 mg sublingual 0.4 mg sublingual ONCE #90 tabs 06/28/21 tablet citalopram 20 mg tablet 20 mg PO DAILY #90 tabs 07/25/21 citalopram 40 mg tablet 40 mg PO DAILY #90 tabs 07/25/21 budesonide-formoterol HFA 160 2 puff inhalation BID #3 ea 08/31/21 mcg-4.5 mcg/actuation aerosol inhaler (Symbicort) empagliflozin 10 mg tablet 10 mg PO DAILY #90 tabs 11/21/21 (Jardiance) metformin 500 mg tablet 500 mg PO BID 11/21/21 blood sugar diagnostic (OneTouch #300 ea 12/14/21 Verio test strips) atorvastatin 40 mg tablet (Lipitor) 40 mg PO QPM #90 tabs 12/24/21 omeprazole 20 mg capsule,delayed 20 mg PO DAILY #90 caps 02/07/22 release furosemide 20 mg tablet (Lasix) 20 mg PO BID #180 tabs 02/25/22 metoprolol succinate 50 mg 50 mg PO DAILY #90 tabs 02/25/22 tablet,extended release 24 hr lisinopril 20 mg tablet 20 mg PO DAILY #90 tabs 04/03/22 sildenafil 100 mg tablet 100 mg PO DAILY PRN sexual 04/03/22 activity #12 tabs Current Visit Medications: Current Medications Generic Name Dose Route Start Last Admin Trade Name Freq PRN Reason Stop Dose Admin Ringer's Solution 1,000 mls @ 30 mls/hr 04/11/22 06:00 IV 05/10/22 23:59 [facility] Cefazolin Sodium/Dextrose 2 gm in 50 mls @ 100 mls/hr 04/11/22 06:00 Ancef Duplex IVPB 04/11/22 16:00 PREOP LEANNA IV Miscellaneous Supplies 1 each 04/11/22 06:00 Iv Access IV 05/10/22 23:59 DIRECTED LEANNA Sodium Chloride 0 ml 04/11/22 06:00 Normal Saline Flush 10 Ml Syr IV 05/10/22 23:59 PRN PRN Sodium Chloride 0 ml 04/11/22 06:00 Normal Saline 10 Ml Vial IJ 05/10/22 23:59 DIRECTED PRN Sterile Water 0 ml 04/11/22 06:00 Water,Injection,Sterile 10 Ml Vial IJ 05/10/22 23:59 DIRECTED PRN PFSH Active Problems Active Problems: Problem Status Onset Code CAD (coronary artery disease) I25.10 GERD (gastroesophageal reflux disease) K21.9 Hypertension I10 Type 2 diabetes mellitus E11.9 Hyperlipidemia E78.5 Obstructive sleep apnea G47.33 ED (erectile dysfunction) N52.9 Lipoma D17.9 Depression with anxiety F41.8 Obesity E66.9 Asthma J45.909 Right shoulder pain M25.511 Bilateral lower extremity edema R60.0 Traumatic tear of right rotator cuff ~03/2021 S46.011A Tendonitis of long head of biceps brachii of right shoulder M75.21 Bursitis of right shoulder M75.51 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 Itching L29.9 Medical History Medical History Balance problems Chest pain Chronic cough Chronic low back pain Dyslipidemia GERD (gastroesophageal reflux disease) H/O coronary angiogram History of non-insulin dependent diabetes mellitus Hypertension Positive cardiac stress test (~2015) PVD (peripheral vascular disease) Surgical History Surgical History (Updated 04/11/22 @ 09:47 by Jayme Plaza) Bone spur of foot Excision History of uvulectomy Hx of heart artery stent SYLVESTER to D1 and RCA Hx of inguinal hernia repair Hx of umbilical hernia repair S/P colonoscopy done 10/06/18 Tobacco Smoking/Tobacco Use Status: Former Tobacco Use Second hand exposure: Yes Alcohol Alcohol Intake: former Substance Use Substance use: Never Substance use type: does not use Vital Signs and Lab Results Vital Signs Most Recent Vital Signs in EMR: Most Recent Vital Signs Temp Pulse Resp BP Pulse Ox 36.6 C 57 L 16 144/93 H 98 04/11/22 09:37 04/11/22 09:37 04/11/22 09:37 04/11/22 09:37 04/11/22 09:37 Lab Results Blood Type / Crossmatch: No Data to Display Complete Blood Count: No Data to Display Complete Metabolic Panel: No Data to Display Liver Function Panel: No Data to Display Coagulation Panel: No Data to Display Cardiac Panel: No Data to Display Arterial Blood Gas: No Data to Display Venous Blood Gas: No Data to Display Pancreas Panel: No Data to Display Thyroid Panel: No Data to Display Infectious Disease: No Data to Display Blood Cultures: No Data to Display Toxicology Panel: No Data to Display Imaging and Studies Imaging and Studies Study information below may be from another EMR and interpreted by another provider. Please see original notes in EMR for more complete details. EKG Summary: 05/15: sinus, RBBB Stress Test Summary: 05/2020: 6 mets, no symptoms of ischemia, ECG nondiagnostic. MPI EF 57%, no WMA, small area on the basal to mid lateral wall with reversible perfusion defect suggestive of ischemia. Echocardiogram Summary: 05/2020: LV 65%, RVfxn normal. valves without issues. Cardiac Catheterization Summary: 05/2020: angioplasty/atherectomy, stent placement in RCA. Pulmonary Function Summary: 11/2017: mild restrictive dz. Anesthesia Assessment and Plan Anesthesia History Personal History: Delayed Emergence Family History: No Family History of Anesthesia Complications Exercise Tolerance Exercise Tolerance: Metabolic Equivalents>4 Cardiac & Pulmonary Exam Cardiac Exam: Normal S1/S2 Heart Sounds Pulmonary Exam: Clear Bilateral Breath Sounds Implantable Cardiac Device Does patient have a Pacemaker or an ICD?: No Airway Exam Known Difficult Airway: No Mallampati Class: 2 Mouth Opening: Normal (> 3cm) Thyromental Distance: Greater than 3 cm Neck Range of Motion: Full ROM Neck Circumference: Normal Teeth Condition: Edentulous ASA Classification ASA Score: ASA 3 Emergency Case?: No NPO Status NPO Status: NPO Clears >2 hours, Solids >8 hours Anesthesia Plan Resuscitation Status: Full Code Anesthesia Technique: General Anesthesia Airway Planned: Endotracheal Tube Pain Management: Surgeon and patient request nerve block Monitors Used: Standard Monitors Preoperative Comments:: 66 yo male for shoulder scope. Sig PMHx: CAD with SYLVESTER to RCA and D1 (metop, NTG), GERD (omeprazole, well controlled), HTN (lisinopril), RAMANDO, DM2 (a1c 6.4 02/12, metformin, empagliflozin, neuropathy), asthma, PVD, former smoker, former EtOH. Previous Anes: - colo with prop, no issues.
[2022-04-11] MEDS: Lactated Ringers 1,000 ML 30 ML IV (10:04)
--- NOTE | 2022-04-11 12:20 | NUR.NOTE ---
Addendum entered by Kae Ramos RN 04/11/22 12:30: Need for EKG discussed with surgeon and ASSISTANT WINEMAKER. Decision made to proceed to OR. Original Note: 1217 Pt complains that he is having trouble breathing and has chest pain under his left breast. Pt A0x3. Pt is moving air well, oxygen saturation is 96% on RA. 1221 ASSISTANT WINEMAKER out to see patient. RT paged to perform EKG Nursin
--- NOTE | 2022-04-11 12:27 | NUR.NOTE ---
3343 Tre Amezquita CRNA, Dr. Villa at bedside to assess pt. Pt continues to complain of difficulty breathing when he takes a deep breath in. Pt states he is having chest pain under his left breast upon inspiration. He states that this is different than his typical angina pain at home. Tre Tamayo CRNA used ultrasound to view lung structures. Nursing Note:
[2022-04-11] MEDS: ceFAZolin 2 GM/50 ML BAG IVPB (12:48)
--- NOTE | 2022-04-11 13:05 | W.ANESNERVE ---
Nerve Block Single Injection Procedure Date and Time Date Performed: 04/11/22 Procedure Start: 11:55 Location Where Procedure Performed Procedure Location: Day Surgery Unit Reason Performed: Postoperative Analgesia Requesting Provider: Gurinder Villa Timeout Performed Timeout Performed: Yes Monitoring Used ECG, Blood Pressure and SpO2 Sterility Sterility: Hand Hygiene, Surgical Cap, Surgical Mask, Sterile Gloves and Chlorhexidine Sedation Given During Procedure Sedation Given (Indicate Dose Given): Versed IV Dose:: 1 mg Patient Mental Status Patient Mental Status: Awake Nerve Block 1st Nerve Block: Laterality: Right Block Type: Interscalene Ultrasound Image Saved?: Yes Needle / Catheter Used: 100mm SonoPlex II Local Anesthetic Bolus (Indicate Dose Given): Injected in 3-5ml increments after negative blood aspiration, Bupivacaine 0.5% Dose:: 15 mL and Exparel Dose:: 10 mL Additives (Indicate Dose Given): None Ultrasound: Sterile probe cover and gel used Nerve Stimulator: Supplement to Ultrasound use and No twitch or parasthesia noted < 0.5 mA Paresthesia: None Procedure Tolerated: Other Procedure Outcome: Successful Procedure Comment: approximately 10 min after DSU RN to get me with concerns of pt breathing status. Pt endorses difficultly breathing and pointing to his right chest. He is trying to breath deeply, and with his deep breaths describes pain at the peak of his inspiration. He states that this pain is difference then his angina that he gets. an US was performed of his right lung and there was no obvious pneumo. After our discussion he was visable more calm and was no longer feeling like his breathing was as bad. Performed By: Tre Amezquita
--- NOTE | 2022-04-11 13:44 | W.PM.DSUDISC ---
Date of service: 04/11/22 Time of Service: 16:00 Discharge Plan Disposition Patient Disposition: Home Discharge Details Attending Provider: Gurinder Villa Primary Care Provider: Ed Peter Home Meds and New Rx's Prescriptions: New oxycodone 5 mg tablet 5 - 10 mg PO Q4H MDD 30 mg PRN (Reason: moderate to severe pain) Qty: 12 0RF Continued aspirin [Aspir-81] 81 mg tablet,delayed release (DR/EC) 81 mg PO DAILY loratadine 10 mg capsule 10 mg PO DAILY metformin 500 mg tablet 500 mg PO BID Rx Instructions: 500mg in am, 1000mg in the evening omeprazole 20 mg capsule,delayed release(DR/EC) 20 mg PO DAILY Qty: 90 3RF nitroglycerin 0.4 mg tablet, sublingual 0.4 mg sublingual ONCE Qty: 90 3RF Rx Instructions: as a single dose; administer 5-10 minutes before situation known to precipitate angina attack methylprednisolone acetate [Depo-Medrol] 40 mg/mL suspension 40 mg intra-articular ONCE Qty: 1 0RF fluticasone propionate [Flonase Allergy Relief] 50 mcg/actuation spray,suspension 1 spray intranasal BID Rx Instructions: administer into each nostril citalopram 20 mg tablet 20 mg PO DAILY Qty: 90 3RF Rx Instructions: in addition to the 40 mg dose citalopram 40 mg tablet 40 mg PO DAILY Qty: 90 3RF budesonide-formoterol [Symbicort] 160-4.5 mcg/actuation HFA aerosol inhaler 2 puff inhalation BID Qty: 3 3RF Jardiance 10 mg tablet 10 mg PO DAILY Qty: 90 3RF (DME) OneTouch Verio test strips Strip See Rx Instructions .Route Qty: 300 12RF Rx Instructions: test three times daily atorvastatin [Lipitor] 40 mg tablet 40 mg PO QPM Qty: 90 3RF furosemide [Lasix] 20 mg tablet 20 mg PO BID Qty: 180 3RF metoprolol succinate 50 mg tablet extended release 24 hr 50 mg PO DAILY Qty: 90 3RF sildenafil 100 mg tablet 100 mg PO DAILY PRN (Reason: sexual activity) Qty: 12 11RF Rx Instructions: administer 30 minutes to 4 hours before activity lisinopril 20 mg tablet 20 mg PO DAILY Qty: 90 3RF Discharge Instructions Additional Instructions: Surgery: Right shoulder arthroscopy with rotator cuff repair, biceps tenotomy, extensive debridement, and subacromial decompression. Activity: For 6 weeks, you should keep your arm at your side in a neutral position most of the time as best possible except for physical therapy. Do not try to lift or raise your arm using your own muscles. You should use the sling whenever you are out of the house. You may have to adjust the abduction pillow or remove it for comfort. At home it is best to remove the sling and rest the arm on a pillow at your side or support the operative side with your other hand. You may allow the arm to dangle at your side. A physical therapy prescription will be sent electronically to begin in about 3 weeks. Prescriptions: Resume home aspirin 81 mg daily tomorrow Oxycodone 5 mg take 1-2 every 4-6 hours as needed for severe pain You may use [id number] Tylenol (acetaminophen) as needed for mild pain. You may try [id number] diphenhydramine (Benadryl) 25-50 mg nightly as a sleep aid Dressings: Remove shoulder bandage after 3 days. Leave the sticky Steri-Strips in place until they fall off or remove them after you shower. Cover the incisions with Band-Aids or leave them open to air. You may shower after 5 days. Follow-up: 10-[address] Villa You may take off the leg compression stockings this evening at home. You may also leave them on a few days longer if you have a history of leg swelling or edema. Let us know right away if you develop any redness, drainage, fevers, chest pain, or trouble breathing. Do not drink alcohol or drive for at least 24 hours after anesthesia. Please call the office during business hours with any questions or concerns. DS: Diagnosis Discharge Diagnosis (1) Traumatic tear of right rotator cuff: Status: Acute (2) Tendonitis of long head of biceps brachii of right shoulder: Status: Acute (3) Bursitis of right shoulder: Status: Acute
[2022-04-11] MEDS: EPINEPHrine 30 MG/30 ML VIAL (14:03)
--- NOTE | 2022-04-11 14:23 | W.ANESPOSTOP ---
Postoperative Evaluation Date, Time and Location Date Performed: 04/11/22 Time Performed: : Patient Location: PACU Vital Signs Most Recent Imported Vital Signs: Most Recent Vital Signs Temp Pulse Resp BP Pulse Ox 36.4 C L 58 L 19 120/75 96 04/11/22 14:10 04/11/22 14:10 04/11/22 14:10 04/11/22 14:10 04/11/22 14:10 Pain Score Most Recent Pain Score: Most Recent Pain Score Pain Level 0 04/11/22 14:10 Assessment Mental Status: Awake (Alert & Oriented to Patient Baseline) Airway and Respiratory Function: Patent airway with normal (patient baseline) respiratory exam Cardiovascular Function: Hemodynamically Stable Hydration Status: Adequately Hydrated Nausea & Vomiting: No Nausea or Vomiting Pain: Pt. Denies Any Pain Peripheral Nerve Block: Regional nerve block not resolved at time of post operative discharge
--- NOTE | 2022-04-11 16:48 | W.PM.OP ---
Date of service: 04/11/22 Time of Service: 13:00 Operative Note Operative Note DATE OF PROCEDURE: 04/11/22 PRE-OP DIAGNOSIS: Right: 1. Rotator cuff tear 2. LHB tendinopathy 3. Bursitis POST-OP DIAGNOSIS: same PROCEDURE: Right: 1. Rotator cuff repair, CPT# 25185. This involved repair of the supraspinatus using anchors and sutures to reattach the rotator cuff back to the footprint of the greater tuberosity. 2. Extensive debridement, CPT# 08111. This involved using arthroscopic hand instruments, power instruments, and radiofrequency instruments to release the long head of the biceps tendon, MGHL, and debride areas of labral tearing, synovitis, and chondromalacia about the biceps groove and anterior glenoid working within the glenohumeral joint anteriorly, superiorly and posteriorly. 3. Subacromial decompression with partial acromioplasty, CPT# 33607. This involved using arthroscopic power instruments and a radiofrequency wand to complete a bursectomy and resect acromiohumeral narrowing due to impinging undersurface acromion The rehab care assistant was medically required in order to help assist in techniques above, which require positioning the arm, holding the arthroscope, and manipulating multiple instruments and sutures at the same time. This cannot be done without the help of an experienced rehab care assistant. SURGEON: Gurinder Villa MEDICAL INSURANCE CLAIMS SPECIALIST: Felipa Limon ANESTHESIA TYPE: General LMA/ETT and Primary Nerve Block Refer to Anesthesia Record ESTIMATED BLOOD LOSS: 10 PATHOLOGY: none sent COMPLICATIONS: None Patient was transported to: PACU Patient's condition: stable Implants: Arthrex: 4.75mm SwiveLocks x 1 Indications: The patient was diagnosed with the above conditions and appropriately indicated for surgical intervention. Please see complete medical record for details. Findings: Exam under anesthesia: Good range of motion, no instability Glenohumeral joint: Significant anterior and rotator interval synovitis. Degenerative type anterior labral fraying with moderate anterior central glenoid chondromalacia. Moderately diffuse especially superior humeral head chondromalacia. Intact subscapularis. Long head biceps tendon with significant degenerative fraying, injection, and degenerative type SLAP tear. Far anterior small full-thickness supraspinatus rotator cuff tear that probably involve the rotator interval to just posterior to the biceps. Subacromial space: Significant synovitis. Narrowing and diminutive subacromial space due to acromiohumeral interval narrowing probably from chronic rotator cuff disease and undersurface acromial bone spurring. Diffuse mild to moderate rotator cuff fraying and injection. The only significant tear was far anterior supraspinatus probably involving the interval and supraspinatus tissue just about at the level of the biceps and slightly posterior. Not retracted. Reasonable quality. Procedure Description: In the operating room, general anesthesia was induced. Bilateral shoulders were examined. The patient was positioned in the beachchair position. All bony prominences were well-padded. Preoperative antibiotics were administered. The shoulder was prepped and draped in the usual sterile fashion. The correct patient, procedure, and side of the procedure were all verified prior to incision. Starting through the posterior portal a standard complete diagnostic arthroscopy was performed of the glenohumeral joint including inspection of the long head of the biceps, anterior and superior labrum, subscapularis tendon, supraspinatus and infraspinatus tendons, and axillary recess. The glenoid and humeral head cartilage as well as the posterior labrum were inspected from an anterior viewing portal. Significant findings and interventions noted above. Given comorbidities and poor tissue quality, the biceps tendon was released as part of a biceps tenotomy and allowed to retract itself with the stump resting at the superior aspect of the bicipital groove. The articular rotator cuff was largely intact except for a small full-thickness tear just above the biceps tendon and rotator interval. Starting through the posterior portal, the arthroscope was directed into the subacromial space. A lateral 50 yard line lateral portal was created. A combination of power instruments and a radiofrequency ablator were used to debride bursitis anteriorly, posteriorly, and laterally as well as expose and smooth and opened up the subacromial space by resecting the undersurface of the acromion. The coracoacromial ligament was minimally released. The bursectomy was completed viewing laterally and working from posteriorly and the rotator cuff was thoroughly inspected with findings noted above. The small full-thickness far anterior supraspinatus defect was probed and felt to be amenable to repair. Care was taken to avoid working or closing the rotator interval to prevent pain and stiffness. The anteriormost aspect of the greater tuberosity was prepared to optimize bone tendon healing with power and hand instruments. The self retrieving suture passer was used to place an inverted horizontal mattress FiberTape stitch medial and posterior to the tear. Traction on this repair suture confirmed appropriate tissue hold and provisional reduction to the prepared bone surface. The undersized punch was used to localize placement for the suture anchor. A 4.75 mm knotless SwiveLock anchor was loaded with the rotator cuff repair sutures and deployed with appropriate tension on the repair with surprisingly excellent bone suture anchor fixation, possibly due to the location near the bicipital groove. The repair was inspected and had good tissue coverage. It was stable through range of motion. No additional repair was necessary. The shoulder was drained of arthroscopic fluid. All portal sites were copiously irrigated. These incisions were closed using 3-0 Monocryl in a buried fashion and then covered with Mastisol, Steri-Strips, Xeroform, dry gauze, and ABDs. The dressings were covered and secured with Medipore tape. The operative extremity was placed into a sling for immobilization. The patient awoke from anesthesia without complication and was transferred to the recovery room in a stable condition.
== END 2022-04-11 16:08 | disposition home or self-care (01) ==
PROVIDERS: PCP Nurse Practitioner Family; Visit Provider Student in an Organized Health Care Education/Training Program
PROC: (CPT 29827; principal; 2022-04-11 11:00)
DX: S46.011A Strain of muscle(s) and tendon(s) of the rotator cuff of right shoulder, initial encounter (principal); M75.51 Bursitis of right shoulder; M75.21 Bicipital tendinitis, right shoulder; M94.211 Chondromalacia, right shoulder; M24.111 Other articular cartilage disorders, right shoulder; M65.811 Other synovitis and tenosynovitis, right shoulder; W19.XXXA Unspecified fall, initial encounter
CPT/HCPCS: 29827; 29823; 29826; 76942; 99214; J0690; J1100; J1885; J2250; J2370; J2405; J2704

== ENCOUNTER → 2022-04-24 09:26 | Outpatient (BNVA) | payer OTHER, MEDICAID, SELFPAY | PROVIDERS: PCP Nurse Practitioner Family; Referring Provider Nurse Practitioner Family; Visit Provider Student in an Organized Health Care Education/Training Program | DX: M75.21 Bicipital tendinitis, right shoulder (principal); M75.51 Bursitis of right shoulder; S46.011D Strain of muscle(s) and tendon(s) of the rotator cuff of right shoulder, subsequent encounter; X58.XXXD Exposure to other specified factors, subsequent encounter ==

== ENCOUNTER → 2022-06-25 09:00 | Outpatient (BNVA) | payer OTHER, MEDICAID, SELFPAY | PROVIDERS: PCP Nurse Practitioner Family; Visit Provider Student in an Organized Health Care Education/Training Program ==

== ENCOUNTER → 2022-08-13 13:34 | Outpatient (BNVA) | payer OTHER, MEDICAID, SELFPAY | PROVIDERS: PCP Nurse Practitioner Family; Visit Provider Internal Medicine Cardiovascular Disease | DX: I25.110 Atherosclerotic heart disease of native coronary artery with unstable angina pectoris (principal); I10 Essential (primary) hypertension; E78.5 Hyperlipidemia, unspecified | CPT/HCPCS: 99213 ==

== ENCOUNTER 2022-09-06 09:28 | Outpatient (REF) | payer OTHER, MEDICAID, SELFPAY ==
[2022-09-06 13:40] LABS: COMMENT (LAB VIEW ONLY) 51.89 mg/dL; Microalb ug/mg Crea 7.9 ug/mg Cr
== END 2022-09-06 09:29 | disposition home or self-care (01) ==
LOC: LBN 09:28
PROVIDERS: PCP Nurse Practitioner Family; Visit Provider Nurse Practitioner Family
DX: E11.9 Type 2 diabetes mellitus without complications (principal)
CPT/HCPCS: 82043; 82570

== ENCOUNTER 2022-10-05 08:19 | Emergency (ER) | payer OTHER, MEDICAID, SELFPAY ==
[2022-10-05 08:29] VITALS: BP 129/70; PULSE 57; RESP 16; TEMP 36.5; O2SAT 98
[2022-10-05] MEDS: Lidocaine 2% Jelly 11 ML SYR UR (09:16)
[2022-10-05] MEDS: Phenazopyridine 100 MG TAB PO (09:16)
[2022-10-05 09:49] LABS: Bilirubin Negative (Negative); Blood Trace-intact (Negative); Clarity Clear (Clear); Glucose >=1000 mg/dL (Negative); Ketones Negative (Negative); Leukocyte Esterase Negative (Negative); Nitrite Positive (Negative); pH 6.5 (5-8)
[2022-10-05 09:59] LABS: Bacteria Negative HPF (Negative); C & S Indicated? No; Casts Negative LPF (Negative); Crystals Negative HPF (Negative); Epithelial Cells Negative HPF (Negative); Mucus Negative (Negative); Other Cells Few Transitional (Negative)
--- NOTE | 2022-10-05 10:02 | W.ED.GENAD ---
Discharge Plan Disposition Patient Disposition: Home Discharge Details Clinical Impression: Acute UTI Primary Care Provider: Ed Peter ED Provider: Gus Oreilly Home Meds and New Rx's Prescriptions: New cephalexin 500 mg tablet 500 mg PO BID 7 Days Qty: 14 0RF phenazopyridine [Pyridium] 100 mg tablet 100 mg PO TID PRNQty: 6 0RF Continued aspirin [Aspir-81] 81 mg tablet,delayed release (DR/EC) 81 mg PO DAILY loratadine 10 mg capsule 10 mg PO DAILY omeprazole 20 mg capsule,delayed release(DR/EC) 20 mg PO DAILY Qty: 90 3RF methylprednisolone acetate [Depo-Medrol] 40 mg/mL suspension 40 mg intra-articular ONCE Qty: 1 0RF Jardiance 10 mg tablet 10 mg PO DAILY Qty: 90 3RF atorvastatin 20 mg tablet 20 mg PO QPM Qty: 90 3RF fluticasone propionate [Flonase Allergy Relief] 50 mcg/actuation spray,suspension 1 spray intranasal BID Rx Instructions: administer into each nostril budesonide-formoterol [Symbicort] 160-4.5 mcg/actuation HFA aerosol inhaler 2 puff inhalation BID Qty: 3 3RF furosemide [Lasix] 20 mg tablet 20 mg PO BID Qty: 180 3RF metoprolol succinate 50 mg tablet extended release 24 hr 50 mg PO DAILY Qty: 90 3RF lisinopril 20 mg tablet 20 mg PO DAILY Qty: 90 3RF citalopram 40 mg tablet 40 mg PO DAILY Qty: 90 3RF nitroglycerin 0.4 mg tablet, sublingual 0.4 mg sublingual ONCE Qty: 90 3RF Rx Instructions: as a single dose; administer 5-10 minutes before situation known to precipitate angina attack sildenafil 100 mg tablet 100 mg PO DAILY PRN (Reason: sexual activity) Qty: 6 11RF Rx Instructions: administer 30 minutes to 4 hours before activity metformin 500 mg tablet 500 mg PO TID Qty: 270 3RF Rx Instructions: 500mg in am, 1000mg in the evening citalopram 20 mg tablet 20 mg PO DAILY Qty: 90 3RF Rx Instructions: in addition to the 40 mg dose (DME) OneTouch Verio test strips Strip See Rx Instructions .Route Qty: 300 12RF Rx Instructions: test three times daily Discharge Instructions Instructions: Urinary Tract Infection in Men (ED) Additional Instructions: If you develop any severe abdominal or flank pain, fever chills, nausea vomiting, or worsening of symptoms please return immediately to the emergency department for reassessment. Otherwise continue to take your antibiotics as prescribed and follow-up with your primary care provider as needed for reassessment Referrals: Ed Peter, RAGMAN [Primary Care Provider] - Medical Decision Making Patient presenting to the emergency department for chief complaint of difficulty urinating due to burning when he urinates. He states this has been going on for the past couple days. Patient has history of diabetes, GERD, erectile dysfunction. Physical exam is unremarkable. We will check urinalysis for urinary tract infection. Due to difficulty peeing patient is agreeable to straight cath. Will give patient Pyridium pending results Reviewed patient's labs and urinalysis is positive for nitrites also though does have blood intact along with elevated urobilinogen. Patient does have RBCs that are positive in 3-5 white cells, and glucose of greater than 1000. Fingerstick was performed and is 115. Given that patient is positive for nitrites and has burning with urination we will treat patient for suspected urinary tract infection. Given no CVA tenderness no other systemic symptoms doubt pyelonephritis or renal calculi. We will have patient return for any new or worsening symptoms otherwise follow-up with primary care provider. After discussion of diagnosis and plan of care patient has no further needs, questions, or concerns and states clear understanding to return to the emergency department for any worsening symptoms. This documentation was generated using [employer] dictation system, please disregard any oddities of phrase or misspellings. Lab Data Lab results reviewed: Yes I reviewed the patient's lab results. HPI General Mode of arrival: ambulatory. Date/Time Provider Initiated Documentation: 10/05/22 08:51. Limitations to Documentation: no limitations. Information obtained by: patient and RN notes reviewed. History of Present Illness 66 year old M presents to the emergency department with the chief complaint of Burning with urination, described as moderate, Quality is described as burning, and is localized to the genitals. Patient started experiencing this day(s) (2) and it has been constant. No relieving factors improve symptom(s), No exacerbating factors reported . Patient notes no other symptoms.. Patient did receive the following treatments prior to arrival, none Related Data Home Medications Medication Instructions Recorded Confirmed aspirin 81 mg tablet,delayed 81 mg PO DAILY 04/03/18 10/05/22 release (Aspir-) loratadine 10 mg capsule 10 mg PO DAILY 04/03/18 10/05/22 fluticasone propionate 50 1 spray intranasal BID 03/05/21 10/05/22 mcg/actuation nasal spray,suspension (Flonase Allergy Relief) budesonide-formoterol HFA 160 2 puff inhalation BID #3 ea 08/31/21 10/05/22 mcg-4.5 mcg/actuation aerosol inhaler (Symbicort) omeprazole 20 mg capsule,delayed 20 mg PO DAILY #90 caps 02/07/22 10/05/22 release furosemide 20 mg tablet (Lasix) 20 mg PO BID #180 tabs 02/25/22 10/05/22 metoprolol succinate 50 mg 50 mg PO DAILY #90 tabs 02/25/22 10/05/22 tablet,extended release 24 hr lisinopril 20 mg tablet 20 mg PO DAILY #90 tabs 04/03/22 10/05/22 citalopram 40 mg tablet 40 mg PO DAILY #90 tabs 05/06/22 10/05/22 nitroglycerin 0.4 mg sublingual 0.4 mg sublingual ONCE #90 tabs 05/06/22 10/05/22 tablet sildenafil 100 mg tablet 100 mg PO DAILY PRN sexual 05/20/22 10/05/22 activity #6 tabs citalopram 20 mg tablet 20 mg PO DAILY #90 tabs 05/29/22 10/05/22 metformin 500 mg tablet 500 mg PO TID #270 tabs 05/29/22 10/05/22 blood sugar diagnostic (OneTouch #300 ea 06/19/22 10/05/22 Verio test strips) atorvastatin 20 mg tablet 20 mg PO QPM #90 tabs 09/06/22 10/05/22 empagliflozin 10 mg tablet 10 mg PO DAILY #90 tabs 09/06/22 10/05/22 (Jardiance) cephalexin 500 mg tablet 500 mg PO BID 7 days #14 tabs 10/05/22 phenazopyridine 100 mg tablet 100 mg PO TID PRN 6 doses #6 tabs 10/05/22 (Pyridium) Previous Rx's Medication Instructions Recorded budesonide-formoterol HFA 160 2 puff inhalation BID #3 ea 08/31/21 mcg-4.5 mcg/actuation aerosol inhaler (Symbicort) omeprazole 20 mg capsule,delayed 20 mg PO DAILY #90 caps 02/07/22 release furosemide 20 mg tablet (Lasix) 20 mg PO BID #180 tabs 02/25/22 metoprolol succinate 50 mg 50 mg PO DAILY #90 tabs 02/25/22 tablet,extended release 24 hr lisinopril 20 mg tablet 20 mg PO DAILY #90 tabs 04/03/22 citalopram 40 mg tablet 40 mg PO DAILY #90 tabs 05/06/22 nitroglycerin 0.4 mg sublingual 0.4 mg sublingual ONCE #90 tabs 05/06/22 tablet sildenafil 100 mg tablet 100 mg PO DAILY PRN sexual 05/20/22 activity #6 tabs citalopram 20 mg tablet 20 mg PO DAILY #90 tabs 05/29/22 metformin 500 mg tablet 500 mg PO TID #270 tabs 05/29/22 blood sugar diagnostic (OneTouch #300 ea 06/19/22 Verio test strips) atorvastatin 20 mg tablet 20 mg PO QPM #90 tabs 09/06/22 empagliflozin 10 mg tablet 10 mg PO DAILY #90 tabs 09/06/22 (Jardiance) cephalexin 500 mg tablet 500 mg PO BID 7 days #14 tabs 10/05/22 phenazopyridine 100 mg tablet 100 mg PO TID PRN 6 doses #6 tabs 10/05/22 (Pyridium) Allergies Allergy/AdvReac Type Severity Reaction Status Date / Time isosorbide AdvReac headache, Verified 10/05/22 08:33 ,lightheaded General Stated Complaint: Urinary EMILIANO: 3 Review of Systems Constitutional Constitutional: Denies body ache(s), Denies chills, Denies fever(s), Denies malaise and Denies weakness Cardiovascular Cardiovascular: Denies chest pain Respiratory Respiratory: Reports system reviewed and no additional complaints, except as documented Gastrointestinal Gastrointestinal: Denies abdominal pain, Denies nausea and Denies vomiting Genitourinary Genitourinary: Reports as per HPI, Denies hematuria, Reports difficulty urinating, Reports dysuria, Reports urinary urgency and Reports other (Change in urine color) Neurologic Neurologic: Denies confusion and Denies weakness Psychiatric Psychiatric: Denies confusion PFSH All Active Problems (Updated 10/05/22 @ 10:09 by Gus Oreilly NP) Acute UTI (Acute) Unsteady gait (Acute) CAD (coronary artery disease) (Chronic) 2120NSTEMI , treated at [facility], stent to RCA which was a revision, followed by cardiology at [facility] GERD (gastroesophageal reflux disease) (Chronic) Hypertension (Chronic) Type 2 diabetes mellitus (Chronic) [id number] foot Hyperlipidemia (Chronic) Obstructive sleep apnea (Chronic) ED (erectile dysfunction) (Acute) Lipoma (Acute) Depression with anxiety (Acute) Obesity (Chronic) Asthma (Chronic) Per patient-questionable element of COPD although minimal smoking history Right shoulder pain (Acute) Bilateral lower extremity edema (Acute) Wears compression socks. Very controlled. Traumatic tear of right rotator cuff (Acute ~03/2021) Tendonitis of long head of biceps brachii of right shoulder (Acute) Bursitis of right shoulder (Acute) Blind left eye (Acute) Since Itching (Acute) Medical History Balance problems Chest pain Chronic cough Chronic low back pain Dyslipidemia GERD (gastroesophageal reflux disease) H/O coronary angiogram History of non-insulin dependent diabetes mellitus Hypertension Positive cardiac stress test (~2015) PVD (peripheral vascular disease) Surgical History Bone spur of foot Excision History of uvulectomy Hx of heart artery stent SYLVESTER to D1 and RCA Hx of inguinal hernia repair Hx of umbilical hernia repair S/P colonoscopy done 10/06/18 Family History Mother Skin cancer Diabetes Hyperlipidemia Stroke Father , 83 Diabetes Heart disease Sister No problems noted. Sister , 50 No problems noted. Brother No problems noted. Brother No problems noted. Brother No problems noted. Social History Smoking/Tobacco Use Status: Former Tobacco Use tobacco type: cigarettes Quit Date: 03/24/97 Tobacco: How many years used: 5 Second Hand Exposure: Yes Smoking risk assessment performed?: Yes Alcohol Intake: former Drug use: Never Substance use type: does not use Caregiver/Support person: No Household members: significant other Housing: house Communication Needs: None Do you need help understanding health information?: Often Pets and animals: Yes Pets and animals: dog(s) Sexually active: Yes Do you think of yourself as: lesbian/burton/homosexual Current gender identity: male What is your relationship status?: living with partner How often do you talk on the phone with friends or family?: decline to answer How often do you get together with friends or relatives?: decline to answer How often do you attend baptism or mandaen services?: decline to answer Do you belong to any clubs or organized social groups?: no Panel score (0-1 are the most socially isolated patients): 1 What type of physical activity do you participate in: none and walking Duration: 30-45 minutes/day Frequency: 1-2 times per week Franca/Restoration: Jainism Special franca needs: No Seatbelt use: always Helmet use: No Drive intox or ride w/intox driver medic: No Do you feel safe at home: Yes Do you feel safe in your relationship?: Yes Exam Const General: cooperative and no acute distress Orientation: alert, awake and oriented x3 Resp Effort & Inspection: normal respiratory effort and able to speak in complete sentences Auscultation: clear to auscultation bilaterally Cardio Rate: regular rate Rhythm: regular rhythm Heart Sounds: S1 normal and S2 normal Back/Spine/Pelvis Back: no CVA tenderness Neuro General: patient alert, patient awake and patient oriented x3 Extrem General: capillary refill normal Course Vital Signs Vital signs: Vital Signs Temperature 36.5 C 10/05/22 08:29 Pulse 57 L 10/05/22 08:29 Respiratory Rate 16 10/05/22 08:29 Blood Pressure 129/70 10/05/22 08:29 Pulse Oximetry 98 10/05/22 08:29 Temperature 36.5 C 10/05/22 08:29 Temperature Source Skin 10/05/22 08:29 Pulse 57 L 10/05/22 08:29 Respiratory Rate 16 10/05/22 08:29 Respiratory Effort Normal 10/05/22 08:56 Blood Pressure 129/70 10/05/22 08:29 Blood Pressure Position Sitting 10/05/22 08:29 Pulse Oximetry 98 10/05/22 08:29 Oxygen Delivery Method Room Air 10/05/22 08:29 Oxygen Flow Rate 0 10/05/22 08:29 Pain Level 8 10/05/22 08:58 Lab/Test Results Lab/Test Results: Laboratory Tests Range/Units 10/05/22 09:30 Urine Color (Yellow) Yellow Urine Clarity (Clear) Clear Urine pH (5-8) 6.5 Ur Specific Lund (1.005-1.025) 1.010 Urine Protein (Negative) mg/dL Negative Urine Ketones (Negative) mg/dL Negative Urine Blood (Negative) Trace-intact H Urine Nitrite (Negative) Positive H Urine Bilirubin (Negative) Negative Urine Urobilinogen (Up to 0.2) mg/dL 1.0 H Ur Leukocyte Esterase (Negative) Negative Urine RBC (0-2) HPF 3-5 H Urine WBC (0-5) HPF 3-5 Ur Epithelial Cells (Negative) HPF Negative Urine Crystals (Negative) HPF Negative Urine Bacteria (Negative) HPF Negative Urine Casts (Negative) LPF Negative Urine Mucus (Negative) Negative Urine Other (Negative) Few Transitional Ur Culture Indicated? No Urine Glucose (Negative) mg/dL >=1000 H
[2022-10-05] MEDS: Cephalexin 500 MG CAP PO (10:15)
== END 2022-10-05 10:21 | disposition home or self-care (01) ==
PROVIDERS: Emergency Provider Nurse Practitioner Family; PCP Nurse Practitioner Family
DX: N39.0 Urinary tract infection, site not specified (principal); E11.9 Type 2 diabetes mellitus without complications; K21.9 Gastro-esophageal reflux disease without esophagitis
CPT/HCPCS: 36416; 51701; 82962; 99283; 81003; 81015; 99284

== ENCOUNTER 2022-11-10 16:13 | Emergency (ER) | payer OTHER, MEDICAID, SELFPAY ==
[2022-11-10] VITALS (35 sets, daily range): BP systolic 122–147; BP diastolic 59–95; PULSE 48–78; RESP 3–21; TEMP 36.4; O2SAT 94–99
--- NOTE | 2022-11-10 16:00 | RT.EKG_ITS ---
APPROVED REPORT Exam: Resting ECG Reason for Exam: CHEST PAIN Patient Location: E HR:66 bpm ECG Measurements Heart Rate 66 AXIS WY 159 P 32 QRSd 134 QRS -34 QT 463 T 36 QTc 486 Conclusion Sinus rhythm...normal P axis, V-rate 60- 99 Right bundle branch block...QRSd>120, terminal axis(90,270) sinus rhythm, left axis, RBBB
--- NOTE | 2022-11-10 16:30 | ED.GENADUL_ITS ---
Discharge Plan Disposition Patient Disposition: Home Condition: Improving Discharge Details Chief Complaint: Chest Pain Clinical Impression: Chest pain Primary Care Provider: Ed Peter ED Provider: Fabian Garcia Home Meds and New Rx's Prescriptions: No Action aspirin [Aspir-81] 81 mg tablet,delayed release (DR/EC) 81 mg PO DAILY loratadine 10 mg capsule 10 mg PO DAILY omeprazole 20 mg capsule,delayed release(DR/EC) 20 mg PO DAILY Qty: 90 3RF methylprednisolone acetate [Depo-Medrol] 40 mg/mL suspension 40 mg intra-articular ONCE Qty: 1 0RF Jardiance 10 mg tablet 10 mg PO DAILY Qty: 90 3RF atorvastatin 20 mg tablet 20 mg PO QPM Qty: 90 3RF fluticasone propionate [Flonase Allergy Relief] 50 mcg/actuation spray,suspension 1 spray intranasal BID Rx Instructions: administer into each nostril budesonide-formoterol [Symbicort] 160-4.5 mcg/actuation HFA aerosol inhaler 2 puff inhalation BID Qty: 3 3RF furosemide [Lasix] 20 mg tablet 20 mg PO BID Qty: 180 3RF metoprolol succinate 50 mg tablet extended release 24 hr 50 mg PO DAILY Qty: 90 3RF lisinopril 20 mg tablet 20 mg PO DAILY Qty: 90 3RF citalopram 40 mg tablet 40 mg PO DAILY Qty: 90 3RF nitroglycerin 0.4 mg tablet, sublingual 0.4 mg sublingual ONCE Qty: 90 3RF Rx Instructions: as a single dose; administer 5-10 minutes before situation known to precipitate angina attack sildenafil 100 mg tablet 100 mg PO DAILY PRN (Reason: sexual activity) Qty: 6 11RF Rx Instructions: administer 30 minutes to 4 hours before activity metformin 500 mg tablet 500 mg PO TID Qty: 270 3RF Rx Instructions: 500mg in am, 1000mg in the evening citalopram 20 mg tablet 20 mg PO DAILY Qty: 90 3RF Rx Instructions: in addition to the 40 mg dose (DME) OneTouch Verio test strips Strip See Rx Instructions .Route Qty: 400 12RF Rx Instructions: test four times daily phenazopyridine [Pyridium] 100 mg tablet 100 mg PO TID PRNQty: 6 0RF Patient Comments: Pt states is no longer taking Discharge Instructions Instructions: Chest Pain (ED) Additional Instructions: Please follow-up closely with your primary care physician. Please return to the emergency department for any worsening symptom Medical Decision Making 67-year-old male history of coronary disease diabetes hyperlipidemia, prior cardiac stents, presents with anterior chest pain over the course of today nonexertional in nature, intermittent use of nitroglycerin with incomplete r esolution, nonexertional in nature, afebrile nontoxic normoxic nontachycardic slightly hypertensive; consider ACS versus musculoskeletal discomfort such as costochondritis versus pleurisy versus GERD versus esophagitis versus anxiety versus gas low suspicion for cholecystitis colitis enteritis or bowel obstruction. Screening labs imaging aspirin fluids close reassess 19: 35 patient resting comfortably no acute distress hemodynamically stable. Will trial GI cocktail as patient does have history of GERD. Patient dispo pending second troponin and reassessment of symptoms. 19: 59 patient resting comfortably asymptomatic. Chest pain-free. HPI General Date/Time Provider Initiated Documentation: 11/10/22 16:15 . HPI Narrative: 67-year-old female history of coronary disease cardiac stents hyperlipidemia diabetes, presents with anterior chest discomfort nonradiating that began earlier today, patient was taken 3 nitro sublingual throughout the day with some relief however still having some anterior chest discomfort, nonexertional in nature, denies leg pain or swelling denies recent travel or hospitalization denies recent sick contacts, feels generally fatigued. Related Data Home Medications Medication Instructions Recorded Confirmed aspirin 81 mg tablet,delayed 81 mg PO DAILY 04/03/18 11/10/22 release (Aspir-) loratadine 10 mg capsule 10 mg PO DAILY 04/03/18 11/10/22 fluticasone propionate 50 1 spray intranasal BID 03/05/21 11/10/22 mcg/actuation nasal spray,suspension (Flonase Allergy Relief) budesonide-formoterol HFA 160 2 puff inhalation BID #3 ea 08/31/21 11/10/22 mcg-4.5 mcg/actuation aerosol inhaler (Symbicort) omeprazole 20 mg capsule,delayed 20 mg PO DAILY #90 caps 02/07/22 11/10/22 release furosemide 20 mg tablet (Lasix) 20 mg PO BID #180 tabs 02/25/22 11/10/22 metoprolol succinate 50 mg 50 mg PO DAILY #90 tabs 02/25/22 11/10/22 tablet,extended release 24 hr lisinopril 20 mg tablet 20 mg PO DAILY #90 tabs 04/03/22 11/10/22 citalopram 40 mg tablet 40 mg PO DAILY #90 tabs 05/06/22 11/10/22 nitroglycerin 0.4 mg sublingual 0.4 mg sublingual ONCE #90 tabs 05/06/22 11/10/22 tablet sildenafil 100 mg tablet 100 mg PO DAILY PRN sexual 05/20/22 11/10/22 activity #6 tabs citalopram 20 mg tablet 20 mg PO DAILY #90 tabs 05/29/22 11/10/22 metformin 500 mg tablet 500 mg PO TID #270 tabs 05/29/22 11/10/22 atorvastatin 20 mg tablet 20 mg PO QPM #90 tabs 09/06/22 11/10/22 empagliflozin 10 mg tablet 10 mg PO DAILY #90 tabs 09/06/22 11/10/22 (Jardiance) phenazopyridine 100 mg tablet 100 mg PO TID PRN 6 doses #6 tabs 10/05/22 10/07/22 (Pyridium) blood sugar diagnostic (OneTouch #400 ea 10/21/22 Verio test strips) Previous Rx's Medication Instructions Recorded budesonide-formoterol HFA 160 2 puff inhalation BID #3 ea 08/31/21 mcg-4.5 mcg/actuation aerosol inhaler (Symbicort) omeprazole 20 mg capsule,delayed 20 mg PO DAILY #90 caps 02/07/22 release furosemide 20 mg tablet (Lasix) 20 mg PO BID #180 tabs 02/25/22 metoprolol succinate 50 mg 50 mg PO DAILY #90 tabs 02/25/22 tablet,extended release 24 hr lisinopril 20 mg tablet 20 mg PO DAILY #90 tabs 04/03/22 citalopram 40 mg tablet 40 mg PO DAILY #90 tabs 05/06/22 nitroglycerin 0.4 mg sublingual 0.4 mg sublingual ONCE #90 tabs 05/06/22 tablet sildenafil 100 mg tablet 100 mg PO DAILY PRN sexual 05/20/22 activity #6 tabs citalopram 20 mg tablet 20 mg PO DAILY #90 tabs 05/29/22 metformin 500 mg tablet 500 mg PO TID #270 tabs 05/29/22 atorvastatin 20 mg tablet 20 mg PO QPM #90 tabs 09/06/22 empagliflozin 10 mg tablet 10 mg PO DAILY #90 tabs 09/06/22 (Jardiance) phenazopyridine 100 mg tablet 100 mg PO TID PRN 6 doses #6 tabs 10/05/22 (Pyridium) blood sugar diagnostic (OneTouch #400 ea 10/21/22 Verio test strips) Allergies Allergy/AdvReac Type Severity Reaction Status Date / Time isosorbide AdvReac headache, Verified 11/10/22 16:20 ,lightheaded General Stated Complaint: Chest Pain EMILIANO: 2 Review of Systems Narrative: Review of Systems Constitutional: negative Eyes: negative ENT: negative Cardiovascular: Chest pain Respiratory: negative Gastrointestinal: negative : negative Musculoskeletal: negative Skin: negative Neurologic: negative Psych: negative PFSH All Active Problems (Updated 11/10/22 @ 19:38 by Fabian Garcia MD) Chest pain (Acute) Unsteady gait (Acute) CAD (coronary artery disease) (Chronic) 2120NSTEMI , treated at [facility], stent to RCA which was a revision, followed by cardiology at [facility] GERD (gastroesophageal reflux disease) (Chronic) Hypertension (Chronic) Type 2 diabetes mellitus (Chronic) [id number] foot Hyperlipidemia (Chronic) Obstructive sleep apnea (Chronic) ED (erectile dysfunction) (Acute) Lipoma (Acute) Depression with anxiety (Acute) Obesity (Chronic) Asthma (Chronic) Per patient-questionable element of COPD although minimal smoking history Right shoulder pain (Acute) Bilateral lower extremity edema (Acute) Wears compression socks. Very controlled. Traumatic tear of right rotator cuff (Acute ~03/2021) Tendonitis of long head of biceps brachii of right shoulder (Acute) Bursitis of right shoulder (Acute) Blind left eye (Acute) Since Itching (Acute) Medical History Balance problems Chest pain Chronic cough Chronic low back pain Dyslipidemia GERD (gastroesophageal reflux disease) H/O coronary angiogram History of non-insulin dependent diabetes mellitus Hypertension Positive cardiac stress test (~2015) PVD (peripheral vascular disease) Surgical History Bone spur of foot Excision History of uvulectomy Hx of heart artery stent SYLVESTER to D1 and RCA Hx of inguinal hernia repair Hx of umbilical hernia repair S/P colonoscopy done 10/06/18 Family History Mother Skin cancer Diabetes Hyperlipidemia Stroke Father , 83 Diabetes Heart disease Sister No problems noted. Sister , 50 No problems noted. Brother No problems noted. Brother No problems noted. Brother No problems noted. Social History Smoking/Tobacco Use Status: Former Tobacco Use tobacco type: cigarettes Quit Date: 03/24/97 Tobacco: How many years used: 5 Second Hand Exposure: Yes Smoking risk assessment performed?: Yes Alcohol Intake: former Drug use: Never Substance use type: does not use Caregiver/Support person: No Household members: significant other Housing: house Communication Needs: None Do you need help understanding health information?: Often Pets and animals: Yes Pets and animals: dog(s) Sexually active: Yes Do you think of yourself as: lesbian/burton/homosexual Current gender identity: male What is your relationship status?: living with partner How often do you talk on the phone with friends or family?: decline to answer How often do you get together with friends or relatives?: decline to answer How often do you attend mu-ism or anabaptist services?: decline to answer Do you belong to any clubs or organized social groups?: no Panel score (0-1 are the most socially isolated patients): 1 What type of physical activity do you participate in: none and walking Duration: 30-45 minutes/day Frequency: 1-2 times per week Franca/Jainism: Jewish Special franca needs: No Seatbelt use: always Helmet use: No Drive intox or ride w/intox putaway driver: No Do you feel safe at home: Yes Do you feel safe in your relationship?: Yes Exam Narrative Exam Narrative: Physical Examination General: alert, awake, cooperative, resting comfortably, no acute distress HEENT: normocephalic, atraumatic; PERRL, EOM intact, conjunctiva normal; no nasal discharge; moist mucous membranes, oral and pharyngeal mucosa normal, tolerating secretions Neck: supple, trachea midline; full ROM Chest: normal to inspection Respiratory: normal respiratory effort, speaking in full sentences, clear to auscultation, no wheezing, rales or rhonchi Cardiac: regular rate, regular rhythm, S1S2 intact, no murmurs rubs or gallops GI: abdomen soft, non-tender, non-distended; no palpable mass or hepatosplenomegaly Skin: no lesions, rashes or trauma appreciated Neuro: AAOx3, normal speech, moving all extremities Extremities: No peripheral edema Psych: Appropriate mood and affect Course Vital Signs Vital signs: Vital Signs Temperature 36.4 C L 11/10/22 16:15 Pulse 69 11/10/22 16:15 Respiratory Rate 18 11/10/22 16:15 Blood Pressure 147/76 H 11/10/22 16:15 Temperature 36.4 C L 11/10/22 16:15 Temperature Source Skin 11/10/22 16:15 Pulse 69 11/10/22 16:15 Respiratory Rate 18 11/10/22 16:15 Blood Pressure 147/76 H 11/10/22 16:15 Blood Pressure Position Sitting 11/10/22 16:15 Oxygen Delivery Method Room Air 11/10/22 16:15 Oxygen Flow Rate 0 11/10/22 16:15 Pain Level 9 11/10/22 16:15
[2022-11-10 16:50] LABS: Abs Immature Grans 0.01 10^3/uL (0.0-0.06); Absolute Basophil Count 0.04 10^3/uL (0.0-0.2); Absolute Eosinophil Count 0.18 10^3/uL (0.0-0.7); Absolute Lymphocyte Count 1.54 10^3/uL (1.2-3.4); Absolute Neutrophil Count 2.99 10^3/uL (1.2-6.7); Basophils % 0.8; Eosinophils % 3.5; HCT 37.8 % (40.0-50.0); HGB 11.3 g/dL (13.5-17.5); Immature Grans % 0.2; Lymphocytes % 29.8; MCH 25.1 pg (27.0-33.0); MCHC 29.9 % (32.0-36.0); MCV 84 fL (80-95); MPV 9.4 fL (8.0-11.0); Monocytes % 7.8; Neutrophils % 57.9; Platelet Count 225 10^3/uL (130-400); RBC 4.51 10^6/uL (4.36-5.78); RDW 15.6 % (11.8-14.1); RDW-SD 47.2 fL; WBC 5.16 10^3/uL (4.4-10.8)
[2022-11-10] MEDS: Normal Saline 1,000 ML 1000 ML IV (16:54)
[2022-11-10] MEDS: Aspirin 81 MG CHEW 324 MG CH (16:54)
[2022-11-10] MEDS: Ondansetron 4 MG/2 ML VIAL IVP (16:54)
[2022-11-10 17:08] LABS: PTT Activated 24.1 sec (21.5-31.9); Prothrombin Time 9.8 sec (9.3-11.0)
--- NOTE | 2022-11-10 17:14 | DI.RAD_ITS ---
Exam(s) XR CHEST 2V PA LATERAL EXAM: XR CHEST 2V PA LATERAL CLINICAL HISTORY: chest pain. TECHNIQUE: 2D digital imaging was performed. COMPARISON: CR XR PORTABLE CHEST AP from 05/15/2021 FINDINGS: 2 views: Heart size is normal. The mediastinum is not widened. Right lung is clear. There is platelike atelectasis in left lung base. No pleural effusions. No pulmonary edema. IMPRESSION: There is subsegmental platelike atelectasis in left lung base. DATA REPOSITORY: RADIATION DOSE DELIVERED:
[2022-11-10 17:15] LABS: ALT 39 U/L (16-63); AST 24 U/L (15-37); Albumin 3.8 g/dL (3.4-5.0); Alkaline Phosphatase 75 U/L (46-116); BUN 13 mg/dL (7-18); Bilirubin, Total 0.5 mg/dL (0.2-1.0); CREATININE 1.3 mg/dL (0.70-1.30); Calcium 9.1 mg/dL (8.5-10.1); Chloride 105 mmol/L (98-107); Estimated GFR 60.59 (mL/min/1.73m2); Glucose 157 mg/dL (74-106); Lipase 41 U/L (16-77); Potassium 3.9 mmol/L (3.5-5.1); Sodium 142 mmol/L (136-145); TSH (W/Ref FT4) 2.13 uIU/mL (0.36-3.74); Total Protein 7.2 g/dL (6.4-8.2); Troponin I < 50 ng/L (<or=60)
--- NOTE | 2022-11-10 17:29 | DI.VRAD_ITS ---
PROCEDURE INFORMATION: Exam: XR Chest Exam date and time: 11/10/2022 5:07 PM Age: 67 years old Clinical indication: Other: Chest pain TECHNIQUE: Imaging protocol: Radiologic exam of the chest. Views: 2 views. COMPARISON: CR XR PORTABLE CHEST AP 15/05/2021 10:20 FINDINGS: Lungs: Patchy reticular markings at the left lung base consistent with atelectasis or developing infiltrate. Pleural spaces: Unremarkable. No pleural effusion. No pneumothorax. Heart/Mediastinum: Stable cardiomediastinal silhouette. Bones/joints: Multilevel degenerative changes of the spine. IMPRESSION: Left lower lobe reticular markings consistent with atelectasis or developing infiltrate. Dictated and Authenticated by: Demi Hernandez MD. Ordering:KATHIE Peralta MD
[2022-11-10] MEDS: Mylanta Suspension 30 ML CUP PO (19:45)
[2022-11-10] MEDS: Famotidine 20 MG/2 ML VIAL IVP (19:45)
[2022-11-10 19:54] LABS: Troponin I < 50 ng/L (<or=60)
== END 2022-11-10 20:10 | disposition home or self-care (01) ==
PROVIDERS: Emergency Provider Emergency Medicine; PCP Nurse Practitioner Family
DX: R07.9 Chest pain, unspecified (principal); I45.19 Other right bundle-branch block; I25.10 Atherosclerotic heart disease of native coronary artery without angina pectoris; I25.2 Old myocardial infarction; I10 Essential (primary) hypertension; E11.9 Type 2 diabetes mellitus without complications; E78.5 Hyperlipidemia, unspecified; Z79.84 Long term (current) use of oral hypoglycemic drugs; Z95.5 Presence of coronary angioplasty implant and graft; Z87.891 Personal history of nicotine dependence
CPT/HCPCS: 36415; 80053; 83690; 93005; 96360; 96361; 99284; 71046; 84443; 84484; 85025; 85610; 85730; 93010; J2405

== ENCOUNTER 2023-03-04 09:17 | Emergency (ER) | payer OTHER, MEDICAID, SELFPAY ==
[2023-03-04 09:20] VITALS: BP 172/83; PULSE 73; RESP 18; TEMP 36.6; O2SAT 94
--- NOTE | 2023-03-04 09:41 | ED.GENADUL_ITS ---
Discharge Plan Disposition Patient Disposition: Home Condition: Good Discharge Details Clinical Impression: Depression with anxiety, Type 2 diabetes mellitus, Unsteady gait, Hypomagnesemia Primary Care Provider: Ed Peter ED Provider: Anel Polanco Leland Meds and New Rx's Prescriptions: Continued aspirin [Aspir-81] 81 mg tablet,delayed release (DR/EC) 81 mg PO DAILY nitroglycerin 0.4 mg tablet, sublingual 0.4 mg sublingual ONCE Qty: 90 3RF Rx Instructions: as a single dose; administer 5-10 minutes before situation known to precipit ate angina attack atorvastatin 20 mg tablet 20 mg PO QPM Qty: 90 3RF (DME) OneTouch Verio test strips Strip See Rx Instructions .Route Qty: 400 12RF Rx Instructions: test four times daily budesonide-formoterol [Symbicort] 160-4.5 mcg/actuation HFA aerosol inhaler 2 puff inhalation BID Qty: 3 3RF citalopram 40 mg tablet 40 mg PO DAILY Qty: 90 3RF citalopram 20 mg tablet 20 mg PO DAILY Qty: 90 3RF Rx Instructions: in addition to the 40 mg dose Jardiance 10 mg tablet 10 mg PO DAILY Qty: 90 3RF fluticasone propionate [Flonase Allergy Relief] 50 mcg/actuation spray,suspension 1 spray intranasal BID Qty: 16 3RF Rx Instructions: administer into each nostril furosemide [Lasix] 20 mg tablet 20 mg PO BID Qty: 180 3RF lisinopril 20 mg tablet 20 mg PO DAILY Qty: 90 3RF loratadine 10 mg capsule 10 mg PO DAILY Qty: 90 3RF metformin 500 mg tablet 500 mg PO TID Qty: 270 3RF Rx Instructions: 500mg in am, 1000mg in the evening metoprolol succinate 50 mg tablet extended release 24 hr 50 mg PO DAILY Qty: 90 3RF omeprazole 20 mg capsule,delayed release(DR/EC) 20 mg PO DAILY Qty: 90 3RF sildenafil 100 mg tablet 100 mg PO DAILY PRN (Reason: sexual activity) Qty: 6 11RF Rx Instructions: administer 30 minutes to 4 hours before activity phenazopyridine [Pyridium] 100 mg tablet 100 mg PO TID PRNQty: 6 0RF Patient Comments: Pt states is no longer taking Discharge Instructions Instructions: Weakness (ED), Hypomagnesemia (ED), Anxiety (ED) Additional Instructions: Your labs are reassuring here today. As we discussed, your magnesium was slightly low. Attached is information on low magnesium and how to increase this in your diet. Some of your muscle cramps that you are experiencing may be associated with dehydration so I do encourage you to increase your water intake. I am also worried about your mental health. You have declined consult with mental health at this time but may seek it at any point. You may also discuss this further with your primary care provider at your upcoming appointment. I have asked our care management team to reach out to you about ongoing's in the community and seeing if we can connect to get you out of the home more. Regard to your generalized weakness, I have referred you to physical therapy, referral is attached. Care management may also be able to help arranging transportation. If you develop chest pain, shortness of breath, fever/chills, or other new/worsening symptoms please seek care urgently once again. Otherwise, please keep your upcoming primary care appointment. Stand Alone Forms: Physical Therapy Referral Referrals: Ed Peter NP [Primary Care Provider] - Discharge Data Discharge Date/Time-TO BE ENTERED AT DEPARTURE: 03/04/23 12:02 Medical Decision Making Patient is a pleasant 67-year-old male with history of PVD, GERD, dyslipidemia, diabetes, hypertension, balance problems, ACS, status post stent placement, presenting via EMS with concerns for generalized weakness. He reports that as he is on a diuretic, he wakes frequently throughout the night and when he woke to urinate around 1 AM, he felt more weak than typical. States that it was, and continues, to affect BLE, R>L. States that when he has had weakness historically, the right is typically more affected, associated with previous fx. States he walked to mailbox, reports long driveway, and slipped coming back up the ramp. Feels that this was in part d/t BLE weakness. Then had difficulty getting back up. He denies striking his head, no CRAWFORD or LOC. denies neck/back pain. Minor pain in right shoulder but denies any acute pain from emma injury. He is more concerned about his generalized weakness. Glucose ahs been elevated recently at home. On exam, patient appears nontoxic. He is resting confortably, no acute distress. Neuro exam is intact. 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 No focal complaint, no focal weakness noted on exam. He has slight tremor on the RUE but he reports this is chronic and uncahnged. Normal heart/lung exam. Concerned for systemic cause such as electrolyte abnormality, thyroid dysfunction. No CRAWFORD or focal dysfunction to suggest CVA or ICH. I do not see need to head imaging at this time. Will obtain labs and reevaluate. Labs reviewed. Patient has mild anemia with a hemoglobin of 11.3 which is baseline for the patient. CMP significant for glucose of 250 which sounds to be baseline for the patient at this time. He does have an upcoming appointment with his primary care in 1 week and plans to discuss this further with them. Magnesium is slightly low at 1.7, will replace this orally. Urinalysis without any evidence of infection. Troponin within normal limits. TSH within normal limits. Discussed these findings with the patient. Concerned about his overall mental health. It sounds like he has had similar symptoms about 1 year ago so some of this may be seasonal. However, he lost 4 of his family members this year which also sounds to be exacerbating things and his works while he is alone during this time of the year. We did offer to get him in touch with mental health which she declines. However, he is interested in being more connected with his community, will reach out to care management to see if he would be eligible or able to connect with centers on aging. Will also refer to physical therapy. He had been having some issues with ambulation and gait. Had been working with physical therapy prior to illness of a family member which caused him to stop. Patient denies any thoughts of self-harm, feels safe going home, particular in the care of his . Have asked transport to bring him to husbands work at patient request. Return precautions discussed. All of his questions and concerns were addressed, he is in agreement with this plan. HPI General Date/Time Provider Initiated Documentation: 03/04/23 09:40 . Limitations to Documentation: no limitations . Information obtained by: patient, EMS, RN notes reviewed and old records reviewed . History of Present Illness 67 year old M presents to the emergency department with the chief complaint of generalized weakness and fall after legs, gave out, described as moderate and similar to prior episodes (has had gait and balaqnce issues in the past), Quality is described as other (denies any acute pain), and is localized to the left, right and lower extremity. Patient started experiencing this hour(s) (0100) and it has been constant. No relieving factors improve symptom(s), No exacerbating factors reported . Patient notes malaise and weakness (generalized, worse in the BLE); denies chest pain, cough, fever/chills, nausea/vomiting, rash, shortness of breath and sync ope. Patient did receive the following treatments prior to arrival, none Related Data Home Medications Medication Instructions Recorded Confirmed aspirin 81 mg tablet,delayed 81 mg PO DAILY 04/03/18 03/04/23 release (Aspir-) nitroglycerin 0.4 mg sublingual 0.4 mg sublingual ONCE #90 tabs 05/06/22 03/04/23 tablet phenazopyridine 100 mg tablet 100 mg PO TID PRN 6 doses #6 tabs 10/05/22 03/04/23 (Pyridium) atorvastatin 20 mg tablet 20 mg PO QPM #90 tabs 03/03/23 03/04/23 blood sugar diagnostic (OneTouch #400 ea 03/03/23 03/04/23 Verio test strips) budesonide-formoterol HFA 160 2 puff inhalation BID #3 ea 03/03/23 03/04/23 mcg-4.5 mcg/actuation aerosol inhaler (Symbicort) citalopram 20 mg tablet 20 mg PO DAILY #90 tabs 03/03/23 03/04/23 citalopram 40 mg tablet 40 mg PO DAILY #90 tabs 03/03/23 03/04/23 empagliflozin 10 mg tablet 10 mg PO DAILY #90 tabs 03/03/23 03/04/23 (Jardiance) fluticasone propionate 50 1 spray intranasal BID #16 grams 03/03/23 03/04/23 mcg/actuation nasal spray,suspension (Flonase Allergy Relief) furosemide 20 mg tablet (Lasix) 20 mg PO BID #180 tabs 03/03/23 03/04/23 lisinopril 20 mg tablet 20 mg PO DAILY #90 tabs 03/03/23 03/04/23 loratadine 10 mg capsule 10 mg PO DAILY #90 caps 03/03/23 03/04/23 metformin 500 mg tablet 500 mg PO TID #270 tabs 03/03/23 03/04/23 metoprolol succinate 50 mg 50 mg PO DAILY #90 tabs 03/03/23 03/04/23 tablet,extended release 24 hr omeprazole 20 mg capsule,delayed 20 mg PO DAILY #90 caps 03/03/23 03/04/23 release sildenafil 100 mg tablet 100 mg PO DAILY PRN sexual 03/03/23 03/04/23 activity #6 tabs Previous Rx's Medication Instructions Recorded nitroglycerin 0.4 mg sublingual 0.4 mg sublingual ONCE #90 tabs 05/06/22 tablet phenazopyridine 100 mg tablet 100 mg PO TID PRN 6 doses #6 tabs 10/05/22 (Pyridium) atorvastatin 20 mg tablet 20 mg PO QPM #90 tabs 03/03/23 blood sugar diagnostic (OneTouch #400 ea 03/03/23 Verio test strips) budesonide-formoterol HFA 160 2 puff inhalation BID #3 ea 03/03/23 mcg-4.5 mcg/actuation aerosol inhaler (Symbicort) citalopram 20 mg tablet 20 mg PO DAILY #90 tabs 03/03/23 citalopram 40 mg tablet 40 mg PO DAILY #90 tabs 03/03/23 empagliflozin 10 mg tablet 10 mg PO DAILY #90 tabs 03/03/23 (Jardiance) fluticasone propionate 50 1 spray intranasal BID #16 grams 03/03/23 mcg/actuation nasal spray,suspension (Flonase Allergy Relief) furosemide 20 mg tablet (Lasix) 20 mg PO BID #180 tabs 03/03/23 lisinopril 20 mg tablet 20 mg PO DAILY #90 tabs 03/03/23 loratadine 10 mg capsule 10 mg PO DAILY #90 caps 03/03/23 metformin 500 mg tablet 500 mg PO TID #270 tabs 03/03/23 metoprolol succinate 50 mg 50 mg PO DAILY #90 tabs 03/03/23 tablet,extended release 24 hr omeprazole 20 mg capsule,delayed 20 mg PO DAILY #90 caps 03/03/23 release sildenafil 100 mg tablet 100 mg PO DAILY PRN sexual 03/03/23 activity #6 tabs Allergies Allergy/AdvReac Type Severity Reaction Status Date / Time isosorbide AdvReac headache, Verified 12/12/23 09:23 ,lightheaded General Stated Complaint: Fall/Non TraumaCriteria EMILIANO: 4 Review of Systems Constitutional Constitutional: Reports as per HPI, Denies chills, Reports fatigue and Denies fever(s) Eyes Eyes: Reports as per HPI, Denies blurry vision and Denies change in vision ENT Ears, Nose, Mouth, and Throat: Denies vertigo and Denies neck pain Cardiovascular Cardiovascular: Reports as per HPI, Denies chest pain, Denies lightheadedness, Denies dyspnea and Denies dyspnea on exertion Respiratory Respiratory: Reports as per HPI, Denies chest congestion, Denies cough, Denies dyspnea and Denies dyspnea on exertion Gastrointestinal Gastrointestinal: Reports as per HPI, Denies abdominal pain, Denies change in bowel habits, Denies nausea and Denies vomiting Genitourinary Genitourinary: Reports system reviewed and no additional complaints, except as documented (denies change in urinary habits) Musculoskeletal Musculoskeletal: Reports as per HPI, Denies back pain, Denies myalgias, Denies muscle cramps, Denies neck pain and Denies numbness Integumentary/Breasts Skin/Breast: Reports as per HPI and Denies rash Neurologic Neurologic: Reports as per HPI, Denies abnormal movements, Denies confusion, Denies vertigo, Denies localized weakness (generalized weakness, particularly in BLE), Denies numbness and Denies sensory deficit Psychiatric Psychiatric: Reports anxiety, Denies confusion, Reports depression and Denies suicidal ideation Endocrine Endocrine: Reports fatigue PFSH All Active Problems (Updated 03/04/23 @ 11:44 by CHAVA Goff) Hypomagnesemia (Acute) Unsteady gait (Acute) CAD (coronary artery disease) (Chronic) 2120NSTEMI , treated at [facility], stent to RCA which was a revision, followed by cardiology at [facility] GERD (gastroesophageal reflux disease) (Chronic) Hypertension (Chronic) Type 2 diabetes mellitus (Chronic) [id number] foot Hyperlipidemia (Chronic) Obstructive sleep apnea (Chronic) ED (erectile dysfunction) (Acute) Lipoma (Acute) Depression with anxiety (Acute) Obesity (Chronic) Asthma (Chronic) Per patient-questionable element of COPD although minimal smoking history Right shoulder pain (Acute) Bilateral lower extremity edema (Acute) Wears compression socks. Very controlled. Traumatic tear of right rotator cuff (Acute ~03/2021) Tendonitis of long head of biceps brachii of right shoulder (Acute) Bursitis of right shoulder (Acute) Blind left eye (Acute) Since Itching (Acute) Medical History Balance problems Chest pain Chronic cough Chronic low back pain Dyslipidemia GERD (gastroesophageal reflux disease) H/O coronary angiogram History of non-insulin dependent diabetes mellitus Hypertension Positive cardiac stress test (~2016) PVD (peripheral vascular disease) Surgical History Bone spur of foot Excision History of uvulectomy Hx of heart artery stent SYLVESTER to D1 and RCA Hx of inguinal hernia repair Hx of umbilical hernia repair S/P colonoscopy done 10/06/18 Family History Mother Skin cancer Diabetes Hyperlipidemia Stroke Father , 83 Diabetes Heart disease Sister No problems noted. Sister , 50 No problems noted. Brother No problems noted. Brother No problems noted. Brother No problems noted. Social History Smoking/Tobacco Use Status: Former Tobacco Use tobacco type: cigarettes Quit Date: 03/24/97 Tobacco: How many years used: 5 Second Hand Exposure: Yes Smoking risk assessment performed?: Yes Alcohol Intake: former Drug use: Never Substance use type: does not use Caregiver/Support person: No Household members: significant other Housing: house Communication Needs: None Do you need help understanding health information?: Often Pets and animals: Yes Pets and animals: dog(s) Sexually active: Yes Do you think of yourself as: lesbian/burton/homosexual Current gender identity: male What is your relationship status?: living with partner How often do you talk on the phone with friends or family?: decline to answer How often do you get together with friends or relatives?: decline to answer How often do you attend christianity or sikh services?: decline to answer Do you belong to any clubs or organized social groups?: no Panel score (0-1 are the most socially isolated patients): 1 What type of physical activity do you participate in: none and walking Duration: 30-45 minutes/day Frequency: 1-2 times per week Franca/Synagogue: [employer]ism Special franca needs: No Seatbelt use: always Helmet use: No Drive intox or ride w/intox transportation driver: No Do you feel safe at home: Yes Do you feel safe in your relationship?: Yes Additional Social history: currently Lives with and cat. Says brother will not talk to him. [place] 03/04/23 Exam Const General: cooperative, healthy appearing, comfortable, no acute distress, well developed, well groomed and anxious Nutritional Appearance: average body habitus and well nourished Orientation: alert, awake and oriented x3 HENMT Head: normal to inspection, no palpable skull fracture, normocephalic and atraumatic Mouth: moist mucous membranes Eyes General: appearance abnormal, both eyes (left eye cloudy, EOM intact) Neck Neck: normal visual inspection, full ROM and no lymphadenopathy Resp Effort & Inspection: normal respiratory effort, able to speak in complete sentences and no respiratory distress Auscultation: clear to auscultation bilaterally, no rales, no rhonchi and no wheezes Cardio Rate: regular rate Rhythm: regular rhythm Heart Sounds: S1 normal and S2 normal Back/Spine/Pelvis Cervical Spine: normal cervical lordosis and cervical ROM normal Skin General skin exam: no rashes or lesions noted Neuro General: patient alert, patient awake and patient oriented x3 Cranial Nerves: CN's II-XI intact bilaterally Cognition: normal cognition Speech: speech normal Gait: normal gait Motor: muscle tone normal throughout, strength 5/5 throughout, no pronator drift, no movement abnormalities noted and no fasciculations Sensory Exam: no sensory deficits noted (no saddle paresthesias) Coordination: [id number] test normal and [id number] test normal Extrem General: normal to inspection, capillary refill normal, no pedal edema and no calf tenderness Psych Appearance: grossly normal and well kempt Mental Status: mental status grossly normal Speech and Movement: speech and movement normal Course Vital Signs Vital signs: Vital Signs Temperature 36.6 C 03/04/23 09:20 Pulse 73 03/04/23 09:20 Respiratory Rate 18 03/04/23 09:20 Blood Pressure 172/83 H 03/04/23 09:20 Pulse Oximetry 94 03/04/23 09:20 Temperature 36.6 C 03/04/23 09:20 Temperature Source Skin 03/04/23 09:20 Pulse 73 03/04/23 09:20 Respiratory Rate 18 03/04/23 09:20 Blood Pressure 172/83 H 03/04/23 09:20 Pulse Oximetry 94 03/04/23 09:20 Oxygen Delivery Method Room Air 03/04/23 09:20 Oxygen Flow Rate 0 03/04/23 09:20 Pain Level 0 03/04/23 09:20
--- NOTE | 2023-03-04 10:15 | RT.EKG_ITS ---
APPROVED REPORT Exam: Resting ECG Reason for Exam: weakness Patient Location: E HR:64 bpm ECG Measurements Heart Rate 64 AXIS SC 153 P 41 QRSd 131 QRS -34 QT 464 T 19 QTc 481 Conclusion Sinus rhythm...normal P axis, V-rate 60- 99 Right bundle branch block...QRSd>120, terminal axis(90,270) Sinus rhythm with right bundle branch block. No significant change from prior 11/10/22. WD
[2023-03-04 10:45] LABS: Abs Immature Grans 0.01 10^3/uL (0.0-0.06); Absolute Basophil Count 0.07 10^3/uL (0.0-0.2); Absolute Eosinophil Count 0.27 10^3/uL (0.0-0.7); Absolute Monocyte Count 0.31 10^3/uL (0.1-0.8); Absolute Neutrophil Count 2.96 10^3/uL (1.2-6.7); Basophils % 1.5; Eosinophils % 5.6; HGB 11.3 g/dL (13.5-17.5); Immature Grans % 0.2; Lymphocytes % 24.9; MCH 24.1 pg (27.0-33.0); MCHC 30.5 % (32.0-36.0); MCV 79 fL (80-95); MPV 10.1 fL (8.0-11.0); Monocytes % 6.4; Neutrophils % 61.4; Platelet Count 199 10^3/uL (130-400); RBC 4.68 10^6/uL (4.36-5.78); RDW 14.7 % (11.8-14.1); RDW-SD 42.3 fL; WBC 4.82 10^3/uL (4.4-10.8)
[2023-03-04 10:56] LABS: Bilirubin Negative (Negative); Blood Negative (Negative); Clarity Clear (Clear); Glucose 100 mg/dL (Negative); Ketones Negative (Negative); Leukocyte Esterase Negative (Negative); Nitrite Negative (Negative); Specific Gravity 1.015 (1.005-1.025); Urobilinogen 0.2 mg/dL (Up to 0.2); pH 5.5 (5-8)
[2023-03-04 11:12] LABS: ALT 46 U/L (16-63); AST 38 U/L (15-37); Albumin 3.7 g/dL (3.4-5.0); Alkaline Phosphatase 82 U/L (46-116); Anion Gap 7.4 mmol/L (3-11); BUN 17 mg/dL (7-18); Bilirubin, Total 0.5 mg/dL (0.2-1.0); CO2 27.6 mmol/L (21.0-32.0); Calcium 8.6 mg/dL (8.5-10.1); Chloride 102 mmol/L (98-107); Estimated GFR 83.01 (mL/min/1.73m2); Glucose 252 mg/dL (74-106); Magnesium 1.7 mg/dL (1.8-2.4); Potassium 4.1 mmol/L (3.5-5.1); Sodium 137 mmol/L (136-145); TSH (W/Ref FT4) 2.22 uIU/mL (0.36-3.74); Total Protein 7.4 g/dL (6.4-8.2); Troponin I < 50 ng/L (<or=60)
[2023-03-04] MEDS: Magnesium Oxide 400 MG TAB PO (11:57)
== END 2023-03-04 12:02 | disposition home or self-care (01) ==
PROVIDERS: Emergency Provider Physician Assistant; PCP Nurse Practitioner Family
DX: F32.A Depression, unspecified (principal); F41.9 Anxiety disorder, unspecified; E83.42 Hypomagnesemia; D64.9 Anemia, unspecified; I45.19 Other right bundle-branch block; I25.10 Atherosclerotic heart disease of native coronary artery without angina pectoris; I25.2 Old myocardial infarction; Z95.5 Presence of coronary angioplasty implant and graft; Z79.82 Long term (current) use of aspirin; Z87.891 Personal history of nicotine dependence; E78.5 Hyperlipidemia, unspecified
CPT/HCPCS: 80053; 93005; 99283; 81003; 83735; 84443; 84484; 85025; 93010

== ENCOUNTER → 2023-04-01 13:58 | Outpatient (BNVA) | payer OTHER, MEDICAID, SELFPAY | PROVIDERS: PCP Nurse Practitioner Family; Referring Provider Nurse Practitioner Family; Visit Provider Internal Medicine Interventional Cardiology | DX: I25.110 Atherosclerotic heart disease of native coronary artery with unstable angina pectoris (principal); R60.0 Localized edema; I10 Essential (primary) hypertension; E78.5 Hyperlipidemia, unspecified | CPT/HCPCS: 99213 ==

== ENCOUNTER → 2023-04-24 11:18 | Outpatient (BNVA) | payer OTHER, MEDICAID, SELFPAY | PROVIDERS: PCP Nurse Practitioner Family; Referring Provider Nurse Practitioner Family; Visit Provider Internal Medicine Interventional Cardiology | DX: I87.2 Venous insufficiency (chronic) (peripheral) (principal) | CPT/HCPCS: 99442 ==

== ENCOUNTER → 2023-05-29 02:42 | Outpatient (CLI) | payer OTHER, MEDICAID, SELFPAY ==
--- NOTE | 2023-05-29 14:30 | DI.US_ITS ---
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 Ejection fraction is 60 to 60%. Wall motio n is normal Normal right ventricular size and function Both atria normal in size Aortic valve is trileaflet with trace regurgitation Mild mitral and tricuspid regurgitation Estimated right ventricular systolic pressure is 28 mmHg Wall motion Left Ventricle The left ventricle is normal size. The left ventricular systolic function is normal. The left ventric ular ejection fraction is within the normal range. There is normal left ventricular wall thickness. T here is normal LV segmental wall motion. There is no ventricular septal defect visualized. LVEF is 62 %. Right Ventricle The right ventricle is normal size. The right ventricular systolic function is normal. Atria The left atrium size is normal. The right atrium size is normal. The interatrial septum is intact wit h no evidence for an atrial septal defect. Aortic Valve The aortic valve is normal in structure. Aortic valve is trileaflet. There is no aortic valvular sten osis. Trace aortic regurgitation. Mitral Valve The mitral valve is normal in structure. No evidence of mitral valve stenosis. Mild mitral regurgitat ion. Tricuspid Valve The tricuspid valve is normal in structure. There is no tricuspid valve stenosis. Mild tricuspid regu rgitation. The RVSP is 28.1 mmHg. Pulmonic Valve The pulmonary valve is normal in structure. There is no pulmonic valvular stenosis. There is no pulmo oniel valvular regurgitation. Great Vessels The aortic root is normal in size. The ascending aorta is normal in size. Aortic arch is not well vis ualized. IVC is normal in size and collapses >50% with inspiration. Pericardium There is no pericardial effusion. 2D Dimensions IVSD d PLAX 0.88 cm M: 0.6-1.2 Ao Root d 3.53 cm M: 3.1 - 3.7 LVPW d PLAX 0.88 cm M: 0.6 - 1.2 Ao Asc Diam d 3.00 cm M: 2.6 - 3.4 LVID d PLAX 4.18 cm M: 4.2 - 5.8 LVDs 2.81 cm M: 2.5 - 4.0 LV EF Teichholz 61.6 % FS 32.75 % LV EDV (Teich) 77.8 mL LV ESV (Teich) 29.9 mL Stroke Vol Index (Teich) 22.09 Auto EF LV EDV A4C 157.4 mL LV EDV A2C 124.1 mL LV EDV BP 146.1 mL LV ESV A4C 59.1 mL LV ESV A2C 49.0 mL LV ESV BP 56.9 mL LVEF(%) A4C 62.5 % LVEF(%) A2C 60.5 % LVEF(%) BP 61.0 % LV SV A4C 98.3 ml LV SV A2C 75.1 ml LV SV BP 89.2 ml LV CO A4C 5.8 L/min LV CO A2C 4.2 L/min LV CO BP 5.0 L/min HR A4C 59.41 BPM HR A2C 55.90 BPM LV EDV Index (BP) LA Volume LA Length A4C 5.8 cm LA Length A2C 6.0 cm LA Area A4C s 12.74 cm2 LA Area A2C s 20.03 cm2 LA Vol A4C A-L 23.78 mL LA Vol A2C A-L 57.05 mL LA Vol Biplane A-L 37.4 mL LA Vol/BSA A4C A-L LA Vol/BSA A2C A-L LA Vol/BSA BP A-L 17.2 mL/m2 LA Vol A4C MOD 23.9 mL LA Vol A2C MOD 53.2 mL LA Vol BP MOD 35.4 mL RA Volume RA Area A4C 7.6 cm2 RA ESV A4C (A-L) 11.3mL RA Vol/BSA A4C A-L RA Length A4C 4.3 cm RA ESV A4C (MOD) 11.1mL LV Diastology MV E' medial 0.053 (>0.07 m/s) MV E Vmax 0.86 (0.4-1.3 m/s) MV E/E' MED 16.34 (<14) MV A Vmax 1.05 (0.4-1.3 m/s) MV E' lateral 0.079 (>0.1 m/s) E/A Ratio 0.8 MV E/E' LAT 10.95 (<14) MV E' Average 0.066 m/s MV E/E'(average) 13.12 Aortic Valve AoV Vmax 1.10 m/s LVOT Vmax 0.84 m/s AoV Peak Grad 4.8 mmHg LVOT Peak Grad 2.8 mmHg AoV Area (Vmax) 2.73 cm2 LVOT VTI 0.174 m AoV VTI 0.228 m LVOT Mean Grad 1.7 mmHg AoV Mean Augustus. 0.88 m/s LVOT SV 62.16 mL AoV Mean Grad 3.2 mmHg LVOT Diam s 2.10 cm AoV Area (VTI) 2.73 cm2 Velocity Ratio 0.76 Mitral Valve MV DT 265 (160-240 msec) Pulmonary Valve PV Vmax 0.78 (0.5-1.5 m/s) RVOT Vmax 0.50 m/s PV Peak Grad 2.4 mmHg RVOT Peak Gr. 1.0 mmHg PV Mean Augustus 0.60 m/s RVOT VTI 0.103 m PV Mean Grad 1.6 mmHg RVOT Mean Gr. 0.6 mmHg Tricuspid Valve RA Pressure 3.00 mmHg TR Vmax 2.51 m/s TR Peak Grad 25.1 mmHg RVSP (TR) 28.1 mmHg
== END ==
PROVIDERS: PCP Nurse Practitioner Family; Visit Provider Internal Medicine Interventional Cardiology
DX: I50.9 Heart failure, unspecified (principal)
CPT/HCPCS: 93306

== ENCOUNTER → 2023-06-13 09:55 | Outpatient (BNVA) | payer OTHER, MEDICAID, SELFPAY | PROVIDERS: PCP Nurse Practitioner Family; Referring Provider Nurse Practitioner Family; Visit Provider Internal Medicine Cardiovascular Disease | DX: I25.110 Atherosclerotic heart disease of native coronary artery with unstable angina pectoris (principal); I87.2 Venous insufficiency (chronic) (peripheral) | CPT/HCPCS: 99213 ==

== ENCOUNTER 2024-05-01 12:51 | Emergency (ER) | payer MEDICARE, MEDICAID, SELFPAY ==
[2024-05-01 12:59] VITALS: BP 156/87; PULSE 90; RESP 18; TEMP 36.9; O2SAT 93
--- NOTE | 2024-05-01 13:19 | ED.GENADUL_ITS ---
Discharge Plan Disposition Patient Disposition: Home Condition: Stable Discharge Details Clinical Impression: Influenza A, Abdominal pain Primary Care Provider: Ed Peter ED Provider: Chanda Sanches Home Meds and New Rx's Prescriptions: New benzonatate 100 mg capsule 100 mg PO BID-TID PRN (Reason: cough) Qty: 10 0RF Rx Instructions: Take 1 capsule up to 2-3 times daily as needed for cough oseltamivir [Tamiflu] 75 mg capsule 75 mg PO BID 5 Days Qty: 10 0RF Continued aspirin [Aspir-81] 81 mg tablet,delayed release (DR/EC) 81 mg PO DAILY loratadine 10 mg capsule 10 mg PO DAILY Qty: 90 3RF (DME) OneTouch Verio test strips Strip See Rx Instructions .Route Qty: 400 12RF Rx Instructions: test four times daily rosuvastatin 10 mg tablet 10 mg PO DAILY 90 Days Qty: 90 4RF Rx Instructions: Take one 10 mg tablet once daily by mouth fluticasone propionate [Flonase Allergy Relief] 50 mcg/actuation spray,suspension 1 spray intranasal BID Qty: 16 3RF Rx Instructions: administer into each nostril furosemide 40 mg tablet 40 mg PO DAILY Qty: 90 3RF nitroglycerin 0.4 mg tablet, sublingual 0.4 mg sublingual ONCE Qty: 20 3RF Rx Instructions: as a single dose; administer 5-10 minutes before situation known to precipitate angina attack insulin glargine [[employer] KwikPen U-100 Insulin] 100 unit/mL (3 mL) insulin pen 10 unit subcut BID Qty: 18 3RF lisinopril 20 mg tablet 20 mg PO DAILY Qty: 90 3RF atorvastatin 20 mg tablet 20 mg PO QPM Qty: 90 3RF metformin 500 mg tablet 500 mg PO TID Qty: 270 3RF Rx Instructions: 500mg in am, 1000mg in the evening Jardiance 10 mg tablet 10 mg PO DAILY Qty: 90 3RF sildenafil 100 mg tablet 100 mg PO DAILY PRN (Reason: sexual activity) Qty: 6 3RF Rx Instructions: administer 30 minutes to 4 hours before activity Do not take if you have used nitroglycerin metoprolol succinate 50 mg tablet extended release 24 hr 50 mg PO DAILY Qty: 90 3RF fluticasone propion-salmeterol [Advair HFA] 115-21 mcg/actuation HFA aerosol inhaler 2 puff inhalation BID Qty: 12 3RF omeprazole 40 mg capsule,delayed release(DR/EC) 40 mg PO DAILY Qty: 90 3RF (DME) Dexcom G7 Sensor Device See Rx Instructions .Route Rx Instructions: Dexcom G7 [place] and Sensors from [employer] (ADS) (DME) pen needle, diabetic 31 gauge x 5/16 needle See Rx Instructions .Route Qty: 1200 3RF Rx Instructions: Twice daily Discharge Instructions Instructions: Abdominal Pain, Adult ED, Flu, Adult ED Additional Instructions: CT shows no evidence of any abdominal abnormality. You have a slightly enlarged spleen but I do not think that has anything to do with your pain. I do suspect that your pain is caused from all the coughing that you have been having from having influenza A. Please take the cough medicine as directed you may also take [id number] cough and cold medicine such as DayQuil NyQuil or similar. Please do not take any extra Tylenol along with this. Follow up with primary care provider in 3-5 days. Return to ED sooner if any worsening or concerns. Increase oral fluids increase vitamin C. Referrals: Ed Peter CHLORINE OPERATOR [Primary Care Provider] - 3 days Discharge Data Discharge Date/Time-TO BE ENTERED AT DEPARTURE: 05/01/24 16:42 HPI General Mode of arrival: ambulatory . Date/Time Provider Initiated Documentation: 05/01/24 12:55 . Limitations to Documentation: no limitations . Information obtained by: patient, RN notes reviewed and old records reviewed . HPI Narrative: 68-year-old male presents to the ER with a chief complaint of 1 week of lower abdominal pain with coughing. He reports it only hurts when he coughs. He had hernia repair in the past inguinal and umbilical. He is complaining of lower abdominal pain and pressure with coughing. He also reports he has not had a bowel movement in the last 2 to 3 days. He has been taking lot of Tylenol at least 4 times a day. He does have a slightly distended abdomen. However he is not complaining of abdominal pain. He is mostly complaining of cough and headaches. Denies any problems urinating. No palpable mass noted on abdominal examination. Past medical history includes CAD, NSTEMI, hyperlipidemia, hypertension, type 2 diabetes, obstructive sleep apnea, GERD. Related Data Home Medications ?Medication ?Instructions ?Recorded ?Confirmed aspirin 81 mg tablet,delayed 81 mg PO DAILY 04/03/18 05/01/24 release (Aspir-) fluticasone propionate 50 1 spray intranasal BID #16 grams 03/03/23 05/01/24 mcg/actuation nasal spray,suspension (Flonase Allergy Relief) furosemide 40 mg tablet 40 mg PO DAILY #90 tabs 04/24/23 05/01/24 loratadine 10 mg capsule 10 mg PO DAILY #90 caps 04/28/23 05/01/24 nitroglycerin 0.4 mg sublingual 0.4 mg sublingual ONCE #20 tabs 07/24/23 05/01/24 tablet insulin glargine 100 unit/mL (3 10 unit (0.1 mL) subcut BID #18 mL 08/01/23 05/01/24 mL) subcutaneous pen ([employer] U-100 Insulin) lisinopril 20 mg tablet 20 mg PO DAILY #90 tabs 09/17/23 05/01/24 blood sugar diagnostic (OneTouch #400 ea 10/10/23 04/15/24 Verio test strips) atorvastatin 20 mg tablet 20 mg PO QPM #90 tabs 01/30/24 05/01/24 metformin 500 mg tablet 500 mg PO TID #270 tabs 02/04/24 05/01/24 empagliflozin 10 mg tablet 10 mg PO DAILY #90 tabs 02/12/24 05/01/24 (Jardiance) metoprolol succinate 50 mg 50 mg PO DAILY #90 tabs 02/12/24 05/01/24 tablet,extended release 24 hr sildenafil 100 mg tablet 100 mg PO DAILY PRN sexual 02/12/24 05/01/24 activity #6 tabs fluticasone propionate 115 2 puff inhalation BID #12 grams 03/18/24 05/01/24 mcg-salmeterol 21 mcg/actuation HFA inhaler (Advair HFA) omeprazole 40 mg capsule,delayed 40 mg PO DAILY #90 caps 03/18/24 05/01/24 release blood-glucose sensor ([employer] G7 04/07/24 04/15/24 Sensor device) pen needle, diabetic 31 gauge x #1,200 ea 04/14/24 04/15/24/16 rosuvastatin 10 mg tablet 10 mg PO DAILY 90 days #90 tabs 04/15/24 05/01/24 benzonatate 100 mg capsule 100 mg PO BID-TID PRN cough #10 05/01/24 caps oseltamivir 75 mg capsule (Tamiflu) 75 mg PO BID 5 days #10 caps 05/01/24 Previous Rx's ?Medication ?Instructions ?Recorded fluticasone propionate 50 1 spray intranasal BID #16 grams 03/03/23 mcg/actuation nasal spray,suspension (Flonase Allergy Relief) furosemide 40 mg tablet 40 mg PO DAILY #90 tabs 04/24/23 loratadine 10 mg capsule 10 mg PO DAILY #90 caps 04/28/23 nitroglycerin 0.4 mg sublingual 0.4 mg sublingual ONCE #20 tabs 07/24/23 tablet insulin glargine 100 unit/mL (3 10 unit (0.1 mL) subcut BID #18 mL 08/01/23 mL) subcutaneous pen ([employer] U-100 Insulin) lisinopril 20 mg tablet 20 mg PO DAILY #90 tabs 09/17/23 blood sugar diagnostic (OneTouch #400 ea 10/10/23 Verio test strips) atorvastatin 20 mg tablet 20 mg PO QPM #90 tabs 01/30/24 metformin 500 mg tablet 500 mg PO TID #270 tabs 02/04/24 empagliflozin 10 mg tablet 10 mg PO DAILY #90 tabs 02/12/24 (Jardiance) metoprolol succinate 50 mg 50 mg PO DAILY #90 tabs 02/12/24 tablet,extended release 24 hr sildenafil 100 mg tablet 100 mg PO DAILY PRN sexual 02/12/24 activity #6 tabs fluticasone propionate 115 2 puff inhalation BID #12 grams 03/18/24 mcg-salmeterol 21 mcg/actuation HFA inhaler (Advair HFA) omeprazole 40 mg capsule,delayed 40 mg PO DAILY #90 caps 03/18/24 release pen needle, diabetic 31 gauge x #1,200 ea 04/14/24 5/ rosuvastatin 10 mg tablet 10 mg PO DAILY 90 days #90 tabs 04/15/24 benzonatate 100 mg capsule 100 mg PO BID-TID PRN cough #10 05/01/24 caps oseltamivir 75 mg capsule (Tamiflu) 75 mg PO BID 5 days #10 caps 05/01/24 Allergies Allergy/AdvReac Type Severity Reaction Status Date / Time isosorbide AdvReac headache, Verified 05/01/24 14:15 ,lightheaded General Stated Complaint: Abd Prob EMILIANO: 3 Review of Systems All systems reviewed & are unremarkable except as noted in HPI and below Constitutional Constitutional: Reports headache(s) ENT Ears, Nose, Mouth, and Throat: Reports headache(s) Respiratory Respiratory: Reports cough and Reports pain with cough Gastrointestinal Gastrointestinal: Reports as per HPI, Reports abdominal pain, Reports change in bowel habits and Reports constipation Neurologic Neurologic: Reports headache(s) Exam Narrative Exam Narrative: Constitutional: Alert and oriented x3. Appears stated age. Normal body habitus. Head: Normocephalic, no trauma. Eyes: Pupils PERRL, Red reflex noted, EOM's intact. Eyelids symmetrical without lesions, discharge, or swelling. ENT: Bilateral TM's WNL, External ear normal to inspection, no mastoid TTP, swelling, or erythema, Nasal turbinates WNL, no nasal discharge. Normal dentition, Posterior pharynx WNL, no exudate. Chest: RRR, Normal S1, S2, distal pulses intact. Resp: Lungs clear to auscultation bilaterally, no wheezes, rales, or rhonchi. Abdomen: Soft, hypo-active bowel sounds all 4 quads. Musculoskeletal: Normal gait, Moves all 4 extremities without difficulty. Skin: No suspicious rashes or lesions. Capillary refill less than 2 sec. Neurologic: Cranial nerves II-XII intact. Alert and oriented x 3. Motor: No deficits noted. Sensory: Intact bilaterally all 4 extremities. Hematologic/Lymphatic: No ecchymosis, no lymphadenopathy. Course Vital Signs Vital signs: Vital Signs Temperature 36.9 C 05/01/24 12:59 Pulse 90 05/01/24 12:59 Respiratory Rate 18 05/01/24 12:59 Blood Pressure 156/87 H 05/01/24 12:59 Pulse Oximetry 93 05/01/24 12:59 Temperature 36.9 C 05/01/24 12:59 Temperature Source Oral 05/01/24 12:59 Pulse 90 05/01/24 12:59 Respiratory Rate 18 05/01/24 12:59 Blood Pressure 156/87 H 05/01/24 12:59 Blood Pressure Position Sitting 05/01/24 12:59 Pulse Oximetry 93 05/01/24 12:59 Oxygen Delivery Method Room Air 05/01/24 12:59 Oxygen Flow Rate 0 05/01/24 12:59 Pain Level 10 05/01/24 12:59 Medical Decision Making 68-year-old male presents to the ER with a chief complaint of 1 week of lower abdominal pain with coughing. He reports it only hurts when he coughs. He had hernia repair in the past inguinal and umbilical. He is complaining of lower abdominal pain and pressure with coughing. He also reports he has not had a bowel movement in the last 2 to 3 days. He has been taking lot of Tylenol at least 4 times a day. He does have a slightly distended abdomen. However he is not complaining of abdominal pain. He is mostly complaining of cough and headaches. Denies any problems urinating. No palpable mass noted on abdominal examination. Past medical history includes CAD, NSTEMI, hyperlipidemia, hypertension, type 2 diabetes, obstructive sleep apnea, GERD. Chest x-ray Fluvid swab CBC CMP PT PTT ordered salicylate and Tylenol level. On patient reevaluation he is still complaining of some pain he has not gotten any Toradol as yet, he reports that he has had this lower abdominal pain since before the cough began CT abdomen pelvis with contrast ordered. Differential diagnose includes but not limited to muscle strain, bowel obstruction, incarcerated hernia, GI bleed. Labs show positive influenza A chest x-ray within normal limits, Tylenol salicylate within normal limits potassium slightly low at 3.[address] shows splenomegaly no evidence of obstruction soft tissues are unremarkable. Will give p.o. potassium and discharge to home. This text was generated using Qbixation system, please disregard any oddities of phrase or misspellings. Medical Records Medical records reviewed: Yes I reviewed the patient's medical records. Imaging Data Radiologic Study: Imaging: CT Scan Radiologist's impression: FINDINGS: Liver: Benign-appearing calcifications in the liver . Hepatomegaly 21 cm Gallbladder and biliary ducts: The gallbladder is unremarkable Pancreas: Pancreatic atrophy Spleen: Splenomegaly 16.9 cm.. Subcentimeter low attenuation area in the spleen is too small for characterization. Adrenal glands: Normal. No mass. Kidneys and ureters: Nonobstructing punctate left renal calculus. No ureteral calculus Stomach and bowel: Unremarkable. No obstruction. No mucosal thickening. Appendix: No evidence of appendicitis. Intraperitoneal space: Unremarkable. No free air. No significant fluid collection. Vasculature: Unremarkable. No abdominal aortic aneurysm. Lymph nodes: Unremarkable. No enlarged lymph nodes. Urinary bladder: Unremarkable as visualized. Reproductive: Unremarkable as visualized. Bones/joints: Unremarkable. No acute fracture. Soft tissues: Unremarkable. VITA GREWAL Preliminary Radiology Report TREND INVESTIGATOR (QA) DISCREPANCY? If there is a discrepancy between the preliminary and final interpretation, please notify [facility] via [email or web address]. If you do not have access to our QA portal, call our QA team at [phone] CONFIDENTIALITY STATEMENT This report is intended only for the use of the referring physician, and only in accordance with law, If you received this in error, call [phone] Page 2 of 2 IMPRESSION: Splenomegaly 16.9 cm.. Lab Data Lab results reviewed: Yes I reviewed the patient's lab results. Labs: Laboratory Tests Range/Units 05/01/24 05/01/24 05/01/24 13:20 13:44 13:56 WBC (4.4-10.8) 10^3/uL 3.92 L RBC (4.36-5.78) 10^6/uL 4.95 Hgb (13.5-17.5) g/dL 11.1 L Hct (40.0-50.0) % 37.9 L MCV (80-95) fL 77 L MCH (27.0-33.0) pg 22.4 L MCHC (32.0-36.0) % 29.3 L RDW (11.8-14.1) % 18.2 H Plt Count (130-400) 10^3/uL 186 MPV (8.0-11.0) fL 9.6 Immature Gran % % 0.5 Neutrophils % % 77.0 Lymphocytes % % 17.6 Monocytes % % 4.1 Eosinophils % % 0.5 Basophils % % 0.3 Nucleated RBC % (0.0-0.3) % 0.0 Absolute Neutrophils (1.2-6.7) 10^3/uL 3.02 Absolute Lymphocytes (1.2-3.4) 10^3/uL 0.69 L Absolute Monocytes (0.1-0.8) 10^3/uL 0.16 Absolute Eosinophils (0.0-0.7) 10^3/uL 0.02 Absolute Basophils (0.0-0.2) 10^3/uL 0.01 PT (9.1-11.1) sec 9.9 INR (0.9-1.1) 1.0 APTT (20.6-30.2) sec 28.2 Sodium (136-145) mmol/L 139 Potassium (3.5-5.1) mmol/L 3.1 L Chloride (98-107) mmol/L 101 Carbon Dioxide (21.0-32.0) mmol/L 28.4 Anion Gap (3-11) mmol/L 9.6 BUN (7-18) mg/dL 18 Creatinine (0.70-1.30) mg/dL 1.3 Est GFR (CKD-EPI 2020) (mL/min/1.73m2) 60.21 Glucose (74-106) mg/dL 155 H Calcium (8.5-10.1) mg/dL 8.6 Total Bilirubin (0.2-1.0) mg/dL 0.40 AST (15-37) U/L 51 H ALT (16-63) U/L 49 Alkaline Phosphatase (46-116) U/L 93 Total Protein (6.4-8.2) g/dL 7.6 Albumin (3.4-5.0) g/dL 3.8 Urine Color (Yellow) Yellow Urine Clarity (Clear) Clear Urine pH (5-8) 5.5 Ur Specific Cameron (1.005-1.025) 1.010 Urine Protein (Neg-Trace) mg/dL Negative Urine Ketones (Negative) mg/dL Negative Urine Blood (Negative) Negative Urine Nitrite (Negative) Negative Urine Bilirubin (Negative) Negative Urine Urobilinogen (Up to 0.2) mg/dL 0.2 Ur Leukocyte Esterase (Negative) Negative Urine RBC (0-2) HPF 0-2 Urine WBC (0-5) HPF 0-2 Ur Epithelial Cells (Negative) HPF Rare Urine Crystals (Negative) HPF Negative Urine Bacteria (Negative) HPF Moderate Urine Casts (Negative) LPF Negative Urine Mucus (Negative) Negative Ur Culture Indicated? No Urine Glucose (Negative) mg/dL >=1000 H Salicylates (<2.8) mg/dL < 2.8 Acetaminophen (10-30) ug/mL 9 COVID-19 Source Nasopharynx SARS-CoV-2 (PCR) (Negative) Negative Influenza Type A (PCR) (Negative) Positive A Influenza Type B (PCR) (Negative) Negative RSV (PCR) (Negative) Negative Quality:SDOH Health Related Social Needs: No Data to Display PFSH All Active Problems (Updated 05/01/24 @ 15:40 by Chanda Sanches NP) Abdominal pain (Acute) Influenza A (Acute) Nail dystrophy (Acute) Chronic venous insufficiency of lower extremity (Acute) Post traumatic stress disorder (PTSD) (Acute) Anxiety (Chronic) Tremor of right hand (Acute) Unsteady gait (Acute) CAD (coronary artery disease) (Chronic) 2120NSTEMI , treated at [facility], stent to RCA which was a revision, followed by cardiology at [facility] GERD (gastroesophageal reflux disease) (Chronic) Hypertension (Chronic) Type 2 diabetes mellitus (Chronic) [id number] foot Hyperlipidemia (Chronic) Obstructive sleep apnea (Chronic) ED (erectile dysfunction) (Acute) Lipoma (Acute) Depression with anxiety (Acute) Obesity (Chronic) Asthma (Chronic) Per patient-questionable element of COPD although minimal smoking history Right shoulder pain (Acute) Bilateral lower extremity edema (Acute) Wears compression socks. Very controlled. Traumatic tear of right rotator cuff (Acute ~03/2021) Tendonitis of long head of biceps brachii of right shoulder (Acute) Bursitis of right shoulder (Acute) Blind left eye (Acute) Since Itching (Acute) Medical History Chest pain H/O coronary angiogram Positive cardiac stress test (~2015) PVD (peripheral vascular disease) GERD (gastroesophageal reflux disease) Chronic cough Dyslipidemia History of non-insulin dependent diabetes mellitus Hypertension Balance problems Chronic low back pain Surgical History History of uvulectomy S/P colonoscopy done 10/06/18 Hx of inguinal hernia repair Hx of umbilical hernia repair Bone spur of foot Excision Hx of heart artery stent SYLVESTER to D1 and RCA Family History Mother Skin cancer Diabetes Hyperlipidemia Stroke Father , 83 Diabetes Heart disease Sister No problems noted. Sister , 50 No problems noted. Brother No problems noted. Brother No problems noted. Brother No problems noted. Social History Smoking/Tobacco Use Status: Former Tobacco Use tobacco type: cigarettes Quit Date: 03/24/97 Tobacco: How many years used: 5 Second Hand Exposure: Yes Smoking risk assessment performed?: Yes Alcohol Intake: former Drug use: Never Substance use type: does not use Caregiver/Support person: No Household members: significant other Housing: house Communication Needs: None Do you need help understanding health information?: Often Pets and animals: Yes Pets and animals: dog(s) Sexually active: Yes Do you think of yourself as: lesbian/burton/homosexual Current gender identity: male What is your relationship status?: living with partner How often do you talk on the phone with friends or family?: decline to answer How often do you get together with friends or relatives?: decline to answer How often do you attend protestant or presybeterian services?: decline to answer Do you belong to any clubs or organized social groups?: no Panel score (0-1 are the most socially isolated patients): 1 What type of physical activity do you participate in: none and walking Duration: 30-45 minutes/day Frequency: 1-2 times per week Franca/Latter-Day: Sabianist Special franca needs: No Seatbelt use: always Helmet use: No Drive intox or ride w/intox fast food delivery driver: No Do you feel safe at home: Yes Do you feel safe in your relationship?: Yes Additional Social history: currently Lives with and cat. Says brother will not talk to him. [place] 03/04/23
[2024-05-01 13:53] LABS: Bilirubin Negative (Negative); Blood Negative (Negative); Clarity Clear (Clear); Glucose >=1000 mg/dL (Negative); Ketones Negative (Negative); Leukocyte Esterase Negative (Negative); Nitrite Negative (Negative); Urobilinogen 0.2 mg/dL (Up to 0.2); pH 5.5 (5-8)
[2024-05-01 14:07] LABS: Abs Immature Grans 0.02 10^3/uL (0.0-0.06); Absolute Basophil Count 0.01 10^3/uL (0.0-0.2); Absolute Eosinophil Count 0.02 10^3/uL (0.0-0.7); Absolute Lymphocyte Count 0.69 10^3/uL (1.2-3.4); Absolute Monocyte Count 0.16 10^3/uL (0.1-0.8); Absolute Neutrophil Count 3.02 10^3/uL (1.2-6.7); Basophils % 0.3 %; Eosinophils % 0.5 %; HCT 37.9 % (40.0-50.0); HGB 11.1 g/dL (13.5-17.5); Immature Grans % 0.5 %; Lymphocytes % 17.6 %; MCH 22.4 pg (27.0-33.0); MCHC 29.3 % (32.0-36.0); MCV 77 fL (80-95); MPV 9.6 fL (8.0-11.0); Monocytes % 4.1 %; Platelet Count 186 10^3/uL (130-400); RBC 4.95 10^6/uL (4.36-5.78); RDW 18.2 % (11.8-14.1); RDW-SD 48.5 fL; WBC 3.92 10^3/uL (4.4-10.8)
--- NOTE | 2024-05-01 14:07 | DI.RAD_ITS ---
Exam(s) XR CHEST 2V PA LATERAL EXAM: XR CHEST 2V PA LATERAL CLINICAL HISTORY: Cough TECHNIQUE: 2D digital imaging was performed. Two views. COMPARISON: CR,XR XR CHEST 2V PA LATERAL from 11/10/2022 FINDINGS: HEART: Normal size. Coronary artery stent. Aorta: Not dilated. PULMONARY VASCULATURE: Normal. MEDIASTINUM: Unremarkable. LUNGS: Underlying emphysematous and fibrotic changes. Basilar atelectasis or scarring. PLEURAL SPACE: No pleural effusion or pneumothorax. BONE:Degenerative changes in the spine. SOFT TISSUES: Unremarkable. IMPRESSION: No acute abnormality. DATA REPOSITORY: RADIATION DOSE DELIVERED:
[2024-05-01 14:08] LABS: COVID-19 PCR Negative (Negative); Influenza A PCR Positive (Negative); Influenza B PCR Negative (Negative); RSV PCR Negative (Negative)
[2024-05-01 14:09] LABS: Source Nasopharynx
[2024-05-01 14:10] LABS: Bacteria Moderate HPF (Negative); C & S Indicated? No; Casts Negative LPF (Negative); Crystals Negative HPF (Negative); Epithelial Cells Rare HPF (Negative); Mucus Negative (Negative); RBC 0-2 HPF (0-2); WBC 0-2 HPF (0-5)
[2024-05-01 14:22] LABS: PTT Activated 28.2 sec (20.6-30.2); Prothrombin Time 9.9 sec (9.1-11.1)
[2024-05-01 14:23] VITALS: BP 156/69; PULSE 81
[2024-05-01 14:24] LABS: ALT 49 U/L (16-63); AST 51 U/L (15-37); Acetaminophen 9 ug/mL (10-30); Albumin 3.8 g/dL (3.4-5.0); Alkaline Phosphatase 93 U/L (46-116); Anion Gap 9.6 mmol/L (3-11); BUN 18 mg/dL (7-18); CO2 28.4 mmol/L (21.0-32.0); CREATININE 1.3 mg/dL (0.70-1.30); Calcium 8.6 mg/dL (8.5-10.1); Chloride 101 mmol/L (98-107); Estimated GFR 60.21 (mL/min/1.73m2); Glucose 155 mg/dL (74-106); Potassium 3.1 mmol/L (3.5-5.1); Salicylate < 2.8 mg/dL (<2.8); Sodium 139 mmol/L (136-145); Total Protein 7.6 g/dL (6.4-8.2)
--- NOTE | 2024-05-01 14:30 | DI.VRAD_ITS ---
PROCEDURE INFORMATION: Exam: XR Chest Exam date and time: 05/01/2024 1:59 PM Age: 68 years old Clinical indication: Cough TECHNIQUE: Imaging protocol: Radiologic exam of the chest. Views: 2 views. COMPARISON: CR XR CHEST 2V PA LATERAL 11/10/2022 5:07 PM FINDINGS: Lungs: Bilateral linear atelectasis. No lobar consolidation. Pleural spaces: Unremarkable. No pleural effusion. No pneumothorax. Heart/Mediastinum: Unremarkable. No cardiomegaly. Bones/joints: Unremarkable. IMPRESSION: Multifocal linear atelectasis. Dictated and Authenticated by: Willie Santana MD. Orderin Myron Armas MD
--- NOTE | 2024-05-01 14:45 | DI.CT_ITS ---
Exam(s) CT ABDOMEN PELVIS W EXAM: CT ABDOMEN PELVIS W CLINICAL HISTORY: Lower abd pain. TECHNIQUE: Imaging Protocol: Axial computed tomography images with coronal and sagittal reformatted images were created and reviewed CONTRAST MATERIAL: Intravenous: Omnipaque 350 Contrast volume:100 ml Oral: no COMPARISON: CR,XR XR CHEST 2V PA LATERAL from 05/01/2024 FINDINGS: ABDOMEN and PELVIS: Exam is mildly limited by motion. Lung Bases: Bronchial wall thickening in the lower lobes. Small infiltrate versus atelectasis at the medial right lower lobe. Liver: Mildly enlarged. Mild hepatic steatosis. No suspicious mass. Gallbladder and biliary tract: No radiodense calculus. No wall thickening or pericholecystic fluid. No biliary dilation. Pancreas: Normal density. No abnormal calcifications or inflammatory process. No evidence of mass. Spleen: Elongated orientation. Overall not enlarged. Kidneys: Normal size, contour and axis. Small nonobstructing stone in the left kidney. No obstructi ve uropathy. No suspicious masses seen. Adrenal glands: No masses seen. Vasculature: Abdominal aorta non-dilated. Soft tissues: Unremarkable. Bladder: Mild wall thickening. No calculi.No focal mass. Bowel: No obstruction. Redundant sigmoid with gaseous distension. No evidence of volvulus. Moderat e quantity of stool. No bowel wall thickening. Mild diverticulosis. Appendix not visualized. Peritoneal cavity: No ascites. No focal collection. No mesenteric inflammatory response. No free air . Bones: Unremarkable for age. Reproductive organs: Prostate slightly enlarged with mild impression on the base of the bladder. Lymph nodes: No pathologically enlarged lymph nodes. IMPRESSION:: No acute abnormality in the abdomen or pelvis. RADIATION DOSE DELIVERED: Total DLP DATA REPOSITORY: All CT scans at this facility are submitted to the National Radiology Data Registry (NRDR) Dose Index Registry (DIR) with the [employer] (ACR). RADIATION OPTIMIZATION: All CT scans at this facility use at least one of these dose optimization te chniques: automated exposure control; mA and/or kV adjustment per patient size (includes targeted exa ms where dose is matched to clinical indication); or iterative reconstruction.
[2024-05-01] MEDS: Ketorolac 15 MG/ML VIAL IVP (15:18)
[2024-05-01] MEDS: Benzonatate 100 MG CAP PO (15:18)
[2024-05-01] MEDS: Omnipaque 350 MG/ML 100 ML BTL IJ (15:37)
[2024-05-01] MEDS: Normal Saline - Diluent 50 ML VIAL IJ (15:38)
--- NOTE | 2024-05-01 16:09 | DI.VRAD_ITS ---
PROCEDURE INFORMATION: Exam: CT Abdomen And Pelvis With Contrast Exam date and time: 05/01/2024 3:20 PM Age: 68 years old Clinical indication: Abdominal pain; Localized; Lower abd pain TECHNIQUE: Imaging protocol: Computed tomography of the abdomen and pelvis with contrast. COMPARISON: CR XR CHEST 2V PA LATERAL 05/01/2024 1:59 PM FINDINGS: Liver: Benign-appearing calcifications in the liver . Hepatomegaly 21 cm Gallbladder and biliary ducts: The gallbladder is unremarkable Pancreas: Pancreatic atrophy Spleen: Splenomegaly 16.9 cm.. Subcentimeter low attenuation area in the spleen is too small for characterization. Adrenal glands: Normal. No mass. Kidneys and ureters: Nonobstructing punctate left renal calculus. No ureteral calculus Stomach and bowel: Unremarkable. No obstruction. No mucosal thickening. Appendix: No evidence of appendicitis. Intraperitoneal space: Unremarkable. No free air. No significant fluid collection. Vasculature: Unremarkable. No abdominal aortic aneurysm. Lymph nodes: Unremarkable. No enlarged lymph nodes. Urinary bladder: Unremarkable as visualized. Reproductive: Unremarkable as visualized. Bones/joints: Unremarkable. No acute fracture. Soft tissues: Unremarkable. IMPRESSION: Splenomegaly 16.9 cm.. Dictated and Authenticated by: Camron Granados MD. Orderin Myron Armas MD
[2024-05-01] MEDS: Potassium Chloride 20 MEQ TABCR 40 MEQ PO (16:19)
[2024-05-01] MEDS: Oseltamivir 75 MG CAP PO (16:35)
[2024-05-01] MEDS: Benzonatate 100 MG CAP 400 MG PO (16:36)
[2024-05-01 16:40] VITALS: BP 181/85; PULSE 95; RESP 16; O2SAT 92
== END 2024-05-01 16:42 | disposition home or self-care (01) ==
PROVIDERS: Emergency Provider Registered Nurse Emergency; PCP Nurse Practitioner Family
DX: R10.30 Lower abdominal pain, unspecified (principal); J10.1 Influenza due to other identified influenza virus with other respiratory manifestations; I10 Essential (primary) hypertension; E78.5 Hyperlipidemia, unspecified; I25.10 Atherosclerotic heart disease of native coronary artery without angina pectoris; I25.2 Old myocardial infarction; E11.9 Type 2 diabetes mellitus without complications; Z79.82 Long term (current) use of aspirin; Z79.4 Long term (current) use of insulin; Z79.84 Long term (current) use of oral hypoglycemic drugs; Z87.891 Personal history of nicotine dependence; Z95.5 Presence of coronary angioplasty implant and graft
CPT/HCPCS: 36415; 80053; 87637; 96374; 99285; 71046; 74177; 80329; 81003; 81015; 85025; 85610; 85730; J1885; J3490

== ENCOUNTER 2024-05-31 04:27 | Outpatient (CLI) | payer MEDICARE, MEDICAID, SELFPAY ==
[2024-05-31 09:56] LABS: Anion Gap 11.9 mmol/L (3-11); BUN 13 mg/dL (7-18); CO2 23.1 mmol/L (21.0-32.0); CREATININE 1.1 mg/dL (0.70-1.30); Calcium 8.6 mg/dL (8.5-10.1); Chloride 104 mmol/L (98-107); Estimated GFR 73.58 (mL/min/1.73m2); Glucose 345 mg/dL (74-106); Sodium 139 mmol/L (136-145)
== END 2024-05-31 04:28 | disposition home or self-care (01) ==
LOC: LOS 04:28
PROVIDERS: PCP Nurse Practitioner Family; Visit Provider Nurse Practitioner Family
DX: E87.6 Hypokalemia (principal); Z51.81 Encounter for therapeutic drug level monitoring
CPT/HCPCS: 36415; 80048; 83735